=== PATIENT | female | born 1945 | race Caucasian/White ===

== ENCOUNTER 2019-08-20 15:51 | Outpatient (CLI) | payer MEDICARE, OTHER, SELFPAY ==
--- NOTE | ~2019-08-20 | US_ITS ---
EXAMINATION: US venous doppler [facility] DATE: 08/20/2019 16:36 INDICATION: Lower limb pain. TECHNIQUE: Grayscale ultrasound images without and with compression and Doppler ultrasound images of the bilateral lower extremity veins were obtained. COMPARISON: Ultrasound 08/03/2011 FINDINGS: The visualized portions of right common femoral vein, profunda (deep) femoral vein, femoral vein, pop liteal vein, peroneal veins, posterior tibial veins, and greater saphenous vein outflow are patent. The visualized portions of left common femoral vein, profunda femoral vein, femoral vein, popliteal v ein, peroneal veins, posterior tibial veins, and greater saphenous vein outflow are patent. IMPRESSION: 1. No deep venous thrombosis. Reviewed, dictated and finalized at location A.
== END 2019-08-20 15:52 | disposition home or self-care (01) ==
PROVIDERS: PCP Internal Medicine; Visit Provider Internal Medicine
DX: M79.604 Pain in right leg (principal); M79.605 Pain in left leg
CPT/HCPCS: 93970

== ENCOUNTER 2025-04-25 21:57 | Emergency (ER) | payer MEDICARE, BC, SELFPAY ==
--- OUTSIDE RECORDS SUMMARY | 2025-04-23 14:33 | XMS_ITS | Encounter Summary ---
Author Organization [facility] Healthcare Address [address] [place] [address] Care Team Providers Care Air And Water Tester Name Role Phone Jerome Dunn MD Primary Care Provider Bandar Ferrera MD Unavailable [phone] Encounter Details Date Type Department Care Team (Latest Contact Info) Description 04/23/2025 2:33 PM EQUITY HOLDER - 04/23/2025 11:59 PM EQUITY HOLDER Hospital Encounter [address] [address] Discharge Disposition: Discharge to home or self care Social History Tobacco Use Types Packs/Day Years Used Date Smoking Tobacco: Never Smokeless Tobacco: Never Alcohol Use Standard Drinks/Week Comments Not Currently 0 (1 standard drink = 0.6 oz pur e alcohol) OASIS D0700: Social Isolation Answer Da te Recorded Frequency of experiencing loneliness or isolatio n Never 04/03/2025 OASIS A1250: Transportation Answer Date Recorded Lack of Transportation (Medical) No 04/03/2025 Lack of Transportation (Non-Medical) No 04/03/2025 Patient Unable or Declines to Respond No 04/03/2025 OASIS B1300: Health Literacy Answer Moises e Recorded Frequency of needing help to read materials from doctor or pharmacy Always 04/03/2025 AUDIT-C Answer Date Recorded Q1: How often do you have a drink containing alc ohol? Never 05/27/2021 Average Number of Drinks Not on file 021 Frequency of Binge Drinking Not on file 05/13 PHQ-2 Answer Date Recorded PHQ-2 Total Score (If total score is 3 or more points, staff should administer the PHQ-9) 0 11/14/2024 Comments No Sex and Gender Information Value Date Recorded Sex Assigned at Not on file Legal Sex Female 3:43 AM EQUITY HOLDER Gender Identity Female 03/02/2021 12:42 PM CDT Sexual Orientation Straight 11/20/2018 1: 02 AM CDT documented as of this encounter Functional Status * BP Location Answer Date of Assessment Author Left arm 04/23/2025 12:51 PM EQUITY HOLDER Janet No RN * BP Location Answer Date of Assessment Author Left arm 04/23/2025 12:51 PM EQUITY HOLDER Janet No, ARMAAN documented as of this encounter Medications at Time of Discharge cholecalciferol (VITAMIN D-3) 1,000 unit cyanocobalamin (Vitamin B-12) 1,000 mcg tabletIndications :Prevention of Vitamin B12 Deficiency Take 1 tablet (1,000 mcg total) by mouth daily documented as of this encounter Discharge Disposition Disposition Code Departure Means Destination Discharge to home or self care documented in this encounter Plan of Treatment Not on file documented as of this encounter Procedures Procedure Name Priority Date/Time Associated Diagnosis Comments URINALYSIS AND REFLEX TO MICROSCOPIC AND CULTURE Routine 04/23/2025 12:30 PM EQUITY HOLDER documented in this encounter Results * Urinalysis reflex to microscopic and culture Urine (04/23/2025 12:30 PM EQUITY HOLDER) Color, ur Straw Yellow Clarity, ur Clear Clear [facility] Specific gravity, ur 1.011 1.003 - 1.030 [facility] pH, urine 5.5 [facility] Comment: Interpretive Data U rine pH is affected by diet, medications, systemic acid-base disturbances, and renal tubular function. pH may affect urinary stone formation. For example, urine pH below 6.0 may help reduce the tendency for calcium phosphate stones and pH greater than 6.0 may reduce the tendency for uric acid stone formation. Source: [facility] Current Interpretive Data was last revised on 2017 Protein, ur ql Negative Negative [facility] Glucose, ur ql Negative Negative [facility] Ketones, ur Negative Negative [facility] Bilirubin, ur Negative Negative [facility] Blood, ur Negative Negative [facility] Urobilinogen, ur <2.0 <2.0 mg/dL [facility] Nitrite, ur Negative Negative [facility] Leukocyte esterase, ur Negative Negative [facility] UA reflex comment Reflex conditions for microscopic UA and culture not met. [facility] Urine 04/23/2025 12:3 0 PM EQUITY HOLDER 04/23/2025 4:27 PM EQUITY HOLDER Jerome Dunn MD LAB MICROBIOLOGY - GEN ERAL ORDERABLES Final Result [facility] Department [place] [address] documented in this encounter Visit Diagnoses Not on filedocumented in this encounter Care Teams Air And Water Tester Relationship Specialty Start Date End Date Jerome Dunn MD PCP - General Internal Medicine 11/23/17 Bandar Ferrera MD Referring Physician Neurology 11/30/17 documented as of this encounter
--- OUTSIDE RECORDS SUMMARY | 2025-04-24 13:15 | XMS_ITS | Encounter Summary ---
Author Organization [facility] Healthcare Address [address] [place] [address] Care Team Providers Care Hand Driller Name Role Phone Jerome Dunn MD Primary Care Provider Bandar Ferrera MD Unavailable [phone] Reason for Visit * Auth/Cert (Routine) Specialty Diagnoses / Procedures Referred By Contac t Referred To Contact Referral ID Status Reason Start Date Expiration Date Visits Re quested Visits Authorized [id number] 1 1 Encounter Details Date Type Department Care Team (Late st Contact Info) Description 04/24/2025 1:15 PM CREDIT CHECKER Home Care Visit [facility] [address] [place] [address] Nancie Oscar, ENVIRONMENTAL SOLUTIONS ENGINEER ENVIRONMENTAL SOLUTIONS ENGINEER HOME VISIT Social History Tobacco Use Types Packs/Day Years [...] on file Legal Sex Female 3:43 AM CREDIT CHECKER Gender Identity Female 03/02/2021 12:42 PM CDT Sexual Orientation Straight 11/20/2018 1: 02 AM CDT documented as of this encounter Last Filed Vital Signs Vital Sign Reading Time Taken Comments Blood Pressure 132/80 04/24/2025 1:29 PM CREDIT CHECKER Pulse 71 04/24/2025 1:29 PM CREDIT CHECKER Temperature 36.4 C (97.5 F) 04/24/2025 1:29 PM CREDIT CHECKER Respiratory Rate 18 04/24/2025 1:29 PM CREDIT CHECKER Oxygen Saturation 98% 04/24/2025 1:29 PM CREDIT CHECKER Inhaled Oxygen Concentration - - Weight - - Height - - Body Mass Index - - documented in this encounter Functional Status * BP Location Answer Date of Assessment Author Right arm 04/24/2025 1:29 PM CREDIT CHECKER Nancie Aguilar SLP * BP Location Answer Date of Assessment Author Right arm 04/24/2025 1:29 PM CREDIT CHECKER Nancie Aguilar SLP documented as of this encounter Miscellaneous Notes * Home Health Plan for Next Visit - Nancie Oscar SLP - 04/24/2025 2:03 PM CST Reason for today's visit: skilled ST services for cognitive communication abilities Discuss plan of care with patient and patient caregiver. Discharge planning: DC when goals are met or max potential is reached Plan for next visit: therex for functional recall and safety awareness, education regarding cognitive strategies, and continued HEP development IT CHECKER documented in this encounter Plan of Treatment Not on file documented as of this encounter Visit Diagnoses Not on filedocumented in this encounter Home Health Visit - Care Plan Visit Details Visit Type -ENVIRONMENTAL SOLUTIONS ENGINEER Home Visit Discipline -Speech Language Pathology Problems Problem Description Start Date Status Goals Interve ntions Pressure Prevention Disciplines: Skilled Disciplines Pressure Prevention 04/03/2025 Active 1 goal linked to scheduled/documen cristy intervention 1 goal intervention scheduled/documen cristy in this visit Monitor patient's vital signs every home health visit Disciplines: Skilled Disciplines, SN, PT, OT, ENVIRONMENTAL SOLUTIONS ENGINEER, VOLCANOLOGY TEACHER Monitor patient's vital signs every home health visit. 04/03/2025 Active 1 goal linked to scheduled/documen cristy intervention 1 goal intervention scheduled/documen cristy in this visit Infection Prevention Disciplines: Skilled Disciplines Infection Prevention 04/03/2025 Active 1 goal linked to scheduled/documen cristy intervention 2 goal interventions scheduled/documen cristy in this visit Fall Precautions/Safe ty Concerns Disciplines: Skilled Disciplines Fall precautions and general safety 04/03/2025 Active 1 goal linked to scheduled/documen cristy intervention 1 goal intervention scheduled/documen cristy in this visit Knowledge Deficit - Other Disease Process and Management Disciplines: Skilled Disciplines Other disease process and management not already specified White Matter Disease 04/03/2025 Active 1 goal linked to scheduled/documen cristy intervention 2 goal interventions scheduled/documen cristy in this visit Depression Disciplines: Skilled Disciplines Depression 04/03/2025 Active 1 goal linked to scheduled/documen cristy intervention 3 goal interventions scheduled/documen cristy in this visit Instruct/evaluat e cognitive function Disciplines: Speech Language Pathology Review patient's current cognitive status and create management plan 04/10/2025 Active - 2 problem interventions scheduled/documen cristy in this visit Goals Goal Associated Problem Outcome Goal Met? Visit Notes Prevent development of pressure injuries Description: inspector type goal: The patient will maintain intact skin and avoid the development of pressure injuries within 1 month Short term goal: The patient/caregiver will understand and adhere to pressure prevention interventions within 2 visits Pressure Prevention No Measure vital signs during every home health visit during episode of care Description: Home dairy quality assurance officer to measure vital signs during every home health visit during episode of care. Monitor patient's vital signs every home health visit No Verbalize signs of infection Description: Patient/caregiver will demonstrate knowledge of infection prevention strategies by verbalizing signs and symptoms of infection. Infection Prevention No Demonstrate fall and safety precautions Description: Patient/caregiver maintains safe home environment as evidenced by remaining free from falls, injury due to falls, demonstrating safety precautions, and identifying strategies to reduce falls by 05/04/25 Fall Precautions/Safety Concerns No Understanding of disease process Description: Patient/caregiver will demonstrate understanding of disease process by verbalizing signs and symptoms, preventative measures, and when to report to home care agency or provider. Knowledge Deficit - Other Disease Process and Management No Demonstrate knowledge of depression Description: Patient/caregiver to demonstrate knowledge of depression as evidence by verbalization of signs and symptoms of depression and when to report to physician. Depression No Interventions Intervention Associated Problem/Goal Status Variance Visit Notes Instruct on Pressure Prevention Description: Instruct patient/caregiver on inspecting the skin regularly for signs of impaired skin integrity, repositioning the patient on an individualized schedule according to the patient's tissue tolerance, skin condition, mobility, medical condition, and treatm ent goals. Avoid vigorous massage and emphasize the importance of increasing activity and mobility. Avoid using donut-shaped devices and foam cutouts for pressure redistribution. Determine if patient is using or needs a pressure reduction surface. Instruct patient/caregiver on using moisture barriers and absorbent pads/briefs as needed, avoiding prolonged skin contact with wet materials, and cleaning and drying skin thoroughly after incontinence episodes. If patient is malnourished instruct patien t/caregiver on physician ordered diet, increased fluid intake if not contraindicated, and a list of possible protein sources to promote skin integrity. Problem:Pressure Prevention Goal:Prevent development of pressure injuries Performed Monitor Vital Signs Description: Monitor blood pressure, pulse, oxygen saturation, respirations Problem:Monitor patient's vital signs every home health visit Goal:Measure vital signs during every home health visit during episode of care Performed Educate Patient on Infection Prevention Description: Instruct patient on signs and symptoms of infection IE: fever, odor, change in color, increased amount of drainage, purulent drainage, warmth. Problem:Infection Prevention Goal:Verbalize signs of infection Performed Educate Family on Infection Prevention Description: Instructed family on signs and symptoms of infection IE: fever, odor, change in color, increased amount of drainage, purulent drainage, warmth. Problem:Infection Prevention Goal:Verbalize signs of infection Performed High Fall Risk Precautions Description: Instruct patient/caregiver to use proper lighting in all areas, stand/sit up slowly, use appropriate footwear when walking, use proper assistive devices, and to keep pathways clear of cords and clutter to prevent falls. Remove/secure throw rugs. Educate patient on medications and disease processes that increase fall risk, using corrective lenses as prescribed, placing hard to reach items within reach, what to do in the event of a fall and to report any falls to the home health agency. Problem:Fall Precautions/Safety Concerns Goal:Demonstrate fall and safety precautions Performed Instructed patient/caregiver on fall risk prevention including: standing/sitting up slowly and using proper assistive devices Patient and Caregiver verbalized understanding Notification of Complications Description: Instruct patient/caregiver when to notify SN/MD of complications Problem:Knowledge Deficit - Other Disease Process and Management Goal:Understanding of disease process Performed Instruct on Disease Process Description: Instruct patient/caregiver on disease process and management White Matter Disease Problem:Knowledge Deficit - Other Disease Process and Management Goal:Understanding of disease process Performed Instruct on Depression Description: Instruct patient/caregiver on signs/symptoms of depression. Problem:Depression Goal:Demonstrate knowledge of depression Performed Assess signs/symptoms of Depression Description: Assess signs/symptoms of depression and emotional well-being. Problem:Depression Goal:Demonstrate knowledge of depression Performed Assess depression Description: Assess depression. Problem:Depression Goal:Demonstrate knowledge of depression Performed Assess cognitive status Description: Assess and/or reassess cognitive status. Problem:Instruct/analisa lovett cognitive function Performed Targeted carryover from recall task from previous visit (recall of energy conservation strategies) with 4/5 acc with minimal skilled v/v instruction required. Instruct cognitive strategies Description: Instruct patient/caregiver in cognitive strategies. Problem:Instruct/analisa lovett cognitive function Performed Education regarding memory strategies including writing information down (using a calendar for managing appointments/events, keeping a pad of paper and pen near where she sits, writing down a few events from each day), repetition (saying something over a nd over or doing something over and over), routine (doing things in the same order everytime, keeping items in the same place), association (connecting something new to something she already knows), visualization (picture it), and humor with handout prov ided and patient demonstrating comprehension. documented in this encounter Care Teams Hand Driller Relationship Specialty Start Date End Date Jerome Dunn MD PCP - General Internal Medicine 11/23/17 Bandar Ferrera MD Referring Physician Neurology 11/30/17 documented as of this encounter
--- NOTE | ~2025-04-25 | XR_ITS ---
XR knee RT 3V INDICATION: fall . COMPARISON: None. FINDINGS: Frontal, lateral and oblique views of the right knee demonstrate no acute fracture or dislocation. There is no joint effusion. Knee arthroplasty is noted. Components are well-seated. No loosening evident. IMPRESSION: Radiographic examination of the right knee demonstrates no acute fracture or dislocation. Reviewed, dictated and finalized at location S. RNATIONAL LOGISTICS MANAGER IMPRESSION: Radiographic examination of the right knee demonstrates no acute fracture or di slocation.
--- NOTE | ~2025-04-25 | CT_ITS ---
CT cervical spine wo con HISTORY: fall COMPARISON: None TECHNIQUE: Axial images of the cervical spine were obtained. Multiplanar reconstruction in the coronal, sagittal and axial reformats to evaluate for cervical fracture. FINDINGS: The images demonstrate no acute fracture or paravertebral soft tissue swelling. Moderate multilevel degenerative changes with facet joint arthropathy resulting in moderate neural foraminal narrowing. There is no severe central canal stenosis. 4 mm pulmonary nodule within the left upper lobe. IMPRESSION: No acute fracture or subluxation. All CT scans at this facility are performed using low dose modulation techniques as appropriate to perform exam including the following: automated exposure control; adjustment of the mA and/or kV according to patient size (this includes techniques or standardized protocols for targeted exams where does is matched to indication/reason for exam; i.e. extremities or head); use of iterative reconstruction technique). Reviewed, dictated and finalized at location S. LOPE FOLDING MACHINE ADJUSTER IMPRESSION: No acute fracture or subluxation. All CT scans at this facility are performed using low dose modulation techniqu es as appropriate to perform exam including the following: automated exposure c ontrol; adjustment of the mA and/or kV according to patient size (this includes techniques or standardized protocols for targeted exams where does is matched to indication/reason for exam; i.e. extremities or head); use of iterative charlie nstruction technique).
--- NOTE | ~2025-04-25 | CT_ITS ---
CT brain wo con HISTORY:fall COMPARISON: None. TECHNIQUE: Axial images were obtained of the head without intravenous contrast. FINDINGS: No acute intracranial hemorrhage, mass effect or midline shift. No extra-axial fluid collections. There is generalized atrophy and chronic white matter microangiopathic changes within the periventricular white matter. Left frontal scalp hematoma is noted.There is a polyp or mucous retention cysts in the left maxillary sinus. Remaining visualized paranasal sinuses and mastoid air cells are clear. IMPRESSION: No acute intracranial hemorrhage or extra axial fluid collections. Generalized atrophy and chronic white matter microangiopathic changes. All CT scans at this facility are performed using low dose modulation techniques as appropriate to perform exam including the following: automated exposure control; use of iterative reconstruction technique; adjustment of the mA and/or kV according to patient size (this includes techniques or standardized protocols for targeted exams where dose is matched to indication/reason for exam). Reviewed, dictated and finalized at location S. PAD KNOCKOUT WORKER IMPRESSION: No acute intracranial hemorrhage or extra axial fluid collections. Generalized atrophy and chronic white matter microangiopathic changes. All CT scans at this facility are performed using low dose modulation techniqu es as appropriate to perform exam including the following: automated exposure c ontrol; use of iterative reconstruction technique; adjustment of the mA and/or kV according to patient size (this includes techniques or standardized protocol s for targeted exams where dose is matched to indication/reason for exam).
--- OUTSIDE RECORDS SUMMARY | 2025-04-25 10:00 | XMS_ITS | Encounter Summary ---
Author Organization [facility] Healthcare Address [address] [place] [address] Care Team Providers Care General Office Associate Name Role Phone Jerome Dunn MD Primary Care Provider Bandar Ferrera MD Unavailable [phone] Reason for Visit * Auth/Cert (Routine) Specialty Diagnoses / Procedures Referred By Contac t Referred To Contact Referral ID Status Reason Start Date Expiration Date Visits Re quested Visits Authorized [id number] 1 1 Encounter Details Date Type Department Care Team (Late st Contact Info) Description 04/25/2025 10:00 AM EXHAUST TENDER Home Care Visit [facility] [address] [address] [address] [place] [address] Suzi Bellamy OT OT REASSESSMENT Social History Tobacco Use Types Packs/Day Years [...] on file Legal Sex Female 3:43 AM EXHAUST TENDER Gender Identity Female 03/02/2021 12:42 PM CDT Sexual Orientation Straight 11/20/2018 1: 02 AM CDT documented as of this encounter Last Filed Vital Signs Vital Sign Reading Time Taken Comments Blood Pressure 132/68 04/25/2025 10:32 AM EXHAUST TENDER Pulse 73 04/25/2025 10:32 AM EXHAUST TENDER Temperature 36.4 C (97.5 F) 04/25/2025 10:32 AM EXHAUST TENDER Respiratory Rate 18 04/25/2025 10:32 AM EXHAUST TENDER Oxygen Saturation 96% 04/25/2025 10:32 AM EXHAUST TENDER Inhaled Oxygen Concentration - - Weight - - Height - - Body Mass Index - - documented in this encounter Functional Status * BP Location Answer Date of Assessment Author Left arm 04/25/2025 10:32 AM EXHAUST TENDER Suzi Bellamy OT * BP Location Answer Date of Assessment Author Left arm 04/25/2025 10:32 AM EXHAUST TENDER Suzi Bellamy OT documented as of this encounter Plan of Treatment Not on file documented as of this encounter Visit Diagnoses Not on filedocumented in this encounter Home Health Visit - Care Plan Visit Details Visit Type -OT Reassessment Discipline -Occupational Therapy Problems Problem Description Start Date Status Goals Interve ntions Pressure Prevention Disciplines: Skilled Disciplines Pressure Prevention 04/03/2025 Active 1 goal linked to scheduled/documen cristy intervention 1 goal intervention scheduled/documen cristy in this visit Monitor patient's vital signs every home health visit Disciplines: Skilled Disciplines, SN, PT, OT, SOIL FERTILITY EXTENSION SPECIALIST, PORT PATROL OFFICER Monitor patient's vital signs every home health [...] goal interventions scheduled/documen cristy in this visit Goals Goal Associated Problem Outcome Goal Met? Visit Notes Prevent development of pressure injuries Description: truck terminal manager goal: The patient will maintain intact skin and avoid the development of pressure injuries within 1 month Short term goal: The patient/caregiver will understand and adhere to pressure prevention interventions within 2 visits Pressure Prevention No Measure vital signs during every home health visit during episode of care Description: Home behavior clinician to measure vital signs during every home [...] Problem:Pressure Prevention Goal:Prevent development of pressure injuries Scheduled Monitor Vital Signs Description: Monitor blood pressure, pulse, oxygen saturation, respirations Problem:Monitor patient's vital signs every home health visit Goal:Measure vital signs during every home health visit during episode of care Scheduled Educate Patient on Infection Prevention Description: Instruct patient on signs and symptoms of infection IE: fever, odor, change in color, increased amount of drainage, purulent drainage, warmth. Problem:Infection Prevention Goal:Verbalize signs of infection Scheduled Educate Family on Infection Prevention Description: Instructed family on signs and symptoms of infection IE: fever, odor, change in color, increased amount of drainage, purulent drainage, warmth. Problem:Infection Prevention Goal:Verbalize signs of infection Scheduled High Fall Risk Precautions Description: Instruct patient/caregiver [...] Precautions/Safety Concerns Goal:Demonstrate fall and safety precautions Scheduled Notification of Complications Description: Instruct patient/caregiver when to notify SN/MD of complications Problem:Knowledge Deficit - Other Disease Process and Management Goal:Understanding of disease process Scheduled Instruct on Disease Process Description: Instruct patient/caregiver on disease process and management White Matter Disease Problem:Knowledge Deficit - Other Disease Process and Management Goal:Understanding of disease process Scheduled Instruct on Depression Description: Instruct patient/caregiver on signs/symptoms of depression. Problem:Depression Goal:Demonstrate knowledge of depression Scheduled Assess signs/symptoms of Depression Description: Assess signs/symptoms of depression and emotional well-being. Problem:Depression Goal:Demonstrate knowledge of depression Scheduled Assess depression Description: Assess depression. Problem:Depression Goal:Demonstrate knowledge of depression Scheduled documented in this encounter Care Teams General Office Associate Relationship Specialty Start Date End Date Jerome Dunn MD PCP - General Internal Medicine 11/23/17 Bandar Ferrera MD Referring Physician Neurology 11/30/17 documented as of this encounter
--- OUTSIDE RECORDS SUMMARY | 2025-04-25 10:00 | XMS_ITS | Encounter Summary ---
Author Organization [facility] Healthcare Address [address] [place] [address] Care Team Providers Care Waste Water Plant Operator Name Role Phone Jerome Dunn MD Primary Care Provider Bandar Ferrera MD Unavailable [phone] Reason for Visit * Auth/Cert (Routine) Specialty Diagnoses / Procedures Referred By Contac t Referred To Contact Referral ID Status Reason Start Date Expiration Date Visits Re quested Visits Authorized [id number] 1 1 Encounter Details Date Type Department Care Team (Late st Contact Info) Description 04/25/2025 10:00 AM SIEBEL DEVELOPER Home Care Visit [facility] [address] [address] [address] [place] [address] Suzi Bellamy OT OT REASSESSMENT Social History [...] on file Legal Sex Female 3:43 AM SIEBEL DEVELOPER Gender Identity Female 03/02/2021 12:42 PM CDT Sexual Orientation Straight 11/20/2018 1: 02 AM CDT documented as of this encounter Last Filed Vital Signs Vital Sign Reading Time Taken Comments Blood Pressure 132/68 04/25/2025 10:32 AM SIEBEL DEVELOPER Pulse 73 04/25/2025 10:32 AM SIEBEL DEVELOPER Temperature 36.4 C (97.5 F) 04/25/2025 10:32 AM SIEBEL DEVELOPER Respiratory Rate 18 04/25/2025 10:32 AM SIEBEL DEVELOPER Oxygen Saturation 96% 04/25/2025 10:32 AM SIEBEL DEVELOPER Inhaled Oxygen Concentration - - Weight - - Height - - Body Mass Index - - documented in this encounter Functional Status * BP Location Answer Date of Assessment Author Left arm 04/25/2025 10:32 AM SIEBEL DEVELOPER Suzi Bellamy OT * BP Location Answer Date of Assessment Author Left arm 04/25/2025 10:32 AM SIEBEL DEVELOPER Suzi Bellamy OT documented as of this [...] visit Disciplines: Skilled Disciplines, SN, PT, OT, MERCHANDISE FOR RESALE PURCHASING AGENT, SURVEILLANCE OBSERVER Monitor patient's vital signs every home health [...] Notes Prevent development of pressure injuries Description: long term care pharmacist goal: The patient will maintain intact skin and avoid the development of pressure injuries within 1 month Short term goal: The patient/caregiver will understand and adhere to pressure prevention interventions within 2 visits Pressure Prevention No Measure vital signs during every home health visit during episode of care Description: Home auto transmission specialist to measure vital signs during every home [...] Scheduled documented in this encounter Care Teams Waste Water Plant Operator Relationship Specialty Start Date End Date Jerome Dunn MD PCP - General Internal Medicine 11/23/17 Bandar Ferrera MD Referring Physician Neurology 11/30/17 documented as of this encounter
--- OUTSIDE RECORDS SUMMARY | 2025-04-25 21:59 | XMS_ITS | Encounter Summary ---
Author Organization [facility] Address [address] [place] [address] Care Team Providers Care Windshield Repair Technician Name Role Phone Jerome Dunn MD Primary Care Provider Encounter Details Date Type Department Care Team (Late st Contact Info) Description 07/20/2007 Outpatient [facility] Internal Medicine [facility] [address] [place] [phone] Bere arizmendi, MD Rubi Social History Tobacco Use Types Packs/Day Years Used Date Smoking Tobacco: Never Assessed Comments Unknown Sex and Gender Information Value Date Recorded Sex Assigned at Not on file Legal 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
--- OUTSIDE RECORDS SUMMARY | 2025-04-25 21:59 | XMS_ITS | Encounter Summary ---
Author Organization [facility] Address [address] [place] [address] Care Team Providers Care Carpet Floor Layer Apprentice Name Role Phone Jerome Dunn MD Primary Care Provider Encounter Details Date Type Department Care Team (Latest Contact Info) Description 01/19/2008 Outpatient [facility] Internal Medicine [facility] [address] [place] [phone] Rubi Guzman MD NO ADDRESS ON FILE DM w/o Complication Type II, Uncontrolled Social History Tobacco Use Types Packs/Day Years Used Date Smoking Tobacco: Never Alcohol Use Standard Drinks/Week Comments Yes 0 (1 standard drink = 0.6 oz pur e alcohol) Comments No Sex and Gender Information Value Date Recorded Sex Assigned at Not on file 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 Gender Identity Not on file Sexual Orientation Straight 04/11/2023 9: 46 PM CDT documented as of this encounter Plan of Treatment Not on file documented as of this encounter Procedures Procedure Name Priority Date/Time Associated Diagnosis Comments TSH Routine 01/19/2008 9:35 AM CDT HEMOGLOBIN A1C Routine 01/19/2008 9:35 AM CDT LIPID PANEL Routine 01/19/2008 9:35 AM CDT COMPREHENSIVE METABOLIC PANEL Routine 01/19/2008 9:35 AM CDT documented in this encounter Results * (ABNORMAL) LIPID PANEL (01/19/2008 9:35 AM CDT) HDL 47 40 - 59 mg/dL [facility] CHOLESTEROL 226(H) 100 - 199 mg/dL [facility] CHOL/HDL RATIO 4.8 2.0 - 5.0 [facility] TRIGLYCERIDE 164(H) 10 - 149 mg/dL [facility] LDL CALCULATED 146(H) <=99 mg/dL [facility] LIPID PANEL COMMENT See Below [facility] Comment: The adult ATP and pediatric NCEP classifications for lipids are available on the [facility] Intranet at: [email or web address] memorial [email or web address] Select: Lab Policies and Procedures,Current Select: Lipid Panel Interpretation Blood specimen (specimen) 01/19/2008 9:35 AM CDT 01/19/2008 12:37 PM CDT Rubi Guzman MD CHEMISTRY ORDERABLES Edit ed Performing Organization Address [facility] Co de Phone Number [facility] CLIA# [id number] [address] [place] [address] * (ABNORMAL) HEMOGLOBIN A1C (01/19/2008 9:35 AM CDT) HEMOGLOBIN A1C 10.4(H) 4.1 - 6.1 % of Hgb [facility] GLUCOSE, MEAN BLOOD 293 mg/dL [facility] Blood specimen (specimen) 01/19/2008 9:35 AM CDT 01/19/2008 12:37 PM CDT Rubi Guzman MD CHEMISTRY ORDERABLES Mahi l Result Performing Organization Address [facility] Co de Phone Number [facility] CLIA# [id number] [address] [place] [address] * TSH (01/19/2008 9:35 AM CDT) TSH 1.59 0.27 - 4.20 uU/mL [facility] Blood specimen (specimen) 01/19/2008 9:35 AM CDT 01/19/2008 12:37 PM CDT Rubi Guzman MD CHEMISTRY ORDERABLES Mahi tolbert Result [facility] CLIA# [id number] [address] [place] [address] * (ABNORMAL) COMPREHENSIVE METABOLIC PANEL (01/19/2008 9:35 AM CDT) Pathologist [facility] CALCIUM 10.0 8.6 - 10.2 mg/dL [facility] Comment:Otto mejia ce range effective 01/11/08 ALT 20 0 - 31 U/L [facility] SODIUM 140 135 - 145 mmol/L [facility] GLUCOSE 239(H) 65 - 99 mg/dL [facility] CO2 26 22 - 30 mmol/L [facility] BILIRUBIN TOTAL 0.5 0.2 - 1.0 mg/dL [facility] CREATININE 0.63 0.51 - 0.95 mg/dL [facility] POTASSIUM 4.7 3.5 - 4.9 mmol/L [facility] TOTAL PROTEIN 7.6 6.3 - 8.6 g/dL [facility] AST 20 12 - 32 U/L [facility] BUN 13 6 - 20 mg/dL [facility] ALKALINE PHOSPHATASE 86 35 - 104 U/L [facility] ALBUMIN 4.5 3.4 - 4.8 g/dL [facility] CHLORIDE 103 96 - 108 mmol/L [facility] GFR, >60 >=60 mL/min/1. 7 sq meter [facility] GFR >60 >=60 mL/min/1. 7 sq meter [facility] Comment: Modification of Diet in Renal Disease (MDRD) study formula. Estimated GFR rate interpretative information for both Americans and non- Americans is available on the [facility] Intranet at: [email or web address] Select: Lab Policies and Procedures Select: Reference Ranges - GFR Blood specimen (specimen) 01/19/2008 9:35 AM CDT 01/19/2008 12:37 PM CDT Rubi Guzman MD CHEMISTRY ORDERABLES Edit ed [facility] CLIA# [id number] [address] [place] [address] documented in this encounter Visit Diagnoses Diagnosis Type II or unspecified type diabetes mellitus without mention of complication, uncontrolled documented in this encounter Care Teams Carpet Floor Layer Apprentice Relationship Specialty Start Date End Date Jerome Dunn MD [address] [place] [address] PCP - General Internal Medicine 10/30/20 documented as of this encounter
--- OUTSIDE RECORDS SUMMARY | 2025-04-25 21:59 | XMS_ITS | Encounter Summary ---
Author Organization [facility] Address [address] [place] [place] [address] Care Team Providers Care Maintenance Pipefitter Name Role Phone Jerome Dunn MD Primary Care Provider Encounter Details Date Type Department Care Team (Latest Contact Info) Description 03/17/2007 [facility]patient [facility] [address] [address] [place] [phone] Rubi Oscar DM w/o Complication Type II (CMS/HCC) (Primary Dx) Social History Tobacco Use Types Packs/Day Years Used Date Smoking Tobacco: Never Assessed Comments Unknown Sex and Gender Information Value Date Recorded Sex Assigned at Not on file 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 Gender Identity Not on file Sexual Orientation Straight 04/11/2023 9: 46 PM CDT documented as of this encounter Plan of Treatment Not on file documented as of this encounter Procedures Procedure Name Priority Date/Time Associated Diagnosis Comments MICROALBUMIN/CREATININ E RATIO, RANDOM UR Routine 03/17/2007 8:58 AM CDT TSH Routine 03/17/2007 8:58 AM CDT HEMOGLOBIN A1C Routine 03/17/2007 8:58 AM CDT LIPID PANEL Routine 03/17/2007 8:58 AM CDT COMPREHENSIVE METABOLIC PANEL Routine 03/17/2007 8:58 AM CDT documented in this encounter Results * MICROALBUMIN/CREATININE RATIO, RANDOM UR (03/17/2007 8:58 AM CDT) MICROALBUMIN/C REAT RATIO, UR 3 0 - 29 mg/g creatinine INTERFACE SYSTEM 03/17/2007 8:58 AM CDT Glistenrudolph exozetblueSalesforce Buddy Mediabrenna URINE ORDERABLES Edited Performing Organization Address [facility] Phone Number INTERFACE SYSTEM Refer to clinic/hospital department * (ABNORMAL) HEMOGLOBIN A1C (03/17/2007 8:58 AM CDT) HEMOGLOBIN A1C 7.7(H) 4.1 - 6.1 % of Hgb INTERFACE SYSTEM GLUCOSE, MEAN BLOOD 197 mg/dL INTERFACE SYSTEM 03/17/2007 8:58 AM CDT AcEmpireadrian McdanielSalesforce Buddy Mediabrenna CHEMISTRY ORDERABLES Edited Performing Organization Address [facility] Phone Number INTERFACE SYSTEM Refer to clinic/hospital department * TSH (03/17/2007 8:58 AM CDT) Pathologist [facility] TSH 1.57 0.27 - 4.20 uU/mL INTERFACE SYSTEM 03/17/2007 8:58 AM CDT AcEmpireadrian exozetblueSalesforce Buddy Mediabrenna CHEMISTRY ORDERABLES Edited Performing Organization Address [facility] Phone Number INTERFACE SYSTEM Refer to clinic/hospital department * (ABNORMAL) COMPREHENSIVE METABOLIC PANEL (03/17/2007 8:58 AM CDT) GLUCOSE 175(H) 65 - 99 mg/dL INTERFACE SYSTEM CREATININE 0.77 0.51 - 0.95 mg/dL INTERFACE SYSTEM CALCIUM 9.4 8.4 - 10.2 mg/dL INTERFACE SYSTEM ALKALINE PHOSPHATASE 79 35 - 104 U/L INTERFACE SYSTEM AST 23 12 - 32 U/L INTERFACE SYSTEM ALT 15 0 - 31 U/L INTERFACE SYSTEM TOTAL PROTEIN 7.5 6.3 - 8.6 g/dL INTERFACE SYSTEM ALBUMIN 4.3 3.4 - 4.8 g/dL INTERFACE SYSTEM BILIRUBIN TOTAL 0.7 0.2 - 1.0 mg/dL INTERFACE SYSTEM BUN 12 6 - 20 mg/dL INTERFACE SYSTEM SODIUM 138 135 - 145 mmol/L INTERFACE SYSTEM POTASSIUM 4.1 3.5 - 4.9 mmol/L INTERFACE SYSTEM CHLORIDE 102 96 - 108 mmol/L INTERFACE SYSTEM CO2 24 22 - 30 mmol/L INTERFACE SYSTEM GFR, >60 >=60 mL/min/1. 7 sq meter INTERFACE SYSTEM GFR >60 >=60 mL/min/1. 7 sq meter INTERFACE SYSTEM Comment: Estimated GFR rate interpretative information for both Americans and non- Americans is available on the [facility] Intranet at: [email or web address] Select: Lab Policies and Procedures Select: Reference Ranges - GFR 03/17/2007 8:58 AM CDT [employer] CHEMISTRY ORDERABLES Edited Performing Organization Address [facility] de Phone Number INTERFACE SYSTEM Refer to clinic/hospital department * (ABNORMAL) LIPID PANEL (03/17/2007 8:58 AM CDT) CHOLESTEROL 210(H) 100 - 199 mg/dL INTERFACE SYSTEM TRIGLYCERIDE 163(H) 10 - 149 mg/dL INTERFACE SYSTEM HDL 47 40 - 59 mg/dL INTERFACE SYSTEM CHOL/HDL RATIO 4.5 2.0 - 5.0 INTER FACE SYSTEM LDL CALCULATED 130(H) <=99 mg/dL INTERFACE SYSTEM LIPID PANEL COMMENT See Below INTERFACE SYSTEM Comment: The adult ATP and pediatric NCEP classifications for lipids are available on the [facility] Intranet at: [email or web address] Select: Lab Policies and Procedures,Current Select: Lipid Panel Interpretation 03/17/2007 8:58 AM CDT Pilaipun Saengsamran CHEMISTRY ORDERABLES Edited Performing Organization Address City/[facility]/ZIP Co de Phone Number INTERFACE SYSTEM Refer to clinic/hospital department documented in this encounter Visit Diagnoses Diagnosis Type II or unspecified type diabetes mellitus without mention of complication, not stated as uncontrolled- Primary documented in this encounter Care Teams Maintenance Pipefitter Relationship Specialty Start Date End Date Jerome Dunn MD [address] [address] PCP - General Internal Medicine 10/30/20 documented as of this encounter
--- OUTSIDE RECORDS SUMMARY | 2025-04-25 21:59 | XMS_ITS | Encounter Summary ---
Author Organization [facility] Address 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 Gender Identity Not on file Sexual Orientation Straight 04/11/2023 9: 46 PM CDT documented as of this encounter Last Filed Vital Signs Vital Sign Reading Time Taken Comments Blood Pressure 140/90 01/03/2007 3:00 PM CDT Pulse 88 01/03/2007 3:00 PM CDT Temperature 36.7 C (98 F) 01/03/2007 3:00 PM CDT Respiratory Rate 20 01/03/2007 3:00 PM CDT Oxygen Saturation - - Inhaled Oxygen Concentration - - Weight 106.1 kg (234 lb) 01/03/2007 3:00 PM CDT Height 163.8 cm (5' 4.5) 01/03/2007 3:00 PM CDT Body Mass Index 39.55 01/03/2007 3:00 PM CDT documented in this encounter Plan of Treatment Not on file documented as of this encounter Visit Diagnoses Not on filedocumented in this encounter Care Teams Hot Dip Tinning Supervisor Relationship Specialty Start Date End Date Jerome Dunn MD [address] [place] [address] PCP - General Internal Medicine 10/30/20 documented as of this encounter
--- OUTSIDE RECORDS SUMMARY | 2025-04-25 22:00 | XMS_ITS | Encounter Summary ---
Author Organization [facility] Address [address] [place] [address] Care Team Providers Care Methane Gas Collection System Operator Name Role Phone Jerome Dunn MD Primary Care Provider Encounter Details Date Type Department Care Team (Late st Contact Info) Description 04/08/2008 Outpatient [facility] Betzaida Hodge MD [address] 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 Gender Identity Not on file Sexual Orientation Straight 04/11/2023 9: 46 PM CDT documented as of this encounter Plan of Treatment Not on file documented as of this encounter Procedures Procedure Name Priority Date/Time Associated Diagnosis Comments CT CHEST W CONTRAST Routine 04/08/2008 10:55 AM CDT XR FLUORO LESS THAN 1 HOUR Timed Study 04/08/2008 10:24 AM CDT documented in this encounter Results * CT CHEST W CONTRAST (04/08/2008 10:55 AM CDT) Anatomical Region Laterality Modality Chest Other 04/08/2008 10:5 5 AM CDT Narrative 04/09/2008 8:57 AM CDT [address] [place], [place] [address] Admit Date: 04/08/2008 JUSTA PATIÑO Sex: F Admit Prov: BETZAIDA HODGE Date: 1945 Primary Care Prov: LYNNE CLIFTON CMRN: [id number] Room: [facility] SSN: [id number] IMAGING SERVICES Ordering Prov: N/A Accession Number: [id number] Interpretation CT CHEST WITH IV CONTRAST, 04/08/08 Clinical History: 786.2, cough, elevated right hemidiaphragm. CT of the chest was performed with IV contrast. There are no previous CT scans of the chest available for comparison. The right hemidiaphragm is elevated. Atelectatic changes are present in the right lower lobe. Scattered mediastinal calcifications are present in the aorticopulmonary window and subcarinal region. A calcified granuloma is present posteriorly in the left lower lobe on image 34. On image 7 there is a 5 mm pulmonary parenchymal noncalcified nodular density. There is no evidence of pleural effusion or pneumothorax. Opinion: There is elevation of the right hemidiaphragm and atelectatic changes in the right lower lobe. There is a noncalcified pulmonary nodular density in the right lung apex. Followup is recommended. Mediastinal calcifications are present in the subcarinal region and aorticopulmonary window. . Dictated by: BAIRON LUI 04/08/2008 13:21 Electronically signed by: BAIRON LUI 04/09/2008 08:56 Transcribed: 04/08/2008 14:57 LE Procedure Note Bairon Lui MD - 04/09/2008 [facility] [address] [place], [place] [address] Admit Date: 04/08/2008 JUSTA PATIÑO Sex: F Admit Prov: BETZAIDA HODGE Date:1945 Primary Care Prov: LYNNE CLIFTON CMRN: [id number] [facility] [id number] IM[facility] Ordering Prov: N/A Interpretation CT CHEST WITH IV CONTRAST, 04/08/08 Clinical History: 786.2, cough, elevated right hemidiaphragm. CT of the chest was performed with IV contrast. There are no previousCT scans of the chest available for comparison. The right hemidiaphragmis elevated. Atelectatic changes are present in the right lower lobe. Scattered mediastinal calcifications are present in theaorticopulmonary window and subcarinal region. A calcified granuloma is presentposteriorly in the left lower lobe on image 34. On image 7 there is a 5 mmpulmonary parenchymal noncalcified nodular density. There is no evidence ofpleural effusion or pneumothorax. Opinion: There is elevation of the right hemidiaphragm and atelectatic changesin the right lower lobe. There is a noncalcified pulmonary nodular density in the right lungapex. Followup is recommended. Mediastinal calcifications are present in the subcarinal region and aorticopulmonary window. . Dictated by: BAIRON LUI 04/08/2008 13:21 Electronically signed by: BAIRON LUI 04/09/2008 08:56 Transcribed: 04/08/2008 14:57 LE Betzaida Hodge MD CT ORDERABLES Final Result * XR FLUORO < 1 HOUR (04/08/2008 10:24 AM CDT) Anatomical Region Laterality Modality Other 04/08/2008 10:2 4 AM CDT Narrative 04/09/2008 7:[address] [facility] [address] [place], [place] [address] Admit Date: 04/08/2008 LAMARTRUDYJUSTA BOND Sex: F Admit Prov: BETZAIDA HODGE Date: 1945 Primary Care Prov: LYNNE CLIFTON CMRN: [id number] Room: [facility] SSN: [id number] IMAGING SERVICES Ordering Prov: N/A Accession Number: [id number] Interpretation FLUOROSCOPY OF THE CHEST FOR ASSESSMENT OF DIAPHRAGMATIC MOTION, 04/08/2008 Clinical History: Prior neck injury, elevated diaphragm, 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 A preliminary tree climber radiograph of the chest demonstrates a prominently elevated right hemidiaphragm. Fluoroscopic observation of diaphragmatic movement was obtained during quiet respiration, deep inspiration and during sniffing. There is noted to be some definitive paradoxical movement of the elevated right diaphragm during inspiration and sniffing, consistent with right diaphragmatic paralysis. Left diaphragmatic movement appears normal. Impression: Markedly elevated right diaphragm with definitive paradoxical right diaphragmatic movement, compatible with right diaphragmatic paralysis. . Dictated by: CHANDRA SWANSON 04/08/2008 10:49 Electronically signed by: CHANDRA SWANSON 04/09/2008 07:28 Transcribed: 04/08/2008 13:30 SMM Procedure Note Chandra Swanson MD - 04/09/[address] [address] Admit Date: 04/08/2008 PARIMONTYJUSTA AGUAYO Sex: F Admit Prov: BETZAIDA HODGE Date:1945 Primary Care Prov: LYNNE CLIFTON CMRN: [id number] Room: [facility] SSN: [id number] IMAGING SERVICES Ordering Prov: N/A Interpretation FLUOROSCOPY OF THE CHEST FOR ASSESSMENT OF DIAPHRAGMATIC MOTION,04/08/2008 Clinical History: Prior neck injury, elevated diaphragm, 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 A preliminary tree climber radiograph of the chest demonstrates aprominently elevated right hemidiaphragm. Fluoroscopic observation ofdiaphragmatic movement was obtained during quiet respiration, deep inspiration andduring sniffing. There is noted to be some definitive paradoxical movementof the elevated right diaphragm during inspiration and sniffing, consistentwith right diaphragmatic paralysis. Left diaphragmatic movement appearsnormal. Impression: Markedly elevated right diaphragm with definitive paradoxical right diaphragmatic movement, compatible with right diaphragmaticparalysis. . Dictated by: CHANDRA SWANSON 04/08/2008 10:49 Electronically signed by: CHANDRA SWANSON 04/09/2008 07:28 Transcribed: 04/08/2008 13:30 SMM Betzaida Hodge MD DIAGNOSTIC IMAGING ORD ERABLES Final Result documented in this encounter Visit Diagnoses Diagnosis Cough documented in this encounter Care Teams Methane Gas Collection System Operator Relationship Specialty Start Date End Date Jerome Dunn MD [address] [place] [address] PCP - General Internal Medicine 10/30/20 documented as of this encounter
--- OUTSIDE RECORDS SUMMARY | 2025-04-25 22:00 | XMS_ITS | Encounter Summary ---
Author Organization [facility] Address [address] [place] [address] Care Team Providers Care Director Shopper Marketing Name Role Phone Jerome Dunn MD Primary Care Provider Encounter Details Date Type Department Care Team (Latest Contact Info) Description 08/14/2008 Outpatient Historical [facility] Rubi Roblero MD NO ADDRESS ON FILE DM w/o Complication Type II (CMS/HCC) Social History Tobacco Use Types Packs/Day Years Used Date Smoking Tobacco: Never Alcohol Use Standard Drinks/Week Comments Yes 0 (1 standard drink = 0.6 oz pur e alcohol) Comments No Sex and Gender Information Value Date Recorded Sex Assigned at Not on file 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
--- OUTSIDE RECORDS SUMMARY | 2025-04-25 22:00 | XMS_ITS | Encounter Summary ---
Author Organization [facility] Address [address] [place] [address] Care Team Providers Care Mail Sorter And Delivery Name Role Phone Jerome Dunn MD Primary Care Provider Bandar Ferrera MD Unavailable [phone] Encounter Details Date Type Department Care Team (Late st Contact Info) Description 03/29/2025 Results Follow-Up [facility] [address] [place] [address] Jerome Dunn MD [address] [place] [address] [address] [place] [address] Basic metabolic panel Social History Tobacco Use Types Packs/Day Years Used Date Smoking Tobacco: Never Smokeless Tobacco: Never Alcohol Use Standard Drinks/Week Comments Not Currently 0 (1 standard drink = 0.6 oz pur e alcohol) AUDIT-C Answer Date Recorded Q1: How often [...] on file Legal Sex Female 3:43 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 Gender Identity Female 03/02/2021 12:42 PM CDT Sexual Orientation Straight 11/20/2018 1: 02 AM CDT documented as of this encounter Functional Status * BP Location Answer Date of Assessment Author Left arm 03/29/2025 1:47 PM CDT Tuan Roth CMA * BP Location Answer Date of Assessment Author Left arm 03/29/2025 1:47 PM CDT Tuan Roth CMA documented as of this encounter Plan of Treatment Not on file documented as of this encounter Visit Diagnoses Not on filedocumented in this encounter Care Teams Mail Sorter And Delivery Relationship Specialty Start Date End Date Jerome Dunn MD PCP - General Internal Medicine 11/23/17 Bandar Ferrera MD Referring Physician Neurology 11/30/17 documented as of this encounter
--- OUTSIDE RECORDS SUMMARY | 2025-04-25 22:00 | XMS_ITS | Encounter Summary ---
Author Organization [facility] Address [address] 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 WHO CALLED: Pharmacy called. PHARMACY NUMBER: [phone] SECTION 1: REQUESTED ACTION dedra 11/30/06 at 09:59 am: MEDICATION REQUEST: Patient requests a refill. MEDICATIONS: EVERETT ORAL TABLET 180 MG, 1 Every Day, 30 Dispensed, 3 Fills, status: DISCONTINUED, 09/30/2006. generic fexofenadine DOCTOR`S RESPONSE: ashely 11/30/06 at 10:14 am MEDICATIONS: Call in to Pharmacy FEXOFENADINE HCL ORAL TABLET 180 MG, 1 Every Day, 30 Dispensed, 3 Fills, status: NEW PRESCRIPTION, 11/30/2006. FINAL ACTION: annitayts 11/30/06 at 11:31 am Called pharmacy at 11/30/06 at 11:31 am. new rx x 3 additional Electronically Signed by: Karina Lazcano on Thursday, November 30, 2006 documented in this encounter Plan of Treatment Not on file documented as of this encounter Visit Diagnoses Not on filedocumented in this encounter Care Teams Supervisor Cigar Making Hand Relationship Specialty Start Date End Date Jerome Dunn MD [address] [place] [address] PCP - General Internal Medicine 10/30/20 documented as of this encounter
--- OUTSIDE RECORDS SUMMARY | 2025-04-25 22:00 | XMS_ITS | Encounter Summary ---
Author Organization [facility] Address [address] [place] [address] Care Team Providers Care Nurse Plastics Name Role Phone Jerome Dunn MD Primary Care Provider Encounter Details Date Type Department Care Team (Late st Contact Info) Description 01/03/2006 Outpatient [facility] Internal Medicine 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 Gender Identity Not on file Sexual Orientation Straight 04/11/2023 9: 46 PM CDT documented as of this encounter Last Filed Vital Signs Vital Sign Reading Time Taken Comments Blood Pressure 130/90 01/03/2006 11:30 AM CDT Pulse 72 01/03/2006 11:30 AM CDT Temperature 36.6 C (97.9 F) 01/03/2006 11:30 AM CDT Respiratory Rate 20 01/03/2006 11:30 AM CDT Oxygen Saturation - - Inhaled Oxygen Concentration - - Weight 98.9 kg (218 lb) 01/03/2006 11:30 AM CDT Height 163.8 cm (5' 4.5) 01/03/2006 11:30 AM CD T Body Mass Index 36.84 01/03/2006 11:30 AM CDT documented in this encounter Plan of Treatment Not on file documented as of this encounter Visit Diagnoses Not on filedocumented in this encounter Care Teams Nurse Plastics Relationship Specialty Start Date End Date Jerome Dunn MD [address] [place] [address] PCP - General Internal Medicine 10/30/20 documented as of this encounter
--- OUTSIDE RECORDS SUMMARY | 2025-04-25 22:00 | XMS_ITS | Encounter Summary ---
Author Organization [facility] Address [address] [place] [address] Care Team Providers Care Insurance Executive Name Role Phone Jerome Dunn MD Primary Care Provider Encounter Details Date Type Department Care Team (Latest Contact Info) Description 07/24/2008 Outpatient Historical [facility] Usama Hodge MD [address] [place] [address] [address] [place] [address] Abn Findings-Lung Field Social History Tobacco Use Types Packs/Day Years Used Date Smoking Tobacco: Never Alcohol Use Standard Drinks/Week Comments Yes 0 (1 standard drink = 0.6 oz pur e alcohol) Comments No Sex and Gender Information Value Date Recorded Sex Assigned at Not on file 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 Gender Identity Not on file Sexual Orientation Straight 04/11/2023 9: 46 PM CDT documented as of this encounter Plan of Treatment Not on file documented as of this encounter Procedures Procedure Name Priority Date/Time Associated Diagnosis Comments CT CHEST WO CONTRAST Timed Study 07/24/2008 9:27 AM DIRECTOR DATABASE documented in this encounter Results * CT CHEST WO CONTRAST (07/24/2008 9:27 AM DIRECTOR DATABASE) Anatomical Region Laterality Modality Chest Other 07/24/2008 9:27 AM DIRECTOR DATABASE Narrative 07/24/2008 2:59 PM DIRECTOR DATABASE [address] [place], [place] [address] Admit Date: 07/24/2008 NASIR PATIÑO Sex: F Admit Prov: USAMA HODGE Date: 1945 Primary Care Prov: SARAH ROMO CMRN: [id number] Room: [facility] SSN: [id number] [id number] IMAGING SERVICES Ordering Prov: N/A Accession Number: [id number] Interpretation CT CHEST WITHOUT CONTRAST, 07/24/08 History: Pulmonary nodule followup. Cough and right hemidiaphragmatic elevation. Technique: Multidetector noncontrast helical scanning of the thorax with tip at 5 mm axial reconstruction intervals. Comparison is made to the previous examination of 04/08/2008. Findings: An ill-defined 5 mm nodular opacity is seen within the right apex on image 14 which has not significantly changed in size since the 04/08/2008 examination when considering differences in scanning technique. An adjacent 3 mm nodular density seen more anteriorly on the same image which was not previously evident. Additional 3 mm nodules are seen within the left apex on image 18 and within the right middle lobe on image 43 which have not significantly change in size. Image quality through the mid to lower thorax is compromised by respiratory motion artifact. There is mild mosaic attenuation seen within both lungs. This may represent a component of air trapping. Right hemidiaphragmatic elevation persists with subsegmental atelectatic changes again noted in the right lower lobe. No pneumothorax or pleural effusion has developed. Heart size is stable. A calcified granuloma is identified in the left base, and a parenchymal calcification in the posterior aspect of the right hepatic lobe likely represents chronic granulomatous disease. Cholecystectomy clips are noted in the right upper quadrant. The bony chest wall is intact. Impression: 1. Bilateral pulmonary nodules measuring up to 5 mm in the right apex, stable since 04/08/2008. A 6 to 8 month followup examination is recommended to evaluate for change. 2. Persistent right hemidiaphragmatic elevation with subsegmental atelectatic changes in the right lower lobe. 3. Cholecystectomy changes. . Dictated by: CASEY MARTINEZ 07/24/2008 10:28 Electronically signed by: CASEY MARTINEZ 07/24/2008 14:57 Transcribed: 07/24/2008 14:40 LE Procedure Note Casey Martinez - 07/24/2008 [facility] [address] [place], [place] [address] Admit Date: 07/24/2008 NASIR PATIÑO Sex: F Admit Prov: USAMA HODGE Date:1945 Primary Care Prov: SARAH ROMO CMRN: [id number] Room: [facility] SSN: [id number] IMAGING SERVICES Ordering Prov: N/A Interpretation CT CHEST WITHOUT CONTRAST, 07/24/08 History: Pulmonary nodule followup. Cough and righthemidiaphragmatic elevation. Technique: Multidetector noncontrast helical scanning of the thoraxwith tip at 5 mm axial reconstruction intervals. Comparison is made to the previous examination of 04/08/2008. Findings: An ill-defined 5 mm nodular opacity is seen within theright apex on image 14 which has not significantly changed in size since the 04/08/2008 examination when considering differences in scanningtechnique. An adjacent 3 mm nodular density seen more anteriorly on the sameimage which was not previously evident. Additional 3 mm nodules are seenwithin the left apex on image 18 and within the right middle lobe on image43 which have not significantly change in size. Image quality throughthe mid to lower thorax is compromised by respiratory motion artifact. Thereis mild mosaic attenuation seen within both lungs. This may representa component of air trapping. Right hemidiaphragmatic elevation persistswith subsegmental atelectatic changes again noted in the right lower lobe.No pneumothorax or pleural effusion has developed. Heart size is stable.A calcified granuloma is identified in the left base, and aparenchymal calcification in the posterior aspect of the right hepatic lobelikely represents chronic granulomatous disease. Cholecystectomy clips arenoted in the right upper quadrant. The bony chest wall is intact. Impression: 1. Bilateral pulmonary nodules measuring up to 5 mm in the rightapex, stable since 04/08/2008. A 6 to 8 month followup examination isrecommended to evaluate for change. 2. Persistent right hemidiaphragmatic elevation with subsegmental atelectatic changes in the right lower lobe. 3. Cholecystectomy changes. . Dictated by: CASEY MARTINEZ 07/24/2008 10:28 Electronically signed by: CASEY MARTINEZ 07/24/2008 14:57 Transcribed: 07/24/2008 14:40 LE Usama Hodge MD CT ORDERABLES Final Result documented in this encounter Visit Diagnoses Diagnosis Nonspecific (abnormal) findings on radiological and other examination of lung field documented in this encounter Care Teams Insurance Executive Relationship Specialty Start Date End Date Jerome Dunn MD [address] [place] [address] PCP - General Internal Medicine 10/30/20 documented as of this encounter
--- OUTSIDE RECORDS SUMMARY | 2025-04-25 22:00 | XMS_ITS | Clinical Summary ---
Author Organization [facility] Address [address] [place] [address] Care Team Providers Care Budget Counselor Name Role Phone Tammy Lambert MD Primary Care Provider [phone] Source Comments [facility],non-university hospital Affiliates and Associated Physician Practices is amultiple site organization consisting of ambulatory clinics and hospital sitesin [place], [place] and [place]. This disclosure is being madepursuant to the Care Everywhere program and may not contain all information available regarding this patient. Last updated 18.[facility] Allergies Active Allergy Reactions Criticality Noted Date Comments Lisinopril 07/23/2016 Tetanus Toxoid 07/23/2016 Medications * Be aware that medications may not be up to date on this document. Alwaysverify current medications with the patient. Rosuvastatin Calcium (CRESTOR PO) Active ALPHA LIPOIC ACID PO Active vitamin b-12 (CYANCOBALAMIN) 1000 MCG tablet cr Take 1,000 mg by mouth once daily Active vitamin C (ASCORBIC ACID) 1000 MG tablet Take 1,000 mg by mouth once daily Active Ergocalciferol (VITAMIN D2 PO) Acti ve Fish Oil Active Coenzyme Q10 (CO Q 10 PO) Active METFORMIN HCL PO Act marina medroxyPROGESTER one (PROVERA) 2.5 MG tablet TAKE ONE TABLET BY MOUTH EVERY DAY 90 tablet 08/23/2019 Active Active Problems Problem Noted Date Diagnosed Date Hypertension Elevated cholesterol Diabetes Arthritis Social History Tobacco Use Types Packs/Day Years Used Date Smoking Tobacco: Never Smokeless Tobacco: Never Comments No Sex and Gender Information Value Date Recorded Sex Assigned at Not on file 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 Gender Identity Not on file Sexual Orientation Not on file Last Filed Vital Signs Vital Sign Reading Time Taken Comments Blood Pressure 124/62 11/22/2017 12:50 PM CDT Pulse - - Temperature - - Respiratory Rate - - Oxygen Saturation - - Inhaled Oxygen Concentration - - Weight 84.1 kg (185 lb 6.4 oz) 11/22/2017 12:50 PM CDT Height 165.1 cm (5' 5) 11/22/2017 12:50 PM CDT Body Mass Index 30.85 11/22/2017 12:50 PM CDT Plan of Treatment Health Maintenance Due Date Last Done Comments BONE DENSITY TESTING 1945 DIABETES-SERUM CREATININE 1961 DTAP/TDAP/TD VACCINES (1 - Tdap) 1962 PNEUMOCOCCAL VACCINE 50+ (1 of 1 - PCV) 1993 ZOSTER VACCINE (1 of 2) 1993 Respiratory Syncytial Virus (RSV) Vaccine Pt: or over 60 yrs (1 - 1-dose 75+ series) 2018 DIABETES-FOOT EXAM WITH MONOFILAMENT 08/23/2019 DIABETES-HGB A1C 08/23/2019 DEPRESSION SCREENING 06/13/2024 DIABETES - URINE PROTEIN SCREENING 06/13/2024 COVID-19 VACCINE (1 - 2023-2 5 season) 2025 INFLUENZA VACCINE (#1) 2025 HEPATITIS B VACCINE Aged Out No longe r eligible based on patient's age to complete this topic HIB VACCINE Aged Out No longer eligi ble based on patient's age to complete this topic HPV VACCINE Aged Out No longer eligi ble based on patient's age to complete this topic MENINGOCOCCAL (Group B) VACC INE SHARED DECISION-MAKING Aged Out No longer eligibl e based on patient's age to complete this topic MENINGOCOCCAL GROUPS A/C/Y/W VACCINE Aged Out No longer eligible b ased on patient's age to complete this topic Insurance [facility] [address] MEDICARE Care Teams Budget Counselor Relationship Specialty Start Date End Date Tammy Lambert MD [address] [place] [address] PCP - General Internal Medicine 11/09/16
--- OUTSIDE RECORDS SUMMARY | 2025-04-25 22:00 | XMS_ITS | Encounter Summary ---
Author Organization [facility] Address 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
--- OUTSIDE RECORDS SUMMARY | 2025-04-25 22:00 | XMS_ITS | Encounter Summary ---
Author Organization [facility] Address [address] [place] [address] Care Team Providers Care Operator Catalyst Concentration Name Role Phone Jerome Dunn MD Primary Care Provider Encounter Details Date Type Department Care Team (Latest Contact Info) Description 10/17/2006 Outpatient [facility] Internal Medicine [facility] [address] [place] [phone] Rubi Oscar DM w/o Complication Type II, Uncontrolled (Primary Dx) Social History Tobacco Use Types Packs/Day Years Used Date Smoking Tobacco: Never Assessed Comments Unknown Sex and Gender Information Value Date Recorded Sex Assigned at Not on file 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 Gender Identity Not on file Sexual Orientation Straight 04/11/2023 9: 46 PM CDT documented as of this encounter Plan of Treatment Not on file documented as of this encounter Procedures Procedure Name Priority Date/Time Associated Diagnosis Comments TSH Routine 10/17/2006 9:57 AM CDT HEMOGLOBIN A1C Routine 10/17/2006 9:57 AM CDT LIPID PANEL Routine 10/17/2006 9:57 AM CDT COMPREHENSIVE METABOLIC PANEL Routine 10/17/2006 9:57 AM CDT documented in this encounter Results * (ABNORMAL) HEMOGLOBIN A1C (10/17/2006 9:57 AM CDT) HEMOGLOBIN A1C 6.9(H) 4.1 - 6.1 % of Hgb INTERFACE SYSTEM GLUCOSE, MEAN BLOOD 168 mg/dL INTERFACE SYSTEM 10/17/2006 9:57 AM CDT [facility] Performance TrainingiMedia.fmngsaSingShot Mediabrenna CHEMISTRY ORDERABLES Edited Performing Organization Address City/[facility] de Phone Number INTERFACE SYSTEM Refer to clinic/hospital department * TSH (10/17/2006 9:57 AM CDT) TSH 1.56 0.27 - 4.20 uU/mL INTERFACE SYSTEM 10/17/2006 9:57 AM CDT us Core Mobile Networksprudolph ImageProtectngsaSingShot Med[employer]renna CHEMISTRY ORDERABLES Edited Performing Organization Address [facility] de Phone Number INTERFACE SYSTEM Refer to clinic/hospital department * (ABNORMAL) COMPREHENSIVE METABOLIC PANEL (10/17/2006 9:57 AM CDT) GLUCOSE 154(H) 65 - 99 mg/dL INTERFACE SYSTEM CREATININE 0.79 0.51 - 0.95 mg/dL INTERFACE SYSTEM CALCIUM 8.7 8.4 - 10.2 mg/dL INTERFACE SYSTEM ALKALINE PHOSPHATASE 79 35 - 104 U/L INTERFACE SYSTEM AST 18 12 - 32 U/L INTERFACE SYSTEM ALT 16 0 - 31 U/L INTERFACE SYSTEM TOTAL PROTEIN 7.6 6.3 - 8.6 g/dL INTERFACE SYSTEM ALBUMIN 4.2 3.4 - 4.8 g/dL INTERFACE SYSTEM BILIRUBIN TOTAL 0.5 0.2 - 1.0 mg/dL INTERFACE SYSTEM BUN 14 6 - 20 mg/dL INTERFACE SYSTEM SODIUM 141 135 - 145 mmol/L INTERFACE SYSTEM POTASSIUM 4.5 3.5 - 4.9 mmol/L INTERFACE SYSTEM CHLORIDE 105 96 - 108 mmol/L INTERFACE SYSTEM CO2 28 22 - 30 mmol/L INTERFACE SYSTEM GFR, >60 >=60 mL/min/1. 7 sq meter INTERFACE SYSTEM GFR >60 >=60 mL/min/1. 7 sq meter INTERFACE SYSTEM Comment: Estimated GFR rate interpretative information for both Americans and non- Americans is available on the [facility] Intranet at: [email or web address] Select: Lab Policies and Procedures Select: Reference Ranges - GFR 10/17/2006 9:57 AM CDT Pilairudolph Saemikaylasamran CHEMISTRY ORDERABLES Edited Performing Organization Address [facility] de Phone Number INTERFACE SYSTEM Refer to clinic/hospital department * (ABNORMAL) LIPID PANEL (10/17/2006 9:57 AM CDT) CHOLESTEROL 207(H) 100 - 199 mg/dL INTERFACE SYSTEM TRIGLYCERIDE 198(H) 10 - 149 mg/dL INTERFACE SYSTEM HDL 52 40 - 59 mg/dL INTERFACE SYSTEM CHOL/HDL RATIO 4.0 2.0 - 5.0 INTER FACE SYSTEM LDL CALCULATED 115(H) <=99 mg/dL INTERFACE SYSTEM LIPID PANEL COMMENT See Below INTERFACE SYSTEM Comment: The adult ATP and pediatric NCEP classifications for lipids are available on the [facility] Intranet at: [email or web address] Select: Lab Policies and Procedures Select: Reference Ranges - Lipids 10/17/2006 9:57 AM CDT us Pilaipun Saengsamran CHEMISTRY ORDERABLES Edited Performing Organization Address [facility] de Phone Number INTERFACE SYSTEM Refer to clinic/hospital department documented in this encounter Visit Diagnoses Diagnosis Type II or unspecified type diabetes mellitus without mention of complication, uncontrolled- Primary documented in this encounter Care Teams Operator Catalyst Concentration Relationship Specialty Start Date End Date Jerome Dunn MD [address] [place] [phone] PCP - General Internal Medicine 10/30/20 documented as of this encounter
--- OUTSIDE RECORDS SUMMARY | 2025-04-25 22:00 | XMS_ITS | Encounter Summary ---
Author Organization [facility] Address [address] [place] [address] Care Team Providers Care Faucets Assembler Name Role Phone Jerome Dunn MD Primary Care Provider Encounter Details Date Type Department Care Team (Late st Contact Info) Description 09/17/2005 Outpatient [facility] Internal Medicine [facility] [address] [place] [address] Jairon Blankenship MD [address] [place] [address] Social History Tobacco Use Types Packs/Day Years Used Date Smoking Tobacco: Never Assessed Comments Unknown Sex and Gender Information Value Date Recorded Sex Assigned at Not on file 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 Gender Identity Not on file Sexual Orientation Straight 04/11/2023 9: 46 PM CDT documented as of this encounter Last Filed Vital Signs Vital Sign Reading Time Taken Comments Blood Pressure 120/90 09/17/2005 1:00 PM CDT Pulse 80 09/17/2005 1:00 PM CDT Temperature 36.4 C (97.6 F) 09/17/2005 1:00 PM CDT Respiratory Rate 14 09/17/2005 1:00 PM CDT Oxygen Saturation - - Inhaled Oxygen Concentration - - Weight 106.1 kg (234 lb) 09/17/2005 1:00 PM CDT Height 163.8 cm (5' 4.5) 09/17/2005 1:00 PM CDT Body Mass Index 39.55 09/17/2005 1:00 PM CDT documented in this encounter Plan of Treatment Not on file documented as of this encounter Visit Diagnoses Not on filedocumented in this encounter Care Teams Faucets Assembler Relationship Specialty Start Date End Date Jerome Dunn MD [address] [place] [address] PCP - General Internal Medicine 10/30/20 documented as of this encounter
--- OUTSIDE RECORDS SUMMARY | 2025-04-25 22:00 | XMS_ITS | Clinical Summary ---
Author Organization [facility] Address [address] [place] [address] Care Team Providers Care Photogrammetric Technician Name Role Phone Jerome Dunn MD Primary Care Provider Bandar Ferrera MD Unavailable [phone] Allergies Active Allergy Reactions Criticality Noted Date Comments Lisinopril Cough Low Losartan Itching Low 07/06/2018 Oxycodone-Acetaminophen Agitation Low 01/08/2019 Omeprazole Rash Medium 03/09/2021 Tetanus Toxoid Swelling Medium Reaction: Swelling, Medications cholecalciferol (VITAMIN D-3) 1,000 unit Active cyanocobalamin (Vitamin B-12) 1,000 mcg tabletIndicatio ns:Prevention of Vitamin B12 Deficiency Take 1 tablet (1,000 mcg total) by mouth daily Active COVID vac 25-26,12up,,Mod ,,PF, (SPIKEVAX) 50 mcg/0.5 mL syringe Inject 0.5 mL into the muscle as instructed once for 1 dose 0.5 mL 5 03/29/20 25 Active Problems Problem Noted Date Diagnosed Date Laryngopharyngeal reflux (LPR) 06/09/2021 Dysphagia 06/09/2021 Globus sensation 06/09/2021 NEWTON (nonalcoholic steatohepatitis) 08/06/[address] scan, liver 03/24/2020 Left upper quadrant abdominal pain 03/03/2020 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 Overview (04/16/2019): Added automatically from request for surgery [id number] Foot drop, left 04/03/2019 Spinal stenosis, lumbar lisa on, with neurogenic claudication 02/15/2019 Overview (02/15/2019): Added automatically from request for surgery [id number] Lumbar radiculopathy 02/15/2019 Overview (02/15/2019): Added automatically from request for surgery [id number] Primary osteoarthritis of left knee 12/21/2018 Overview (12/21/2018): Added automatically from request for surgery [id number] Pure hypercholesterolemia 09/06/2018 B12 deficiency 09/06/2018 Vitamin D deficiency 09/06/2018 Leg weakness, bilateral 01/25/2018 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 woman previously with diabetes, with bilateral leg weakness that began as acute weakness in the spring, superimposed on mild paresthesias previously present in both legs. - Pain: low back pain with radiation to L leg: could represent herniated lumbosacral disk. I agree with MRI to check for this. Less likely is mononeuropathy as part of diabetic neuropathy. - Weakness: no appreciable change on exam. Main problem may be diabetic neuropathy currently. Dx for acute weakness remains possible GBS but the EMG findings argued against this and so I am not sure. I will refer to a neuromuscular colleague for further evaluation and management. - Falls: I counseled Ms. Verduzco on strategies to reduce her risk of falling. PLAN (phrased as addressed to the patient): - Your pain in your low back and left leg may be due to nerve compression by a disc in your spine. It may alternatively represent mononeuropathy from diabetes. - I agree with obtaining an MRI of your lumbosacral spine. Have this test's results sent to my office and call my office after you have had this test so I can review its results. - For the pain in your leg at night, we can try gabapentin 300 mg capsules, starting at 1 cap at bedtime for 3 days, then 1 cap 2x/day for 3 days, and then 1 cap 3x/day. - Look out for possible drowsiness. - I will refer you to a neuromuscular specialist to take over the care of your problem because such a specialist has greater experitse with your type of problem than I do. - I agree with physical therapy that you ave scheduled. I believe ankle foot orthotics may help your walking but I defer to the physical therapist to decide whether to recommend these. Essential hypertension, benign 08/20/2005 Resolved Problems Problem Noted Date Diagnosed Date Resolved Date DM (diabetes mellitus) type II controlled, neurological manifestation (CMS/[facility]) 09/29/201102/2022 Encounters Date Type Department Care Team Description 04/25/2025 10:00 AM THREAD REELER Home Care Visit [address] [address] [address] [place] [address] Suzi Bellamy OT OT REASSESSMENT 04/25/2025 Telephone [facility] [address] [place] [address] [place] [address] Jerome Dunn MD request for orders 04/24/2025 1:15 PM THREAD REELER Home Care Visit [address] [place] [address] Nancie Naranjo SLP CITY DISTRIBUTION CLERK HOME VISIT 04/23/2025 3:00 PM THREAD REELER Home Care Visit [address] [place] [address] Julia Barillas COTA OT HOME VISIT 04/23/2025 2:33 PM THREAD REELER - 04/23/2025 11:59 PM THREAD REELER Hospital Encounter [facility] [address] [place] [address] Discharge Disposition: Discharge to home or self care 04/23/2025 12:00 PM THREAD REELER Home Care Visit [address] [place] [address] Janet No, RN SN DISCIPLINE DISCHARGE 04/23/2025 11:00 AM THREAD REELER Home Care Visit [address] [place] [address] Ayse Daugherty, PT PT HOME VISIT 04/23/2025 Telephone [facility] [address] [place] [address] [address] [place] [address] Jerome Dunn MD Request For Order(s) 04/22/2025 Home Care Visit [address] [place] [address] Winifred Wiley RN SN TRIAGE ENCOUNTER 04/19/2025 3:00 PM THREAD REELER Home Care Visit [address] [place] [address] Ayse Daugherty, PT PT HOME VISIT 04/19/2025 1:00 PM THREAD REELER Home Care Visit [address] [place] [address] Julia Barillas COTA OT HOME VISIT 04/18/2025 3:30 PM THREAD REELER Home Care Visit [address] [place] [address] Janet No, ARMAAN SN HOME VISIT 04/17/2025 2:30 PM THREAD REELER Home Care Visit [address] [place] [address] Nancie Naranjo SLP CITY DISTRIBUTION CLERK HOME VISIT 04/17/2025 1:45 PM THREAD REELER Home Care Visit [address] [place] [address] Julia Barillas COTA OT HOME VISIT 04/16/2025 12:30 PM THREAD REELER Home Care Visit [address] [place] [address] Ayse Daugherty, PT PT HOME VISIT 04/15/2025 Home Care Visit [address] [place] [address] Winifred Wiley, RN SN TRIAGE ENCOUNTER 04/12/2025 3:00 PM CDT Home Care Visit [address] [place] [address] Jenise Moreno, PT PT HOME VISIT 04/11/2025 3:00 PM CDT Home Care Visit [address] [place] [address] Julia Barillas COTA OT HOME VISIT 04/10/2025 1:30 PM CDT Home Care Visit [address] [place] [address] Janet No, ARMAAN SN HOME VISIT 04/10/2025 11:30 AM CDT Home Care Visit [address] [place] [address] Nancie Naranjo SLP CITY DISTRIBUTION CLERK INITIAL EVALUATION 04/10/2025 Telephone [facility] [address] [place] [address] [place] [address] Jerome Dunn MD Spoke With Home Health Provider 04/09/2025 10:30 AM CDT Home Care Visit [address] [place] [address] Ayse Daugherty, PT PT INITIAL EVALUATION 04/08/2025 2:00 PM CDT Home Care Visit [address] [place] [address] Suzi Bellamy, OT OT HOME VISIT 04/08/2025 Home Care Visit [address] [place] [address] Janet No, RN CASE COMMUNICATION 04/08/2025 Home Care Visit [address] [place] [address] Ayse Daugherty, PT TELEPHONE ENCOUNTER 04/04/2025 2:00 PM CDT Home Care Visit [address] [place] [address] Suzi Bellamy, OT OT INITIAL EVALUATION 04/03/2025 1:00 PM CDT Home Care Visit [address] [place] [address] Janet No, RN SN OASIS START OF CARE 04/03/2025 Plan of Care Documentation [address] [address] [place] [address] 04/02/2025 Telephone [facility] [address] [place] [address] Dulce Vickers, RN 04/02/2025 Telephone [facility] [address] [place] [address] Dulce Vickers, RN 03/29/2025 2:35 PM CDT - 03/29/2025 11:59 PM CDT Hospital Encounter [facility] [address] [place] [address] NEWTON (nonalcoholic steatohepatitis) Discharge Disposition: Discharge to home or self care 03/29/2025 1:40 PM CDT Office Visit [facility] [address] [place] [address] Jerome Dunn MD Immunization due (Primary Dx); Essential hypertension, benign; Leg weakness, bilateral; Other polyneuropathy; Spinal stenosis, lumbar region, with neurogenic claudication; NEWTON (nonalcoholic steatohepatitis); Hepatic fibrosis, unspecified 03/29/2025 Results Follow-Up [facility] [address] [address] Jerome Dunn MD Basic metabolic panel from Last 3 Months Immunizations Immunization Administration Dates Next Due Hep A / Hep B 05/27/2021,12/26/2020,11/25/2020 Influenza, Quadrivalent, Rec ombinant, Egg Free, Preservative Free, Intramuscular 04/28/2020 Influenza, Quadrivalent, Spl it, Preservative Free, Intramuscular 04/18/2023,05/31/2022,04/03/2021 Influenza, Trivalent, Recomb inant, Egg Free, Preservative Free, Antibiotic Free, IM (FLUBLOK) 03/29/2025 Moderna SARS-CoV-2 Monovalen t Vaccination (12+ YRS) 07/10/2020 Pneumococcal Conjugate PCV 13 10/20/2016 Pneumococcal Polysaccharide PPV23 10/28/2010 RSV, Bivalent, Protein Subun it Rsvpref, Diluent (Abrysvo) 05/24/2023 Surgical History Surgery Date Site/Laterality Comments REPLACEMENT TOTAL KNEE Right TONSILLECTOMY CHOLECYSTECTOMY 06/13/1989 - 06/12/1990 BACK SURGERY Medical History Medical History Date Comments Guillain Coley syndrome Acquired right foot drop Type 2 diabetes mellitus Hypertension Hyperlipidemia Neuropathy Arthritis Cancer (HCC) Family History * Patient is adopted Medical History Relation Name Comments No Known Problems Father Relation Name Status Comments Father Social History Tobacco Use Types Packs/Day Years Used Date Smoking Tobacco: Never Smokeless Tobacco: Never Tobacco Cessation:Counseling Given: Yes Alcohol Use Standard Drinks/Week Comments Not Currently [...] on file Legal Sex Female 3:43 AM THREAD REELER Gender Identity Female 03/02/2021 12:42 PM CDT Sexual Orientation Straight 11/20/2018 1: 02 AM CDT Last Filed Vital Signs Vital Sign Reading Time Taken Comments Blood Pressure 132/68 04/25/2025 10:32 AM THREAD REELER Pulse 73 04/25/2025 10:32 AM THREAD REELER Temperature 36.4 C (97.5 F) 04/25/2025 10:32 AM THREAD REELER Respiratory Rate 18 04/25/2025 10:32 AM THREAD REELER Oxygen Saturation 96% 04/25/2025 10:32 AM THREAD REELER Inhaled Oxygen Concentration - - Weight 78 kg (172 lb) 04/03/2025 1:20 PM CDT Height 162.6 cm (5' 4) 04/03/2025 1:20 PM CDT Body Mass Index 29.52 04/03/2025 1:20 PM CDT Plan of Treatment Health Maintenance Due Date Last Done Comments Zoster Vaccine (1 of 2) 1993 Osteoporosis Screening-Bone Density Scan 11/11/2012 11/11/2010 Covid-19 Vaccine (2024-07 6 season) 2025 04/18/2024, 03/10/2023, 04/09/2022, Additional history exists Depression Screening 11/14/2025 11/14/2024, 11/16/2023, 04/22/2023, Additional history exists Fall Risk Assessment 11/14/2025 11/14/2024, 11/16/2023, 12/08/2022, Additional history exists Well Visit 65+ 11/14/2025 11/14/2024, 10/2023, 11/16/2023, Additional history exists Pneumococcal vaccine 65+ Completed 10/20/2016, 10/11 Influenza Vaccine Discontinued 03/29/2025, , 05/31/2022, Additional history exists DTaP/Tdap/Td Vaccine Discontinued Medical Devices Implanted Type Area Microbiology Soil Scientist Device Identifier Shelf Expiration Date Model / Serial / Lot Rt Total Knee Athroplasty Knee Procedures Procedure Name Priority Date/Time Associated Diagnosis Comments URINALYSIS AND REFLEX TO MICROSCOPIC AND CULTURE Routine 04/23/2025 12:30 PM THREAD REELER HEPATIC FUNCTION PANEL Routine 03/29/2025 2:35 PM CDT [place]WTON (nonalcoholic steatohepatitis) BASIC METABOLIC PANEL Routine 03/29/2025 2:06 PM CDT Essential hypertension, benign NEWTON (nonalcoholic steatohepatitis) from Last 3 Months Results * Urinalysis reflex to microscopic and culture Urine (04/23/2025 12:30 PM THREAD REELER) Color, ur Straw Yellow Clarity, ur Clear Clear [facility] Specific gravity, ur 1.011 1.003 - 1.[address] [facility] pH, urine 5.5 [facility] Comment: Interpretive Data U rine pH is affected by diet, medications, systemic acid-base disturbances, and renal tubular function. pH may affect urinary stone formation. For example, urine pH below 6.0 may help reduce the tendency for calcium phosphate stones and pH greater than 6.0 may reduce the tendency for uric acid stone formation. Source: [facility] Current Interpretive Data was last revised on 2017 Protein, ur ql Negative Negative [facility] Glucose, ur ql Negative Negative [facility] Ketones, ur Negative Negative [facility] Bilirubin, ur Negative Negative [facility] Blood, ur Negative Negative [facility] Urobilinogen, ur <2.0 <2.0 mg/dL [facility] Nitrite, ur Negative Negative [facility] Leukocyte esterase, ur Negative Negative [facility]A reflex comment Reflex conditions for microscopic UA and culture not met. [facility] Urine 04/23/2025 12:3 0 PM THREAD REELER 04/23/2025 4:27 PM THREAD REELER us Jerome Dunn MD LAB MICROBIOLOGY - GEN ERAL ORDERABLES Final Result Performing Organization Address [facility] Co de Phone Number [facility] Department [place] [address] * Hepatic function panel (03/29/2025 2:35 PM CDT) Pathologist [facility] Bilirubin, total 0.6 0.1 - 1.2 mg/dL Bilirubin, direct 0.2 0.1 - 0.3 mg/dL [facility] Protein, pl 7.7 6.5 - 8.5 g/dL [facility] Albumin 4.7 3.5 - 5.0 g/dL [facility] Alk phos 66 40 - 130 Units/L [facility] ALT 14 7 - 45 Units/L [facility] AST 22 10 - 45 Units/L [facility] Blood 03/29/2025 2:35 PM CDT 03/29/2025 7:55 PM CDT Jerome Dunn MD LAB BLOOD ORDERABLES F inal Result Performing Organization Address [facility] Co de Phone Number [facility] Department [place] [address] * (ABNORMAL) Basic metabolic panel (03/29/2025 2:06 PM CDT) Pathologist [facility] Glucose 93 74 - 200 mg/dL [facility] BUN 12(L) 18 - 23 mg/dL [facility] Creatinine 0.71 0.70 - 1.30 mg/dL [facility] BUN/Creat Ratio 17 Ratio [facility] Calcium 9.2 8.8 - 10.2 mg/dL [facility] Sodium 134(L) 135 - 145 mEq/L [facility] Potassium 4.2 3.5 - 5.1 mEq/L [facility] Chloride 100 98 - 107 mEq/L [facility] CO2 24.0 22.0 - 32.0 mEq/L [facility] Anion Gap 11 3 - 12 mEq/L [facility] eGFR 84.19 [facility] Blood 03/29/2025 2:06 PM CDT 03/29/2025 2:35 PM CDT Jerome Dunn MD LAB BLOOD ORDERABLES F inal Result [facility] [address] [place] [phone], [facility] from Last 3 Months Insurance MEDICARE [facility] MEDICARE SUPPLEMENT MEDICARE [employer] MEDICARE SUPPLEMENT [facility] MEDICARE [facility] MEDICARE [facility] MEDICARE SUPPLEMENT MEDICARE [facility] MEDICARE SUPPLEMENT Care Teams Photogrammetric Technician Relationship Specialty Start Date End Date Jerome Dunn MD PCP - General Internal Medicine 11/23/17 Bandar Ferrera MD Referring Physician Neurology 11/30/17
--- OUTSIDE RECORDS SUMMARY | 2025-04-25 22:00 | XMS_ITS | Encounter Summary ---
Author Organization [facility] Address [address] [place] [address] Care Team Providers Care Warehouse Receiving Clerk Name Role Phone Jerome Dunn MD Primary Care Provider Encounter Details Date Type Department Care Team (Latest Contact Info) Description 11/10/2007 Outpatient Historical [facility] Susu Stringer Other Screening Mammogram Social History Tobacco Use Types Packs/Day Years Used Date Smoking Tobacco: Never Assessed Comments Unknown Sex and Gender Information Value Date Recorded Sex Assigned at Not on file Legal Sex Female 2:57 AM ITEM PROCESSING CLERK Gender Identity Not on file Sexual Orientation Straight 04/11/2023 9: 46 PM CDT documented as of this encounter Plan of Treatment Not on file documented as of this encounter Procedures Procedure Name Priority Date/Time Associated Diagnosis Comments MAMMO SCREEN BILAT W OR WO CAD Routine 11/10/2007 9:46 AM CDT documented in this encounter Results * MAMMO DIGITAL SCREEN BILAT (11/10/2007 9:46 AM CDT) Anatomical Region Laterality Modality Breast Bilateral Other 11/10/2007 9:46 AM CDT Narrative 11/13/2007 9:37 AM CDT [address] [address] Admit Date: 11/10/2007 KAYLYN NASIR Sex: F Admit Prov: SUSU MULLINS Date: 1945 Primary Care Prov: SARAH ROMO CMRN: [id number] Room: BRENDANFarhat N: [id number] IMAGING SERVICES Ordering Prov: SUSU MULLINS Accession Number: [id number] Interpretation BILATERAL DIGITAL MAMMOGRAM WITH COMPUTER-ASSISTED DIAGNOSIS The breast parenchyma demonstrates fatty involution. There is no evidence of a dominant mass, malignant type calcification or other radiographic manifestation of malignancy. No change since 03/15. The CAD system was utilized. IMPRESSION No radiographic evidence of malignancy. Assessment BIRADS: 1-Negative Recommendation: Normal interval follow-up Dictated by: YAMILEX CASTANEDA Electronically signed by: YAMILEX CASTANEDA 11/13/2007 09:37 Transcribed: 11/13/2007 09:37 CO Procedure Note Yamilex Castaneda - 11/13/[address] [address] Admit Date: 11/10/2007 NASIR PATIÑO Sex: F Admit Prov: SUSU MULLINS Date:1945 Primary Care Prov: SARAH ROMO CMRN: [id number] Room: Farhat N: [id number] IMAGING SERVICES Ordering Prov: SUSU MULLINS Interpretation BILATERAL DIGITAL MAMMOGRAM WITH COMPUTER-ASSISTED DIAGNOSIS The breast parenchyma demonstrates fatty involution. There is noevidence of a dominant mass, malignant type calcification or otherradiographic manifestation of malignancy. No change since 03/15. The CAD system was utilized. IMPRESSION No radiographic evidence of malignancy. Assessment BIRADS: 1-Negative Recommendation: Normal interval follow-up Dictated by: YAMILEX CASTANEDA Electronically signed by: YAMILEX CASTANEDA 11/13/2007 09:37 Transcribed: 11/13/2007 09:37 CO Susu Guidodyana MAMMO ORDERABLES Final Result documented in this encounter Visit Diagnoses Diagnosis Other screening mammogram documented in this encounter Care Teams Warehouse Receiving Clerk Relationship Specialty Start Date End Date Jerome Dunn MD [address] [address] PCP - General Internal Medicine 10/30/20 documented as of this encounter
--- OUTSIDE RECORDS SUMMARY | 2025-04-25 22:00 | XMS_ITS | Encounter Summary ---
Author Organization [facility] Address [address] [place] [address] Care Team Providers Care Special Technical Operations Officer Name Role Phone Jerome Dunn MD Primary Care Provider Bandar Ferrera MD Unavailable Reason for Visit * Reason Onset Date Comments request for orders 04/25/2025 Encounter Details Date Type Department Care Team (Late st Contact Info) Description 04/25/2025 Telephone [facility] [address] [address] Jerome Dunn MD [address] [place] [address] [address] [place] [address] request for orders Social History Tobacco Use Types Packs/Day Years [...] on file Legal Sex Female 3:43 AM WEB PAGE DEVELOPER Gender Identity Female 03/02/2021 12:42 PM CDT Sexual Orientation Straight 11/20/2018 1: 02 AM CDT documented as of this encounter Functional Status * BP Location Answer Date of Assessment Author Left arm 04/25/2025 10:32 AM WEB PAGE DEVELOPER Suzi Bellamy OT * BP Location Answer Date of Assessment Author Left arm 04/25/2025 10:32 AM WEB PAGE DEVELOPER Suzi Bellamy OT documented as of this encounter Miscellaneous Notes * Telephone Encounter - Gianna Gallego CMA - 04/25/2025 11:09 AM CST Ot and hh aide visit 2 times a week for 3 weeks. Verbal was given [facility] PAGE DEVELOPER documented in this encounter Plan of Treatment Not on file documented as of this encounter Visit Diagnoses Not on filedocumented in this encounter Care Teams Special Technical Operations Officer Relationship Specialty Start Date End Date Jerome Dunn MD PCP - General Internal Medicine 11/23/17 Bandar Ferrera MD Referring Physician Neurology 11/30/17 documented as of this encounter
--- OUTSIDE RECORDS SUMMARY | 2025-04-25 22:00 | XMS_ITS | Encounter Summary ---
Author Organization [facility] Address [address] [place] [address] Care Team Providers Care Collection Systems Worker Name Role Phone Jerome Dunn MD Primary Care Provider Encounter Details Date Type Department Care Team (Late st Contact Info) Description 02/04/2005 Outpatient Historical [facility] [address] [facility] [place] [address] Ángel Concepcion MD [address] [place] [address] Social History Tobacco Use Types Packs/Day Years Used Date Smoking Tobacco: Never Assessed Comments Unknown Sex and Gender Information Value Date Recorded Sex Assigned at Not on file Legal Sex Female 2:57 AM TRIM CREW SUPERVISOR Gender Identity Not on file Sexual Orientation Straight 04/11/2023 9: 46 PM CDT documented as of this encounter Plan of Treatment Not on file documented as of this encounter Visit Diagnoses Not on filedocumented in this encounter Care Teams Collection Systems Worker Relationship Specialty Start Date End Date Jerome Dunn MD [address] [place] [address] PCP - General Internal Medicine 10/30/20 documented as of this encounter
--- OUTSIDE RECORDS SUMMARY | 2025-04-25 22:00 | XMS_ITS | Encounter Summary ---
Author Organization [facility] Address [address] [place] [address] Care Team Providers Care Attendant Child Activity Name Role Phone Jerome Dunn MD Primary Care Provider Encounter Details Date Type Department Care Team (Latest Contact Info) Description 02/26/2008 Outpatient Historical [facility] [address] [place] [address] [address] [place] [address] Jairon Blankenship MD [address] [place] [address] Essential Hypertension, Benign Social History Tobacco Use Types Packs/Day Years Used Date Smoking Tobacco: Never Alcohol Use Standard Drinks/Week Comments Yes 0 (1 standard drink = 0.6 oz pur e alcohol) Comments No Sex and Gender Information Value Date Recorded Sex Assigned at Not on file Legal Sex Female 2:57 AM MARKETING ANALYST Gender Identity Not on file Sexual Orientation Straight 04/11/2023 9: 46 PM CDT documented as of this encounter Plan of Treatment Not on file documented as of this encounter Visit Diagnoses Diagnosis Essential hypertension, benign documented in this encounter Care Teams Attendant Child Activity Relationship Specialty Start Date End Date Jerome Dunn MD [address] [place] [address] PCP - General Internal Medicine 10/30/20 documented as of this encounter
--- OUTSIDE RECORDS SUMMARY | 2025-04-25 22:00 | XMS_ITS | Patient Health Record ---
Author Organization [employer] Address [address] [address] [place] [address] Care Team Providers Care Telecommunication Operator Name Role Phone Shaun KEANE, Jerome Primary Care Provider Unavaila ble Reason For Referral No Information Problems Problem Type SNOMED Code ICD Code Onset Dates Problem Status W/U Status Risk Notes Problem History of polyp of colon (situation) (994118020) Personal history of colonic polyps (Z86.010) Active confirmed Problem Diverticular disease of colon (227058281) Colonic diverticular disease (K57.30) Active confirmed Plan Of Treatment No Information Insurance Providers Payer Name Payer Address Payer Phone Subscriber Number Group Number Insured Name Patient Relationship to Insured Coverage Start Date Coverage End Date Medicare E2 [address] [address] [place] [address] [id number] Jayla kinseyJusta Self - patient is the insured [place] [employer] [place] Life Supplement [id number] [employer] [facility] [place] [address] [id number] F Anuj-nadine kinseyJusta Self - patient is the insured 5
--- OUTSIDE RECORDS SUMMARY | 2025-04-25 22:00 | XMS_ITS | Encounter Summary ---
Author Organization [facility] Address [address] [place] [address] Care Team Providers Care Printed Circuit Board Designer Name Role Phone Jerome Dunn MD Primary Care Provider Encounter Details Date Type Department Care Team (Latest Contact Info) Description 11/04/2004 Outpatient Historical [facility] Susu Stringer SCREENING MAMM-MAILG NEOPL-OTHER (Primary Dx) Social History Tobacco Use Types Packs/Day Years Used Date Smoking Tobacco: Never Assessed Comments Unknown Sex and Gender Information Value Date Recorded Sex Assigned at Not on file Legal Sex Female 2:57 AM LAWN MOWER Gender Identity Not on file Sexual Orientation Straight 04/11/2023 9: 46 PM CDT documented as of this encounter Plan of Treatment Not on file documented as of this encounter Visit Diagnoses Diagnosis Other screening mammogram- Primary documented in this encounter Care Teams Printed Circuit Board Designer Relationship Specialty Start Date End Date Jerome Dunn MD [address] [address] PCP - General Internal Medicine 10/30/20 documented as of this encounter
--- OUTSIDE RECORDS SUMMARY | 2025-04-25 22:00 | XMS_ITS | Encounter Summary ---
Author Organization [facility] Address [address] [place] [address] Care Team Providers Care Economic Adviser Name Role Phone Jerome Dunn MD Primary Care Provider Encounter Details Date Type Department Care Team (Latest Contact Info) Description 08/10/2006 Outpatient Historical [facility] Susu Felder Postmenopausal Bleeding (Primary Dx) Social History Tobacco Use Types Packs/Day Years Used Date Smoking Tobacco: Never Assessed Comments Unknown Sex and Gender Information Value Date Recorded Sex Assigned at Not on file Legal Sex Female 2:57 AM ATHLETIC TURF WORKER Gender Identity Not on file Sexual Orientation Straight 04/11/2023 9: 46 PM CDT documented as of this encounter Plan of Treatment Not on file documented as of this encounter Procedures Procedure Name Priority Date/Time Associated Diagnosis Comments POC GLUCOSE Routine 08/10/2006 7:46 AM ATHLETIC TURF WORKER HEMOGLOBIN AND HEMATOCRIT Routine 08/09/2006 9:22 AM ATHLETIC TURF WORKER BASIC METABOLIC PANEL Routine 08/09/2006 9:22 AM ATHLETIC TURF WORKER documented in this encounter Results * (ABNORMAL) POC GLUCOSE (08/10/2006 7:46 AM ATHLETIC TURF WORKER) GLUCOSE POC 174(H) 65 - 99 mg/dL INTERFACE SYSTEM 08/10/2006 7:46 AM ATHLETIC TURF WORKER us [employer] POINT OF CARE TESTING Edited Performing Organization Address [facility] de Phone Number INTERFACE SYSTEM Refer to clinic/hospital department * HEMOGLOBIN AND HEMATOCRIT (08/09/2006 9:22 AM ATHLETIC TURF WORKER) HEMOGLOBIN 13.3 11.8 - 14.8 g/dL INTERFACE SYSTEM HEMATOCRIT 39.0 35.5 - 44.0 % INTERFACE SYSTEM 08/09/2006 9:22 AM ATHLETIC TURF WORKER us Susu Felder HEMATOLOGY ORDERABLES Edited Performing Organization Address [facility] Phone Number INTERFACE SYSTEM Refer to clinic/hospital department * (ABNORMAL) BASIC METABOLIC PANEL (08/09/2006 9:22 AM ATHLETIC TURF WORKER) GLUCOSE 170(H) 65 - 99 mg/dL INTERFACE SYSTEM CREATININE 1.09(H) 0.51 - 0.95 mg/dL INTERFACE SYSTEM CALCIUM 9.2 8.4 - 10.2 mg/dL INTERFACE SYSTEM BUN 20 6 - 20 mg/dL INTERFACE SYSTEM SODIUM 140 135 - 145 mmol/L INTERFACE SYSTEM POTASSIUM 4.8 3.5 - 4.9 mmol/L INTERFACE SYSTEM CHLORIDE 106 96 - 108 mmol/L INTERFACE SYSTEM CO2 26 22 - 30 mmol/L INTERFACE SYSTEM GFR, >60 >=60 mL/min/1. 7 sq meter INTERFACE SYSTEM GFR 51(L) >=60 mL/min/1. 7 sq meter INTERFACE SYSTEM Comment: Estimated GFR rate interpretative information for both Americans and non- Americans is available on the [facility] Intranet at: [email or web address] Select: Lab Policies and Procedures Select: Reference Ranges - GFR 08/09/2006 9:22 AM ATHLETIC TURF WORKER Susu Felder CHEMISTRY ORDERABLES Edited Performing Organization Address [facility] Co de Phone Number INTERFACE SYSTEM Refer to clinic/hospital department documented in this encounter Visit Diagnoses Diagnosis Postmenopausal bleeding- Primary documented in this encounter Care Teams Economic Adviser Relationship Specialty Start Date End Date Jerome Dunn MD [address] [place] [address] PCP - General Internal Medicine 10/30/20 documented as of this encounter
--- OUTSIDE RECORDS SUMMARY | 2025-04-25 22:00 | XMS_ITS | Encounter Summary ---
Author Organization [facility] Address [address] [place] [address] Care Team Providers Care Assistant Professor Of Nursing Name Role Phone Jerome Dunn MD Primary Care Provider Encounter Details Date Type Department Care Team (Latest Contact Info) Description 12/03/[address] [facility] Internal Medicine [facility] [address] [place] [address] Jairon Blankenship MD [address] [place] [address] DM w/o Complication Type II, Uncontrolled (Primary Dx) Social History Tobacco Use Types Packs/Day Years Used Date Smoking Tobacco: Never Assessed Comments Unknown Sex and Gender Information Value Date Recorded Sex Assigned at Not on file Legal Sex Female 2:57 AM MOTION STUDY ANALYST Gender Identity Not on file Sexual Orientation Straight 04/11/2023 9: 46 PM CDT documented as of this encounter Plan of Treatment Not on file documented as of this encounter Procedures Procedure Name Priority Date/Time Associated Diagnosis Comments MICROALBUMIN/CREATIN INE RATIO, RANDOM UR Routine 12/03/2005 10:01 AM CDT ALT Routine 12/03/2005 10:01 AM CDT TSH Routine 12/03/2005 10:01 AM CDT HEMOGLOBIN A1C Routine 12/03/2005 10:01 AM CDT LIPID PANEL Routine 12/03/2005 10:01 AM CDT documented in this encounter Results * MICROALBUMIN/CREATININE RATIO, RANDOM UR (12/03/2005 10:01 AM CDT) MICROALBUMIN/C REAT RATIO, UR 15 0 - 29 mg/g creatinine INTERFACE SYSTEM 12/03/2005 10:0 1 AM CDT Jairon Blankenship MD URINE ORDERABLES Final Result Performing Organization Address [facility] Phone Number INTERFACE SYSTEM Refer to clinic/hospital department * (ABNORMAL) HEMOGLOBIN A1C (12/03/2005 10:01 AM CDT) HEMOGLOBIN A1C 6.4(H) 3.9 - 6.1 % of Hgb INTERFACE SYSTEM GLUCOSE, MEAN BLOOD 127 mg/dL INTERFACE SYSTEM 12/03/2005 10:0 1 AM CDT Jairon Blankenship MD CHEMISTRY ORDERABLES Final Res ult Performing Organization Address [facility] Number INTERFACE SYSTEM Refer to clinic/hospital department * TSH (12/03/2005 10:01 AM CDT) TSH 2.02 0.27 - 4.20 uU/mL INTERFACE SYSTEM 12/03/2005 10:0 1 AM CDT Jairon Blankenship MD CHEMISTRY ORDERABLES Final Res ult Performing Organization Address [facility] de Phone Number INTERFACE SYSTEM Refer to clinic/hospital department * ALT (12/03/2005 10:01 AM CDT) ALT 22 0 - 31 U/L INTERFACE SYSTEM 12/03/2005 10:0 1 AM CDT Jairon Blankenship MD CHEMISTRY ORDERABLES Final Res ult Performing Organization Address [facility]/ZIP Co de Phone Number INTERFACE SYSTEM Refer to clinic/hospital department * (ABNORMAL) LIPID PANEL (12/03/2005 10:01 AM CDT) CHOLESTEROL 213(H) 100 - 199 mg/dL INTERFACE SYSTEM TRIGLYCERIDE 133 10 - 149 mg/dL INTERFACE SYSTEM HDL 57 40 - 59 mg/dL INTERFACE SYSTEM CHOL/HDL RATIO 3.7 2.0 - 5.0 INTER FACE SYSTEM LDL CALCULATED 129(H) <=99 mg/dL INTERFACE SYSTEM LIPID PANEL COMMENT See Below INTERFACE SYSTEM Comment: The adult ATP and pediatric NCEP classifications for lipids are available on the [facility] Intranet at: [email or web address] Select: Lab Policies and Procedures Select: Reference Ranges - Lipids 12/03/2005 10:0 1 AM CDT us Jairon Blankenship MD CHEMISTRY ORDERABLES Final Res ult Performing Organization Address [facility] de Phone Number INTERFACE SYSTEM Refer to clinic/hospital department documented in this encounter Visit Diagnoses Diagnosis Type II or unspecified type diabetes mellitus without mention of complication, uncontrolled- Primary documented in this encounter Care Teams Assistant Professor Of Nursing Relationship Specialty Start Date End Date Jerome Dunn MD [address] [address] PCP - General Internal Medicine 10/30/20 documented as of this encounter
--- OUTSIDE RECORDS SUMMARY | 2025-04-25 22:00 | XMS_ITS | Encounter Summary ---
Author Organization [facility] Address 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
--- OUTSIDE RECORDS SUMMARY | 2025-04-25 22:00 | XMS_ITS | Encounter Summary ---
Author Organization [facility] Address [address] [place] [address] Care Team Providers Care Food Checker Name Role Phone Jerome Dunn MD Primary Care Provider Encounter Details Date Type Department Care Team (Late st Contact Info) Description 12/04/2008 Outpatient Historical [facility] Rubi Roblero MD NO ADDRESS ON FILE Pain in Soft Tissues of Limb Social History Tobacco Use Types Packs/Day Years Used Date Smoking Tobacco: Never Alcohol Use Standard Drinks/Week Comments Yes 0 (1 standard drink = 0.6 oz pur e alcohol) Comments No Sex and Gender Information Value Date Recorded Sex Assigned at Not on file Legal Sex Female 2:57 AM WATER PLUMBER Gender Identity Not on file Sexual Orientation Straight 04/11/2023 9: 46 PM CDT documented as of this encounter Plan of Treatment Not on file documented as of this encounter Visit Diagnoses Diagnosis Pain in limb documented in this encounter Care Teams Food Checker Relationship Specialty Start Date End Date Jerome Dunn MD [address] [place] [address] PCP - General Internal Medicine 10/30/20 documented as of this encounter
--- OUTSIDE RECORDS SUMMARY | 2025-04-25 22:00 | XMS_ITS | Encounter Summary ---
Author Organization [facility] Address [address] [place] [address] Care Team Providers Care Instrumentation Instructor Name Role Phone Jerome Dunn MD Primary Care Provider Encounter Details Date Type Department Care Team (Late st Contact Info) Description 08/20/2005 Outpatient [facility] Internal Medicine [facility] [address] [place] [address] Jairon Blankenship MD [address] [place] [address] Social History Tobacco Use Types Packs/Day Years Used Date Smoking Tobacco: Never Assessed Comments Unknown Sex and Gender Information Value Date Recorded Sex Assigned at Not on file Legal Sex Female 2:57 AM GAS PUMP ATTENDANT Gender Identity Not on file Sexual Orientation Straight 04/11/2023 9: 46 PM CDT documented as of this encounter Last Filed Vital Signs Vital Sign Reading Time Taken Comments Blood Pressure 174/100 08/20/2005 1:00 PM GAS PUMP ATTENDANT Pulse 84 08/20/2005 1:00 PM GAS PUMP ATTENDANT Temperature 37.2 C (98.9 F) 08/20/2005 1:00 PM GAS PUMP ATTENDANT Respiratory Rate 20 08/20/2005 1:00 PM GAS PUMP ATTENDANT Oxygen Saturation - - Inhaled Oxygen Concentration - - Weight 107.5 kg (237 lb) 08/20/2005 1:00 PM GAS PUMP ATTENDANT Height 166.4 cm (5' 5.5) 08/20/2005 1:00 PM GAS PUMP ATTENDANT Body Mass Index 38.84 08/20/2005 1:00 PM GAS PUMP ATTENDANT documented in this encounter Plan of Treatment Not on file documented as of this encounter Visit Diagnoses Not on filedocumented in this encounter Care Teams Instrumentation Instructor Relationship Specialty Start Date End Date Jerome Dunn MD [address] [place] [address] PCP - General Internal Medicine 10/30/20 documented as of this encounter
--- OUTSIDE RECORDS SUMMARY | 2025-04-25 22:00 | XMS_ITS | Encounter Summary ---
Author Organization [facility] Address 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 Gender Identity Not on file Sexual Orientation Straight 04/11/2023 9: 46 PM CDT documented as of this encounter Plan of Treatment Not on file documented as of this encounter Procedures Procedure Name Priority Date/Time Associated Diagnosis Comments POC GLUCOSE Routine 10/10/2006 9:19 AM CDT documented in this encounter Results * (ABNORMAL) POC GLUCOSE (10/10/2006 9:19 AM CDT) GLUCOSE POC 206(H) 65 - 99 mg/dL INTERFACE SYSTEM 10/10/2006 9:19 AM CDT us Cristian Terry MD POINT OF CARE TEST ING Edited INTERFACE SYSTEM Refer to clinic/hospital department documented in this encounter Visit Diagnoses Diagnosis Special screening for malignant neoplasms, colon- Primary documented in this encounter Care Teams Safety Physician Relationship Specialty Start Date End Date Jerome Dunn MD [address] [place] [address] PCP - General Internal Medicine 10/30/20 documented as of this encounter
--- OUTSIDE RECORDS SUMMARY | 2025-04-25 22:00 | XMS_ITS | Encounter Summary ---
Author Organization [facility] Address [address] [place] [address] Care Team Providers Care Building Architectural Designer Name Role Phone Jerome Dunn MD Primary Care Provider Encounter Details Date Type Department Care Team (Late st Contact Info) Description 10/04/2008 Outpatient Historical [facility] Rubi Guzman MD NO ADDRESS ON FILE Lumbago Social History Tobacco Use Types Packs/Day Years Used Date Smoking Tobacco: Never Alcohol Use Standard Drinks/Week Comments Yes 0 (1 standard drink = 0.6 oz pur e alcohol) Comments No Sex and Gender Information Value Date Recorded Sex Assigned at Not on file Legal Sex Female 2:57 AM QUANTITATIVE RESEARCH ANALYST Gender Identity Not on file Sexual Orientation Straight 04/11/2023 9: 46 PM CDT documented as of this encounter Plan of Treatment Not on file documented as of this encounter Visit Diagnoses Diagnosis Lumbago documented in this encounter Care Teams Building Architectural Designer Relationship Specialty Start Date End Date Jerome Dunn MD [address] [place] [address] PCP - General Internal Medicine 10/30/20 documented as of this encounter
--- OUTSIDE RECORDS SUMMARY | 2025-04-25 22:00 | XMS_ITS | Encounter Summary ---
Author Organization [facility] Address [address] [place] [address] Care Team Providers Care Pantograph Machine Operator Name Role Phone Jerome Dunn MD Primary Care Provider Encounter Details Date Type Department Care Team (Latest Contact Info) Description 02/04/2005 Outpatient Historical [facility] Susu Felder POSTMENOPAUSAL BLEEDING (Primary Dx) Social History Tobacco Use Types Packs/Day Years Used Date Smoking Tobacco: Never Assessed Comments Unknown Sex and Gender Information Value Date Recorded Sex Assigned at Not on file Legal Sex Female 2:57 AM FUNERAL DIRECTOR/EMBALMER Gender Identity Not on file Sexual Orientation Straight 04/11/2023 9: 46 PM CDT documented as of this encounter Plan of Treatment Not on file documented as of this encounter Procedures Procedure Name Priority Date/Time Associated Diagnosis Comments HEMOGLOBIN AND HEMATOCRIT Routine 02/04/2005 8:06 AM CDT BASIC METABOLIC PANEL Routine 02/04/2005 8:06 AM CDT documented in this encounter Results * HEMOGLOBIN AND HEMATOCRIT (02/04/2005 8:06 AM CDT) HEMOGLOBIN 12.9 11.8 - 14.8 g/dL INTERFACE SYSTEM HEMATOCRIT 38.9 35.5 - 44.0 % INTERFACE SYSTEM 02/04/2005 8:06 AM CDT us Susu Felder HEMATOLOGY ORDERABLES Final Res ult Performing Organization Address City/[facility]/ZIP Co de Phone Number INTERFACE SYSTEM Refer to clinic/hospital department * (ABNORMAL) BASIC METABOLIC PANEL (02/04/2005 8:06 AM CDT) GLUCOSE 142(H) 65 - 109 mg/dL INTERFACE SYSTEM CREATININE 0.9 0.4 - 1.2 mg/dL INTERFACE SYSTEM CALCIUM 9.7 8.6 - 10.2 mg/dL INTERFACE SYSTEM BUN 13 6 - 20 mg/dL INTERFACE SYSTEM SODIUM 142 135 - 145 mmol/L INTERFACE SYSTEM POTASSIUM 4.6 3.5 - 4.9 mmol/L INTERFACE SYSTEM CHLORIDE 106 96 - 108 mmol/L INTERFACE SYSTEM CO2 29 22 - 30 mmol/L INTERFACE SYSTEM 02/04/2005 8:06 AM CDT us Susu Felder CHEMISTRY ORDERABLES Final Resu lt Performing Organization Address [facility] Co de Phone Number INTERFACE SYSTEM Refer to clinic/hospital department documented in this encounter Visit Diagnoses Diagnosis Postmenopausal bleeding- Primary documented in this encounter Care Teams Pantograph Machine Operator Relationship Specialty Start Date End Date Jerome Dunn MD [address] [place] [address] PCP - General Internal Medicine 10/30/20 documented as of this encounter
--- OUTSIDE RECORDS SUMMARY | 2025-04-25 22:00 | XMS_ITS | Clinical Summary ---
Author Organization [facility] Ben eason Blessing Address [address] [place] [address] Phone Care Team Providers Care Venetian Blind Washer Name Role Phone Unavailable Primary Care Provider Unavailabl e Allergies No known active allergies Medications OTHERIndications :Acute low back pain Take 5 mg by mouth daily at bedtime. medprox Active GLUCOPHAGE 1,000 mg Oral TabIndications:A cute low back pain Take 1,000 mg by mouth 2 times daily with meals. Active VITAMIN B COMPLEX POIndications:Ac capitan grande low back pain Take 1 Tab by mouth daily. Active ASPIRIN 81 mg Oral TabIndications:A cute low back pain Take 81 mg by mouth daily. Active GLUCOSAMINE CHONDROITIN MAXSTR 500-400 mg Oral CapIndications:A cute low back pain Take 2 Tabs by mouth daily. Active tramadol (ULTRAM) 50 mg Oral TabIndications:A cute low back pain Take 1 Tab by mouth every 6 hours as needed for Pain. take every 6-8 hours as needed for pain 30 Tab 0 06/20/2008 Active cyclobenzaprine (FLEXERIL) 10 mg Oral TabIndications:A cute low back pain Take 1 Tab by mouth 3 times daily as needed for Spasm. take 1/2-1 every 8 hours prn muscle spasms 30 Tab 0 06/20/2008 Active ibuprofen (MOTRIN) 600 mg Oral TabIndications:A cute low back pain Take 1 Tab by mouth every 6 hours as needed for Pain. take as needed for back pain 60 Tab 0 06/20/2008 Active Active Problems No known active problems Family History * Patient is adopted Relation Name Status Comments Father Mother Social History Tobacco Use Types Packs/Day Years Used Date Smoking Tobacco: Never Alcohol Use Standard Drinks/Week Comments Yes 0.8 (1 standard drink = 0.6 oz p ure alcohol) Comments No Sex and Gender Information Value Date Recorded Sex Assigned at Not on file Legal Sex Female 7:[address] ENG[address]ERING TECHNICIAN Gender Identity Not on file Sexual Orientation Not on file Last Filed Vital Signs Vital Sign Reading Time Taken Comments Blood Pressure 138/88 06/20/2008 7:[address] ENGINEERING TECHNICIAN Pulse 106 06/20/2008 5:[address] ENGINEERING TECHNICIAN Temperature 36.8 C (98.2 F) 06/20/2008 5:[address] ENGINEERING TECHNICIAN Respiratory Rate 18 06/20/2008 5:[address] ENGINEERING TECHNICIAN Oxygen Saturation 96% 06/20/2008 5:[address] ENGINEERING TECHNICIAN Inhaled Oxygen Concentration - - Weight 97.5 kg (215 lb) 06/20/2008 5:[address] ENGINEERING TECHNICIAN Height - - Body Mass Index - - Plan of Treatment Health Maintenance Due Date Last Done Comments DTAP/TDAP/TD VACCINES (1 - Tdap) 1962 PNEUMOCOCCAL VACCINE 50+ YEARS (1 of 1 - PCV) 04/26/19 93 ZOSTER VACCINE (1 of 2) 1993 OSTEOPOROSIS SCREENING 2008 RSV VACCINE (60+ or ) (1 - 1-dose 75+ series) 2018 INFLUENZA VACCINE (#1) 2025 [employer]
--- OUTSIDE RECORDS SUMMARY | 2025-04-25 22:00 | XMS_ITS | Encounter Summary ---
Author Organization [facility] Address [address] [place] [address] Care Team Providers Care Infrastructure Director Name Role Phone Jerome Dunn MD Primary Care Provider Encounter Details Date Type Department Care Team (Late st Contact Info) Description 08/09/2006 Outpatient Historical [facility] Support [facility]. ([facility] Cardiology[facility]) [address] [place] [phone] Tamra New MD Social History Tobacco Use Types Packs/Day Years Used Date Smoking Tobacco: Never Assessed Comments Unknown Sex and Gender Information Value Date Recorded Sex Assigned at Not on file Legal Sex Female 2:57 AM OPERATIVE SUPERVISOR Gender Identity Not on file Sexual Orientation Straight 04/11/2023 9: 46 PM CDT documented as of this encounter Plan of Treatment Not on file documented as of this encounter Visit Diagnoses Not on filedocumented in this encounter Care Teams Infrastructure Director Relationship Specialty Start Date End Date Jerome Dunn MD [address] [place] [phone] PCP - General Internal Medicine 10/30/20 documented as of this encounter
--- OUTSIDE RECORDS SUMMARY | 2025-04-25 22:00 | XMS_ITS | Encounter Summary ---
Author Organization [employer] Address [address] [place] [address] Care Team Providers Care Condenser Tube Tender Name Role Phone Jerome Dunn MD Primary Care Provider Encounter Details Date Type Department Care Team (Latest Contact Info) Description 07/31/2007 Outpatient [facility] [address] [facility] [place] [address] [place] [address] Scot Morales, DPM [address] [place] [address] Achilles Bursitis or Tendinitis Social History Tobacco Use Types Packs/Day Years Used Date Smoking Tobacco: Never Assessed Comments Unknown Sex and Gender Information Value Date Recorded Sex Assigned at Not on file Legal Sex Female 2:57 AM PRECISION MECHANICAL INSTRUMENT MAKER Gender Identity Not on file Sexual Orientation Straight 04/11/2023 9: 46 PM CDT documented as of this encounter Plan of Treatment Not on file documented as of this encounter Procedures Procedure Name Priority Date/Time Associated Diagnosis Comments MRI ANKLE WO CONTRAST RIGHT Timed Study 07/31/2007 11:56 AM PRECISION MECHANICAL INSTRUMENT MAKER documented in this encounter Results * MRI ANKLE WO CONTRAST RIGHT (07/31/2007 11:56 AM PRECISION MECHANICAL INSTRUMENT MAKER) Anatomical Region Laterality Modality Ankle / Foot Other 07/31/2007 11:5 6 AM PRECISION MECHANICAL INSTRUMENT MAKER Narrative 07/31/2007 3:19 PM PRECISION MECHANICAL INSTRUMENT MAKER [facility] [address] [place], [place] [address] Admit Date: 07/31/2007 NASIR PATIÑO Sex: F Admit Prov: SCOT MORALES Date: 1945 Primary Care Prov: LYNNE CLIFTON CMRN: [id number] Room: [facility] SSN: [id number] IMAGING SERVICES Ordering Prov: N/A Accession Number: [id number] Interpretation Exam: MRI right ankle without contrast 07/31/2007 Indication: Posterior heel pain, Achilles pain, evaluate for Mireya's deformity Findings: There is thickening of the distal Achilles tendon with abnormal areas of high T2 signal centrally in the tendon and posteriorly suggesting chronic tendinosis and low-grade partial thickness tearing. There is a mild fluid distention of the retro-Achilles bursa at the corner of the posterior superior calcaneus and Achilles attachment. There is also irregular edema in the superficial Achilles bursa posterior to the Achilles. This triad makes up the typical findings of Mireya's deformity. However, in this case there is also a moderate amount of marrow edema in the lateral aspect of the posterior half of the calcaneus and there is periosteal edema of the lateral cortex. A linear fracture or cortical step-off is not visualized, but the findings are suspicious for stress fracture. Peroneus brevis and longus tendons as well as the medial flexor tendons at the ankle are normal. 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 In addition, there is a marrow edema in the lateral and posterior calcaneus mostly beneath the lateral cortex as well as periosteal edema concerning for early stress fracture. . Dictated by: ERIC RANDHAWA 07/31/2007 14:50 Electronically signed by: ERIC RANDHAWA 07/31/2007 15:19 Transcribed: 07/31/2007 14:56 AMK Procedure Note Eric Randhawa - 07/31/2007 [facility] [address] [place], [place] [address] Admit Date: 07/31/2007 NASIR PATIÑO Sex: F Admit Prov: SCOT MORALES Date:1945 Primary Care Prov: LYNNE CLIFTON CMRN: [id number] Room: [facility] SSN: [id number] IMAGING SERVICES Ordering Prov: N/A Interpretation Exam: MRI right ankle without contrast 07/31/2007 Indication: Posterior heel pain, Achilles pain, evaluate forHaglund's deformity Findings: There is thickening of the distal Achilles tendon with abnormal areasof high T2 signal centrally in the tendon and posteriorly suggestingchronic tendinosis and low-grade partial thickness tearing. There is a mildfluid distention of the retro-Achilles bursa at the corner of theposterior superior calcaneus and Achilles attachment. There is also irregularedema in the superficial Achilles bursa posterior to the Achilles. Thistriad makes up the typical findings of Mireya's deformity. However, inthis case there is also a moderate amount of marrow edema in the lateral aspectof the posterior half of the calcaneus and there is periosteal edema ofthe lateral cortex. A linear fracture or cortical step-off is notvisualized, but the findings are suspicious for stress fracture. Peroneus brevisand longus tendons as well as the medial flexor tendons at the ankleare normal. Impression: Findings consistent with Mireya's deformity including aretro-Achilles bursa and superficial Achilles bursa inflammation as well aschronic tendinosis and low-grade partial thickness tearing of the Achillestendon. In addition, there is a marrow edema in the lateral and posteriorcalcaneus mostly beneath the lateral cortex as well as periosteal edemaconcerning for early stress fracture. . Dictated by: ERIC RANDHAWA 07/31/2007 14:50 Electronically signed by: ERIC RANDHAWA 07/31/2007 15:19 Transcribed: 07/31/2007 14:56 AMK Scot Morales DPM MR ORDERABLES Final Result documented in this encounter Visit Diagnoses Diagnosis Achilles bursitis or tendinitis documented in this encounter Care Teams Condenser Tube Tender Relationship Specialty Start Date End Date Jerome Dunn MD [address] [place] [phone] PCP - General Internal Medicine 10/30/20 documented as of this encounter
--- OUTSIDE RECORDS SUMMARY | 2025-04-25 22:00 | XMS_ITS | Encounter Summary ---
Author Organization [facility] Address [address] [place] [address] Care Team Providers Care American History Teacher Name Role Phone Jerome Dunn MD Primary Care Provider Encounter Details Date Type Department Care Team (Late st Contact Info) Description 09/30/2006 Outpatient [facility] Internal Medicine [facility] [address] [place] [address] Bere arizmendi, MD Rubi Social History Tobacco Use Types Packs/Day Years Used Date Smoking Tobacco: Never Assessed Comments Unknown Sex and Gender Information Value Date Recorded Sex Assigned at Not on file Legal Sex Female 2:57 AM CREATIVE RESOURCE 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 Gender Identity Not on file Sexual Orientation Straight 04/11/2023 9: 46 PM CDT documented as of this encounter Last Filed Vital Signs Vital Sign Reading Time Taken Comments Blood Pressure 140/84 09/30/2006 9:30 AM CDT Pulse 78 09/30/2006 9:30 AM CDT Temperature 36.8 C (98.2 F) 09/30/2006 9:30 AM CDT Respiratory Rate 22 09/30/2006 9:30 AM CDT Oxygen Saturation - - Inhaled Oxygen Concentration - - Weight 106.6 kg (235 lb) 09/30/2006 9:30 AM CDT Height 163.8 cm (5' 4.5) 09/30/2006 9:30 AM CDT Body Mass Index 39.71 09/30/2006 9:30 AM CDT documented in this encounter Plan of Treatment Not on file documented as of this encounter Visit Diagnoses Not on filedocumented in this encounter Care Teams American History Teacher Relationship Specialty Start Date End Date Jerome Dunn MD [address] [place] [address] PCP - General Internal Medicine 10/30/20 documented as of this encounter
--- OUTSIDE RECORDS SUMMARY | 2025-04-25 22:00 | XMS_ITS | Encounter Summary ---
Author Organization [facility] Address [address] [place] [address] Care Team Providers Care Child Care Aide Name Role Phone Jerome Dunn MD Primary Care Provider Encounter Details Date Type Department Care Team (Latest Contact Info) Description 02/13/2008 Outpatient Historical [facility] Jairon Reyna MD [address] [place] [phone] DM w/o Complication Type II, Uncontrolled Social History Tobacco Use Types Packs/Day Years Used Date Smoking Tobacco: Never Alcohol Use Standard Drinks/Week Comments Yes 0 (1 standard drink = 0.6 oz pur e alcohol) Comments No Sex and Gender Information Value Date Recorded Sex Assigned at Not on file Legal Sex Female 2:57 AM TURNER IN Gender Identity Not on file Sexual Orientation Straight 04/11/2023 9: 46 PM CDT documented as of this encounter Plan of Treatment Not on file documented as of this encounter Visit Diagnoses Diagnosis Type II or unspecified type diabetes mellitus without mention of complication, uncontrolled documented in this encounter Care Teams Child Care Aide Relationship Specialty Start Date End Date Jerome Dunn MD [address] [place] [phone] PCP - General Internal Medicine 10/30/20 documented as of this encounter
--- OUTSIDE RECORDS SUMMARY | 2025-04-25 22:00 | XMS_ITS | Encounter Summary ---
Author Organization [facility] Address 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) Social History Tobacco Use Types Packs/Day Years Used Date Smoking Tobacco: Never Alcohol Use Standard Drinks/Week Comments Yes 0 (1 standard drink = 0.6 oz pur e alcohol) Comments No Sex and Gender Information Value Date Recorded Sex Assigned at Not on file Legal Sex Female 2:57 AM WOOD FURNITURE ASSEMBLER Gender Identity Not on file Sexual Orientation Straight 04/11/2023 9: 46 PM CDT documented as of this encounter Plan of Treatment Not on file documented as of this encounter Procedures Procedure Name Priority Date/Time Associated Diagnosis Comments SEDIMENTATION RATE Routine 05/22/2008 1: 49 PM WOOD FURNITURE ASSEMBLER NONA SCREEN W/REFLEX Routine 05/22/2008 1 :49 PM WOOD FURNITURE ASSEMBLER TSH Routine 05/22/2008 1:49 PM WOOD FURNITURE ASSEMBLER HEMOGLOBIN A1C Routine 05/22/2008 1:49 PM WOOD FURNITURE ASSEMBLER VITAMIN B12 LEVEL Routine 05/22/2008 1:4 9 PM WOOD FURNITURE ASSEMBLER documented in this encounter Results * NONA (05/22/2008 1:49 PM WOOD FURNITURE ASSEMBLER) Pathologist [facility] NONA SCREEN NEGATIVE NEGATIVE [facility] Comment: A NEGATIVE ANACHOICE(TM) INDICATES THE ABSENCE OF DETECTABLE ANTIBODIES TO COMPONENT ANALYTES CONSISTING OF DSDNA, CHROMATIN, UPHOLSTERY DEPARTMENT SUPERVISOR, SM/UPHOLSTERY DEPARTMENT SUPERVISOR, SM, SSA, SSB, AQUILINO-1, CENTROMERE B, SCL-70 AND RIBOSOMAL P. A NEGATIVE ANACHOICE(TM) SHOULD BE INTERPRETED IN THE CONTEXT OF THE CLINICAL AND LABORATORY FINDINGS, AND DOES NOT RULE OUT AUTOIMMUNE DISEASE CHARACTERIZED BY OTHER AUTOANTIBODY SPECIFICITIES INCLUDING AUTOIMMUNE HEPATITIS AND PRIMARY BILIARY CIRRHOSIS. Lab test performed by: [facility] [address] [place] [address] JACQUIE ORDONEZ MD Blood specimen (specimen) 05/22/2008 1:49 PM WOOD FURNITURE ASSEMBLER 05/22/2008 2:25 PM WOOD FURNITURE ASSEMBLER Omar Echols MD CHEMISTRY ORDERABLES Final Result Performing Organization Address [facility] Phone Number INTERFACE SYSTEM Refer to clinic/hospital department [facility] CLIA# [id number] [address] [place] [address] * VITAMIN B12 (05/22/2008 1:49 PM WOOD FURNITURE ASSEMBLER) Pathologist [facility] VITAMIN B12 321 211 - 946 pg/mL [facility] Comment: It has been reported that between 5 to 10% of patients with values between 200 and 400 pg/mL may experience neuropsychiatric and hematologic abnormalities due to occult B12 deficiency. Less than 1% of patients with values above 400 pg/mL will have symptoms. Blood specimen (specimen) 05/22/2008 1:49 PM WOOD FURNITURE ASSEMBLER 05/22/2008 2:25 PM WOOD FURNITURE ASSEMBLER Omar Echols MD CHEMISTRY ORDERABLES Edited Performing Organization Address City/[facility] Co de Phone Number INTERFACE SYSTEM Refer to clinic/hospital department [facility] CLIA# [id number] [address] [place] [address] * TSH (05/22/2008 1:49 PM WOOD FURNITURE ASSEMBLER) [facility] TSH 1.41 0.27 - 4.20 uU/mL [facility] Blood specimen (specimen) 05/22/2008 1:49 PM WOOD FURNITURE ASSEMBLER 05/22/2008 2:25 PM WOOD FURNITURE ASSEMBLER us Omar Echols MD CHEMISTRY ORDERABLES Final Result Performing Organization Address City/[facility] de Phone Number INTERFACE SYSTEM Refer to clinic/hospital department [facility] CLIA# [id number] [address] [place] [address] * SEDIMENTATION RATE (05/22/2008 1:49 PM WOOD FURNITURE ASSEMBLER) [facility] ESR (SEDIMENTATION RATE) 18 0 - 30 mm/hr [facility] Blood specimen (specimen) 05/22/2008 1:49 PM WOOD FURNITURE ASSEMBLER 05/22/2008 2:24 PM WOOD FURNITURE ASSEMBLER us Omar Echols MD HEMATOLOGY ORDERABLES Final Result Performing Organization Address [facility] de Phone Number INTERFACE SYSTEM Refer to clinic/hospital department [facility] CLIA# [id number] [address] [place] [address] * (ABNORMAL) HEMOGLOBIN A1C (05/22/2008 1:49 PM WOOD FURNITURE ASSEMBLER) [facility] HEMOGLOBIN A1C 6.9(H) 4.1 - 6.1 % of Hgb [facility] GLUCOSE, MEAN BLOOD 168 mg/dL [facility] Blood specimen (specimen) 05/22/2008 1:49 PM WOOD FURNITURE ASSEMBLER 05/22/2008 2:25 PM WOOD FURNITURE ASSEMBLER us Omar Echols MD CHEMISTRY ORDERABLES Final Result INTERFACE SYSTEM Refer to clinic/hospital department [facility] CLIA# [id number] [address] [place] [address] documented in this encounter Visit Diagnoses Diagnosis 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
--- OUTSIDE RECORDS SUMMARY | 2025-04-25 22:00 | XMS_ITS | Encounter Summary ---
Author Organization [facility] Address [address] [place] [address] Care Team Providers Care Rehabilitator Name Role Phone Jerome Dunn MD Primary Care Provider Encounter Details Date Type Department Care Team (Late st Contact Info) Description 12/22/2005 Outpatient [facility] Internal Medicine [facility] [address] [place] [address] Bere arizmendi, MD Rubi Social History Tobacco Use Types Packs/Day Years Used Date Smoking Tobacco: Never Assessed Comments Unknown Sex and Gender Information Value Date Recorded Sex Assigned at Not on file Legal Sex Female 2:57 AM EMERGENCY PHYSICIAN Gender Identity Not on file Sexual Orientation Straight 04/11/2023 9: 46 PM CDT documented as of this encounter Last Filed Vital Signs Vital Sign Reading Time Taken Comments Blood Pressure 124/84 12/22/2005 1:30 PM CDT Pulse 76 12/22/2005 1:30 PM CDT Temperature 37.2 C (98.9 F) 12/22/2005 1:30 PM CDT Respiratory Rate 20 12/22/2005 1:30 PM CDT Oxygen Saturation - - Inhaled Oxygen Concentration - - Weight 102.5 kg (226 lb) 12/22/2005 1:30 PM CDT Height 163.8 cm (5' 4.5) 12/22/2005 1:30 PM CDT Body Mass Index 38.19 12/22/2005 1:30 PM CDT documented in this encounter Plan of Treatment Not on file documented as of this encounter Visit Diagnoses Not on filedocumented in this encounter Care Teams Rehabilitator Relationship Specialty Start Date End Date Jerome Dunn MD [address] [place] [address] PCP - General Internal Medicine 10/30/20 documented as of this encounter
--- OUTSIDE RECORDS SUMMARY | 2025-04-25 22:00 | XMS_ITS | Clinical Summary ---
Author Organization [facility] Address [address] [place] [address] Phone Care Team Providers Care Kraft Digester Operator Name Role Phone Jerome Dunn MD Primary Care Provider Allergies Active Allergy Reactions Criticality Noted Date Comments Lisinopril Cough Low 10/28/2010 Losartan Itching Low 07/06/2018 Omeprazole Rash Medium 03/09/2021 Oxycodone-Acetaminophen Unknown Low 01/08/2019 Tetanus And Diphtheria Toxoi ds, Adsorbed, Adult Unknown 04/28/2022 Medications cholecalciferol (vitamin D3) 50 mcg (2,000 unit) tablet Take by mouth. Active polyethylene glycol 3350 (MIRALAX) 17 gram/dose Powder Take 17 Grams by mouth 2 times daily. PRN 11/23/2022 Active cyanocobalamin 1,000 mcg Tablet Take 1,000 mg by mouth daily. Active docusate sodium (COLACE) 100 mg capsule Take 1 Capsule (100 mg) by mouth 2 times daily as needed for Constipation . 12/30/2022 Active Active Problems Problem Noted Date Diagnosed Date Impaction, bowel 11/24/2022 Liver lesion 04/30/2021 Cirrhosis of liver without ascites 04/30/2021 Peripheral neuropathy 09/06/2012 Constipation 07/27/2011 Allergic rhinitis, cause unspecified 11/26/2005 Essential hypertension, benign 08/20/2005 Other and unspecified hyperlipidemia 08/20/2005 Resolved Problems Problem Noted Date Diagnosed Date Resolved Date DM (diabetes mellitus) type II controlled, neurological manifestation 09/29/2011 10/28/2021 Acute blood loss anemia 07/28/2011 04/09/2011 Acute renal failure 07/28/2011 09/15/19 12 HTN (hypertension) 07/27/2011 2 DM (diabetes mellitus) 07/27/201109/14 Dyslipidemia 07/27/2011 10/21/2011 Other diseases of lung, not elsewhere classified 08/02/2008 10/08/2010 Shortness of breath 04/03/2008 10/09/19 11 Cough 04/03/2008 10/08/2010 Type II or unspecified type diabetes mellitus without mention of complication, not stated as uncontrolled 01/03/2007 09/29/2011 Urinary tract infection, site not specified 01/03/2006 01/19/2008 Cough 12/22/2005 01/19/2008 Encounter for long-term (cur rent) use of other medications 12/06/2005 01/19/2008 Type II or unspecified type diabetes mellitus without mention of complication, uncontrolled 08/20/2005 10/08/2010 Immunizations Immunization Administration Dates Next Due (PNEUMOVAX 23)(50 YRS UP) PN EUMOCOCCAL POLYSACCHARIDE (PPV23) 0.5 ML, IM 10/28/2010 (PREVNAR 13)(6 WKS UP) PNEUM OCOCCAL CONJUGATE (PCV13) 0.5 ML, IM 10/20/2016 (TWINRIX)(18 YRS UP) HEPATIT IS A AND HEPATITIS B VACCINE ADULT, 1 ML, IM 12/26/2020,11/25/2020 INFLUENZA VACCINE QUADRIVALENT RECOMB 18 YR UP P F IM 04/28/2020 Family History * Patient is adopted Medical History Relation Name Comments Breast Cancer Neg Hx Cancer Neg Hx Ovarian Cancer Neg Hx Relation Name Status Comments Father Mother Social History Tobacco Use Types Packs/Day Years Used Date Smoking Tobacco: Never Tobacco Cessation:Counseling Given: Not Answered Alcohol Use Standard Drinks/Week Comments Yes 0.8 (1 standard drink = 0.6 oz p ure alcohol) social Comments No Sex and Gender Information Value Date Recorded Sex Assigned at Not on file Legal Sex Female 2:57 AM PRIMARY CARE SALES REPRESENTATIVE Gender Identity Not on file Sexual Orientation Straight 04/11/2023 9: 46 PM CDT Occupation Industry Job Start Date Job End Date Not on file Not on file Not on file Not on file Last Filed Vital Signs Vital Sign Reading Time Taken Comments Blood Pressure 142/73 04/28/2022 10:14 AM PRIMARY CARE SALES REPRESENTATIVE Pulse 65 04/28/2022 9:41 AM PRIMARY CARE SALES REPRESENTATIVE Temperature 36.7 C (98.1 F) 03/08/2014 9:52 AM CDT Respiratory Rate 16 03/08/2014 9:52 AM CDT Oxygen Saturation 98% 01/05/2013 1:53 PM CDT Inhaled Oxygen Concentration - - Weight 74.8 kg (165 lb) 06/30/2023 2:56 PM PRIMARY CARE SALES REPRESENTATIVE Height 162.6 cm (5' 4) 06/30/2023 2:56 PM PRIMARY CARE SALES REPRESENTATIVE Body Mass Index 28.32 06/30/2023 2:56 PM PRIMARY CARE SALES REPRESENTATIVE Plan of Treatment Health Maintenance Due Date Last Done Comments DTAP/TDAP/TD VACCINES (1 - Tdap) 1962 ZOSTER VACCINE (1 of 2) 1993 LDL CHOLESTEROL ANNUAL 05/16/2014 3, 01/16/2013, 07/08/2011, Additional history exists DIABETES ANNUAL FOOT EXAM 07/11/20142013, 07/11/2013, 09/06/2012, Additional history exists DIABETES MICROALBUMIN ANNUAL SCREEN 08/08/2014 08/08/2013, 03/27/2012, 10/26/2010, Additional history exists OSTEOPOROSIS SCREENING 11/12/2015 11/11/2010 RSV VACCINE (60+ or ) (1 - 1-dose 75+ series) 2018 DIABETES HBA1C Q 6 MONTHS 09/06/20212020, 12/29/2020, 09/08/2020, Additional history exists DIABETES ANNUAL RETINAL EXAM 05/05/2023, 10/09/2014, 09/05/2013, Additional history exists INFLUENZA VACCINE (#1) 2025 04/28/2020 COVID-19 Vaccine (2 - 2024-2 6 season) 2025 07/10/2020 COLORECTAL SCREENING Discontinued 09/18/2014, 10/01/2009, 10/01/2009, Additional history exists Colorectal Cancer Screening Discontinued PNEUMOCOCCAL VACCINE 50+ YEARS Completed 10/20/2016 , 10/28/2010 FIT-DNA Q 3 years Discontinued FIT/FOBT Q 1 year Discontinued Flex Sig/CT Colonography Q 5 years Discontinued Medical Devices Implanted Type Area Right Of Way Maintenance Supervisor Device Identifier Shelf Expiration Date Model / Serial / Lot Log [id number] - Cement - 1 - Cement [place] G-Hv 40g [id number] Implanted:Qty: 1 on 07/27/2011 at [facility] Cement Right: Knee [employer] 03/13/2013 [id number] / / [id number] Fem Vanguard Distal Peg [id number] Implanted:Qty: 1 on 07/27/2011 at [facility] Knee Right: Knee [employer] 04/13/2021 [id number] / / [id number] Patella 3peg Series A [id number] Implanted:Qty: 1 on 07/27/2011 at [facility] Knee Right: Knee [employer] 06/13/2016 [id number] / / [id number] Plate Tib Cocr Finned 71mm [id number] Implanted:Qty: 1 on 07/27/2011 at [facility] Knee Right: Knee [employer] 04/13/2021 [id number] / / [id number] Comp Fem Vng Ps Sz65 Rt [id number] Implanted:Qty: 1 on 07/27/2011 at [facility] Knee Right: Knee [employer] 05/13/2021 [id number] / / [id number] Bearing Tib Vng 10mm 71/75mm [id number] Implanted:Qty: 1 on 07/27/2011 at [facility] Knee Right: Knee [employer] 01/12/2016 [id number] / / [id number] Procedures Procedure Name Priority Date/Time Associated Diagnosis Comments POC HEMOGLOBIN A1C Routine 03/08/2014 12 :37 PM CDT DM (diabetes mellitus) type II controlled, neurological manifestation (CMS/HCC) MICROALBUMIN/CREATI NINE RATIO, RANDOM UR Routine 08/08/2013 3:26 PM PRIMARY CARE SALES REPRESENTATIVE DM (diabetes mellitus) type II controlled, neurological manifestation (CMS/HCC) LIPID PANEL Routine 05/16/2013 11:14 AM PRIMARY CARE SALES REPRESENTATIVE XR DEXA BONE DENSITY AXIAL 1 OR MORE SITES Routine 11/11/2010 11:31 AM CDT Loss of height ENDOSCOPY, COLON, SCREENING Routine 10/01/2009 from Last 3 Months or Most Recently Relevant to Health Maintenance Results * POC HEMOGLOBIN A1C (03/08/2014 12:37 PM CDT) Pathologist [facility] HGB A1C POC 5.7 4.0 - 6.0 % [facility] Capillary blood specimen (specimen) 03/08/2014 12:37 PM CDT Tammy Lambert MD POINT OF CARE TESTING Final Result [facility] * MICROALBUMIN/CREATININE RATIO, RANDOM UR (08/08/2013 3:26 PM PRIMARY CARE SALES REPRESENTATIVE) Pathologist [facility] MICROALBUMIN/C REAT RATIO, UR 28 0 - 29 mg/g creatinine [facility] Urine specimen (specimen) 08/08/2013 3:26 PM PRIMARY CARE SALES REPRESENTATIVE 08/08/2013 7:38 PM PRIMARY CARE SALES REPRESENTATIVE Comment:URINE Tammy Lambert MD URINE ORDERABLES Mahi l Result [facility] CLIA# [id number] [address] [address] * LIPID PANEL (05/16/2013 11:14 AM PRIMARY CARE SALES REPRESENTATIVE) Pathologist [facility] CHOLESTEROL 161 125 - 200 mg/dL [facility] Comment: Test Performed at: [facility] [address] [place] [address] JACQUIE GURROLA DO,MPH HDL 58 > OR = 46 mg/dL [facility] TRIGLYCERIDE 122 <150 mg/dL [facility] LDL CALCULATED 79 <130 mg/dL (calc) [facility] Comment: Desirable range <100 mg/dL for patients with CHD or diabetes and <70 mg/dL for diabetic patients with known heart disease. CHOL/HDL RATIO 2.8 < OR = 5.0 (calc) [facility] TOTAL NON-HDL CHOL(LDL+VLDL) 103 mg/dL (calc) [facility] Comment: Target for non-HDL cholesterol is 30 mg/dL higher than LDL cholesterol target. 05/16/2013 11:1 4 AM PRIMARY CARE SALES REPRESENTATIVE Tammy Lambert MD CHEMISTRY ORDERABLES Final Result INTERFACE SYSTEM Refer to clinic/hospital department [facility] [address] [address] * XR DEXA BONE DENSITY AXIAL 1 OR MORE SITES (11/11/2010 11:31 AM CDT) Anatomical Region Laterality Modality Digital Radiogra phy 11/11/2010 11:2 3 AM CDT Impressions 11/11/2010 11:34 AM CDT IMPRESSION: Lumbar spine: This patient's bone mineral density of the spine is normal when compared to the normal range of young adults. The patient is at low risk for a compression fracture. Hips: This patient's bone mineral density of the femoral neck is normal when compared to the normal range of young adults. The patient is at low risk for a hip fracture. Comments: None. Detailed report to follow. Dictated by Dr. Robert Zapata MD Narrative 11/11/2010 11:34 AM CDT Examination: Bone Density Study (DEXA) Clinical History: 65 year-old postmenopausal female. Evaluate current bone density. Findings: Lumbar Spine ( L 1-4 ) spine bone mineral density is 1.19 g/sq cm and corresponds to a T-score of 0.1. Femoral neck densities: Left femoral neck bone mineral density is 1.06 g/sq cm and corresponds to a T-score of 0.2. Right femoral neck bone mineral density is 1.01 g/sq cm and corresponds to a T-score of -0.2. Average femoral neck bone mineral density is 1.04 g/sq cm and corresponds to a T-score of 0.0. Procedure Note Robert Zapata MD - 11/11/2010 Examination: Bone Density Study (DEXA) Clinical History: 65 year-old postmenopausal female. Evaluate current bone density. Findings: Lumbar Spine ( L 1-4 ) spine bone mineral density is 1.19 g/sq cm and corresponds to a T-score of 0.1. Femoral neck densities: Left femoral neck bone mineral density is 1.06 g/sq cm and corresponds to a T-score of 0.2. Right femoral neck bone mineral density is 1.01 g/sq cm and corresponds to a T-score of -0.2. Average femoral neck bone mineral density is 1.04 g/sq cm and corresponds to a T-score of 0.0. IMPRESSION IMPRESSION: Lumbar spine: This patient's bone mineral density of the spine is normal when compared to the normal range of young adults. The patient is at low risk for a compression fracture. Hips: This patient's bone mineral density of the femoral neck is normal when compared to the normal range of young adults. The patient is at low risk for a hip fracture. Comments: None. Detailed report to follow. Dictated by Dr. Robert Zapata MD us Tammy Lambert MD DIAGNOSTIC IMAGING OR DERABLES Final Result * ENDOSCOPY, COLON, SCREENING (10/01/2009) us Rubi Guzman MD GI PROCEDURE ORDERABLES F inal Result EXTERNAL LAB from Last 3 Months or Most Recently Relevant to Health Maintenance Insurance MEDICARE PART A AND B [facility] Advance Directives For more information, please contact: [phone] * Full Code (Latest Code Status on File) Date Activated Date Inactivated Comments 07/27/2011 11:24 AM 07/30/2011 2:48 PM * Full Code Date Activated Date Inactivated Comments 07/27/2011 5:32 AM 07/27/2011 11:24 AM Care Teams Kraft Digester Operator Relationship Specialty Start Date End Date Jerome Dunn MD [address] [place] [address] PCP - General Internal Medicine 10/30/20
--- OUTSIDE RECORDS SUMMARY | 2025-04-25 22:00 | XMS_ITS | Encounter Summary ---
Author Organization [facility] Address [address] [place] [address] Care Team Providers Care Inspector And Tester Name Role Phone Jerome Dunn MD Primary Care Provider Encounter Details Date Type Department Care Team (Late st Contact Info) Description 11/26/2005 Outpatient [facility] Internal Medicine [facility] [address] [address] [facility] [address] [place] [address] Jairon Blankenship MD [address] [place] [address] Social History Tobacco Use Types Packs/Day Years Used Date Smoking Tobacco: Never Assessed Comments Unknown Sex and Gender Information Value Date Recorded Sex Assigned at Not on file Legal Sex Female 2:57 AM CIVIL ESTIMATOR Gender Identity Not on file Sexual Orientation Straight 04/11/2023 9: 46 PM CDT documented as of this encounter Last Filed Vital Signs Vital Sign Reading Time Taken Comments Blood Pressure 130/88 11/26/2005 1:45 PM CDT Pulse 78 11/26/2005 1:45 PM CDT Temperature 36.2 C (97.1 F) 11/26/2005 1:45 PM CDT Respiratory Rate 20 11/26/2005 1:45 PM CDT Oxygen Saturation - - Inhaled Oxygen Concentration - - Weight 107 kg (236 lb) 11/26/2005 1:45 PM CDT Height 163.8 cm (5' 4.5) 11/26/2005 1:45 PM CDT Body Mass Index 39.88 11/26/2005 1:45 PM CDT documented in this encounter Plan of Treatment Not on file documented as of this encounter Visit Diagnoses Not on filedocumented in this encounter Care Teams Inspector And Tester Relationship Specialty Start Date End Date Jerome Dunn MD [address] [place] [address] PCP - General Internal Medicine 10/30/20 documented as of this encounter
--- OUTSIDE RECORDS SUMMARY | 2025-04-25 22:00 | XMS_ITS | Encounter Summary ---
Author Organization [facility] Address [address] [place] [address] Care Team Providers Care Ehs Engineer Name Role Phone Jerome Dunn MD Primary Care Provider Encounter Details Date Type Department Care Team (Latest Contact Info) Description 02/28/2008 Outpatient Historical HIS CARD ELECTRONIC CONSOLE DISPLAY OPERATOR Ángel Mckenna MD NO ADDRESS ON FILE Other Nonspecific Abnormal Cardiovascular System Function Study Social History Tobacco Use Types Packs/Day Years Used Date Smoking Tobacco: Never Alcohol Use Standard Drinks/Week Comments Yes 0 (1 standard drink = 0.6 oz pur e alcohol) Comments No Sex and Gender Information Value Date Recorded Sex Assigned at Not on file Legal Sex Female 2:57 AM BIOCHEMIST Gender Identity Not on file Sexual Orientation Straight 04/11/2023 9: 46 PM CDT documented as of this encounter Plan of Treatment Not on file documented as of this encounter Procedures Procedure Name Priority Date/Time Associated Diagnosis Comments CBC WITH DIFFERENTIAL Stat 02/28/2008 7:04 AM CDT PROTIME-INR Stat 02/28/2008 7:04 AM CDT BASIC METABOLIC PANEL Stat 02/28/2008 7:04 AM CDT documented in this encounter Results * (ABNORMAL) CBC WITH DIFFERENTIAL (02/28/2008 7:04 AM CDT) MCV 83.3 82.0 - 99.0 fL [facility] RBC 4.91(H) 3.90 - 4.90 M/uL [facility] PLATELETS 207 140 - 350 K/uL [facility] RDW 14.1 11.5 - 14.5 % [facility] MCH 28.1 27.2 - 32.6 pg [facility] MPV 10.8 9.3 - 12.4 fL [facility] HEMOGLOBIN 13.8 11.8 - 14.8 g/dL [facility] HEMATOCRIT 40.9 35.5 - 44.0 % [facility] RDW-STDEV 42.5 37.1 - 48.7 fL [facility] WBC 9.2 4.0 - 9.8 K/uL [facility] MCHC 33.7 31.5 - 35.5 % [facility] NEUTROPHIL ABSOLUTE 6.10 1.90 - 7.00 K/uL [facility] EOSINOPHILS 2 0 - 7 % [facility] EOSINOPHIL ABSOLUTE 0.15 0.00 - 0.70 K/uL [facility] LYMPHOCYTES 25 16 - 45 % [facility] LYMPHOCYTE ABSOLUTE 2.27 0.70 - 4.50 K/uL [facility] BASOPHILS 0 0 - 2 % [facility] BASOPHILS ABSOLUTE 0.02 0.00 - 0.20 K/uL [facility] MONOCYTES 7 3 - 13 % [facility] MONOCYTE ABSOLUTE 0.66 0.10 - 1.30 K/uL [facility] NEUTROPHILS 66 45 - 70 % [facility] Blood specimen (specimen) 02/28/2008 7:04 AM CDT 02/28/2008 7:12 AM CDT us Ángel Mckenna MD HEMATOLOGY ORDERABLES Edited Performing Organization Address City/State/[facility] de Phone Number INTERFACE SYSTEM Refer to clinic/hospital department [facility] CLIA# [id number] [address] [place] [address] * (ABNORMAL) BASIC METABOLIC PANEL (02/28/2008 7:04 AM CDT) CALCIUM 9.3 8.6 - 10.2 mg/dL [facility] CO2 22 22 - 30 mmol/L [facility] CREATININE 0.68 0.51 - 0.95 mg/dL [facility] POTASSIUM 3.8 3.5 - 4.9 mmol/L [facility] BUN 12 6 - 20 mg/dL [facility] CHLORIDE 105 96 - 108 mmol/L [facility] GLUCOSE 153(H) 65 - 99 mg/dL [facility] SODIUM 139 135 - 145 mmol/L [facility] GFR, >60 >=60 mL/min/1. 7 sq meter [facility] GFR >60 >=60 mL/min/1. 7 sq meter [facility] Comment: Modification of Diet in Renal Disease (MDRD) study formula. Estimated GFR rate interpretative information for both Americans and non- Americans is available on the [facility] Intranet at: [email or web address] Select: Lab Policies and Procedures Select: Reference Ranges - GFR Blood specimen (specimen) 02/28/2008 7:04 AM CDT 02/28/2008 7:12 AM CDT Ángel Mckenna MD CHEMISTRY ORDERABLES Edited Performing Organization Address [facility] Co de Phone Number INTERFACE SYSTEM Refer to clinic/hospital department [facility] CLIA# [id number] [address] [place] [address] * PROTIME-INR (02/28/2008 7:04 AM CDT) PROTIME 14.3 12.7 - 15.1 Seconds [facility] INR 1.1 0.9 - 1.1 [facility] Comment: INR Therapeutic Range: Adult: 2.0 - 3.0 for pulmonary embolism or prophylaxis against venous thrombosis or systemic embolization. 2.0 - 3.0 for patients with tissue heart valves. 2.5 - 3.5 for patients with mechanical heart valves or post [place]. Pediatric (12 years and under): 1.5 - 3.0 Although the target range in children is not well established, INR values of 1.5 - 3.0 are recommended for most patients. Higher values have been used in children with prosthetic cardiac valves and hereditary clotting disorders. Thida (<3 days) therapeutic ranges have not been established. Blood specimen (specimen) 02/28/2008 7:04 AM CDT 02/28/2008 7:12 AM CDT us Ángel Mckenna MD HEMATOLOGY ORDERABLES Final Resu lt INTERFACE SYSTEM Refer to clinic/hospital department [facility] CLIA# [id number] [address] [place] [address] documented in this encounter Visit Diagnoses Diagnosis Other nonspecific abnormal cardiovascular system function study documented in this encounter Care Teams Ehs Engineer Relationship Specialty Start Date End Date Jerome Dunn MD [address] [place] [address] PCP - General Internal Medicine 10/30/20 documented as of this encounter
--- OUTSIDE RECORDS SUMMARY | 2025-04-25 22:00 | XMS_ITS | Encounter Summary ---
Author Organization [facility] Address [address] [place] [address] Care Team Providers Care Flood Control Engineer Name Role Phone Jerome Dunn MD Primary Care Provider Encounter Details Date Type Department Care Team (Late st Contact Info) Description 10/08/2008 Outpatient Historical [facility] Rubi Guzman MD NO ADDRESS ON FILE Lumbago Social History Tobacco Use Types Packs/Day Years Used Date Smoking Tobacco: Never Alcohol Use Standard Drinks/Week Comments Yes 0 (1 standard drink = 0.6 oz pur e alcohol) Comments No Sex and Gender Information Value Date Recorded Sex Assigned at Not on file Legal Sex Female 2:57 AM CATECHIST Gender Identity Not on file Sexual Orientation Straight 04/11/2023 9: 46 PM CDT documented as of this encounter Plan of Treatment Not on file documented as of this encounter Visit Diagnoses Diagnosis Lumbago documented in this encounter Care Teams Flood Control Engineer Relationship Specialty Start Date End Date Jerome Dunn MD [address] [place] [address] PCP - General Internal Medicine 10/30/20 documented as of this encounter
--- OUTSIDE RECORDS SUMMARY | 2025-04-25 22:00 | XMS_ITS | Data Portability ---
Author Organization [place] - [facility] [employer] [facility], Main Office Address [address] [place] [address] Assessment Encounter Date Assessment Date Assessment LastModified by Organization Details LastModified Time 12/06/2023 12/06/2023 This note is dictated and transcribed by [employer]. [employer] variances may occur. Despite proofreading, typographical errors may occur. Occasional wrong-word or 'gmief-j-xqvx' substitutions may have occurred due to the inherent limitations of voice recording. Read the chart carefully and recognize, using context, where substitutions have occurred. Not available 12/06/2023 15:16:20 04/10/2024 04/10/2024 This note is dictated and transcribed by [employer]. [employer] variances may occur. Despite proofreading, typographical errors may occur. Occasional wrong-word or 'pjayw-g-xtrn' substitutions may have occurred due to the inherent limitations of voice recording. Read the chart carefully and recognize, using context, where substitutions have occurred. Not available 04/10/2024 13:11:59 07/10/2024 07/10/2024 This note is dictated and transcribed by [employer]. [employer] variances may occur. Despite proofreading, typographical errors may occur. Occasional wrong-word or 'lgtrh-v-gbxn' substitutions may have occurred due to the inherent limitations of voice recording. Read the chart carefully and recognize, using context, where substitutions have occurred. Not available 07/10/2024 14:36:23 08/14/2024 08/14/2024 This note is dictated and transcribed by [employer]. [employer] variances may occur. Despite proofreading, typographical errors may occur. Occasional wrong-word or 'ikphi-i-evdk' substitutions may have occurred due to the inherent limitations of voice recording. Read the chart carefully and recognize, using context, where substitutions have occurred. Not available 08/14/2024 16:55:35 Plan of Treatment Reminders Order Date Submit Date Provider Last Modified By Organization Details Last Modified Time Details Appointments None record ed. Lab None record ed. Referral None record ed. Procedures None record ed. Surgeries None record ed. Imaging None record ed. Medication Orders None record ed. Patient TargetsNo targets recorded. Patient InstructionsNo instructions recorded. Reason for Referral None Reported. Problems Name Problem SNOMED Code Status Onset Date Resolution Date Notes Provider Name and Address Organization Details Recorded Time Disease of liver 985952120 Active 2020 Not Available [facility] 3 00:43:34 Arthritis 7700813 Active 2020 Not Available [facility] 3 00:43:34 Obesity 870627397 Active 2020 Not Available [facility] 3 00:43:35 Osteoporos is 17997566 Active 2020 Not Available [facility] 3 00:43:35 Diabetes mellitus 77333478 Active 2020 Not Available [facility] 3 00:43:35 Left foot drop 8349923289668 05 Active 2020 Not Available [facility] 3 00:43:34 Blister of foot 129962900 Active 2020 Not Available [facility] 3 00:43:35 Neuropathy 710544893 Active 2023 Lexi greene, [facility] 4 14:36:46 Pain in left foot 5363456046140 07 Active 2023 Quinn Robles DPM [address], [place], [address] , [facility] 4 15:16:28 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 2023 Quinn Robles DPM [address], [place], [address] , [facility] 4 15:16:34 Metatarsal cici of left foot 8749549850422 06 Active 2023 Quinn Robles DPM [address], [place], [address] , [facility] 4 15:16:41 Foot callus 674074198 Active 2023 Quinn Robles DPM [address], [place], [address] , [facility] 4 15:16:45 Right foot drop 9084921315418 06 Active 2023 Quinn Robles DPM [address], [place], [address] , [facility] 4 15:17:11 Dystrophia unguium 14206289 Active 2023 Quinn Robles DPM [address], [place], [address] , [facility] 4 15:18:02 Acquired right mallet toe 5834640248393 9109 Active 2024 Quinn Robles DPM [address], [place], [address] , [employer] [facility] 5 14:35:09 Pain of toe of right foot 0563378414844 Active 2024 Quinn Robles DPM [address], [place], [address] , [employer] [facility] 5 14:35:14 Notes:nerve disease Problem Notes None recorded. Procedures Surgical History Date Name Laterality Status Provider Name and Address Organization Details Recorded Time 07/10/19 25 Nail Debridement completed Quinn Robles DPM [address], [place], [address], [facility] [employer] [facility] 07/10/2024 14:33:59 04/10/20 24 Nail Debridement completed Quinn Robles DPM [address], [place], [address], [facility] [employer] [facility] 04/10/2024 13:11:10 12/06/19 24 Nail Debridement completed Quinn Robles DPM [address] [facility], [facility] [address], [place], [address], [facility] [employer] [facility] 12/06/2023 15:13:28 Knee Replacement completed Lexi Arias [facility] [employer] [facility] 12/06/2023 14:38:19 Imaging Results None recorded. Procedure Notes None recorded. Medical Equipment None Reported. Allergies No known drug allergies Medications Name Sig Start Date Stop Date Status Note LastModified by Organization Details LastModified Time medroxyproge sterone 2.5 mg tablet 12/05 completed Not Available Not Available Not Available gabapentin 300 mg capsule 12/05 completed Not Available Not Available Not Available cyclobenzapr ine 5 mg tablet TAKE 1 TABLET BY MOUTH THREE TIMES DAILY FOR 7 DAYS NEEDED active Not Available Not Available No t Available nitrofuranto in monohydrate/ macrocrystal s 100 mg capsule TAKE 1 CAPSULE BY MOUTH TWICE DAILY FOR 7 DAYS active Not Available Not Available No t Available Suprep Bowel Prep Kit 17.5 gram-3.13 gram-1.6 gram oral solution 12/05 completed Not Available Not Available Not Available Vitals Date Recorded Body height Heart rate Respiratory rate Oxygen saturation Oxygen saturation in Arterial blood by Pulse oximetry Systolic And Diastolic Provider Name and Address Organization Details Last Updated DateTime 5 162.56 cm 69 /min 14 /min 98 % 98 % 162/85 mm[Hg] Irma Simental [facility] [employer] [facility] 14:22:31 Date Recorded Body height Heart rate Respiratory rate Oxygen saturation Oxygen saturation in Arterial blood by Pulse oximetry Systolic And Diastolic Provider Name and Address Organization Details Last Updated DateTime 162.56 cm 68 /min 14 /min 98 % 98 % 149/82 mm[Hg] Irma Simental [facility] [employer] [facility] 16:37:35 Date Recorded Body height Provider Name an d Address Organization Details Last Updated DateTime 12/06/2023 162.56 cm Lexi Arias [facility] 12/06/2023 14:36:07 Date Recorded Body height Heart rate Respiratory rate Oxygen saturation Oxygen saturation in Arterial blood by Pulse oximetry Systolic And Diastolic Provider Name and Address Organization Details Last Updated DateTime 4 162.56 cm 69 /min 14 /min 98 % 98 % 137/75 mm[Hg] Irma LOPEZ - [facility] [employer] [facility] 12:15:15 Social History None recorded. Functional Status Question Answer Note LastModified by Organization D etails LastModified Time What is your level of alcohol consumption? None [email or web address] Information not available 12/06/2023 Mental Status None recorded. Family History Nothing Reported Notes:ADOPTED Medical History Condition Response NEUROPATHY Y ARTHRITIS Y DIABETES, TYPE Y OSTEOPOROSIS Y OBESITY Y HEPATITIS / LIVER DISEASE Y Gynecological HistoryNo gynecological history recorded. Obstetrics History GPAL:G 0 P 0 0 0 0 Past Encounters Encounter ID Performer Location Encounter Start Date Encounter Closed Date Diagnosis/Indication Diagnosis SNOMED-CT Code Diagnosis ICD10 Code Diagnosis IMO Codes Diagnosis Note [id number] Quinn Robles DPM [facility] [place] [address] [address] 12/06/2023 14:27:49 12/07/2023 12:37:43 Pain in left foot 0149236968 90589 M79.672 secondary to below Fat pad syndrome 5415776 03 E65 left foot- fat pad atrophy forefootdi scussed multi-laye red density options for insoles to offload the 5th metatarsal headpatien t will obtain bring to the office for cut-out under the sub 5th metatarsal head left foot Metatarsal cici of left foot 0269689663 22143 M77.42 sub 5th met head secondary to fat pad atrophyrec ommend supportive shoe gear- new balance, [facility] Foot callus 866599360 L8 4 sub 5th met headas above Right foot drop 54302120 01 72873 M21.371 continue AFO Dystrophia unguium 96954 009 L60.3 nails debrided without incident [id number] Quinn Robles DPM [facility] [place] [address] [address] 04/10/2024 12:11:47 06/08/2024 10:19:09 Diabetes mellitus 22051115 E11.9 Continue diabetic control per PCP recommenda tions Dystrophia unguium 61821 009 L60.3 nails debrided without incident Metatarsal cici of left foot 9338458865 69117 M77.42 sub 5th met head secondary to fat pad atrophyrec ommend supportive shoe gear- Devyn collazo [id number] Quinn Robles DPM [facility] [place] [address] [facility] [address] [place] [address] 07/10/2024 14:14:25 07/11/2024 16:46:10 Acquired right mallet toe 4126941035 1322928 M20.5X1 educated on treatment optionscon servative therapy with offloading monitor for signs of infection wounds if present seek medical attention immediatel yFollow-up in 1 month if not improved will plan surgery possible partial phalangect sharon with pinning of the toe Pain of to e of right foot 6780298311 58394 M79.674 great toe secondary to mallet toe Foot callus 163729592 L8 4 sub 5th met head- leftresolv edcontinue supportive shoeMonito r for wounds daily at present seek medical attention immediatel y Dystrophia unguium 97902 009 L60.3 nails debrided without incident [id number] Quinn Robles DPM [facility] [address] [place] [address] 08/14/2024 16:14:48 08/14/2024 17:06:37 Acquired right mallet toe 9988866602 3946001 M20.5X1 pain resolved with silicone offloading and wide shoe geareducat ed on treatment optionscon servative therapy with offloading monitor for signs of infection wounds if present seek medical attention immediatel yFollow-up as needed Pain of to e of right foot 8323991349 03734 M79.674 right great toe secondary to mallet toe- as above Health Concerns Section Related Observation LastModified by Organization Detai ls LastModified Time None Recorded Concern Status LastModified by Organization Details LastModified Time None Recorded Advance Directives Directive None Recorded Payers Insurance Date Sequence Insurance Name Policy Number Policy Bland Covered Member ID Bland Member ID Guarantor Name 11/26/2024 2 [place] [id number] Justa salgado [id number] Justa Torres 11/26/2024 1 [place] Justa salgado [id number] Justa Trores 08/14/2024 2 [facility] (MEDICARE SUPPLEMENT) Justa salgado [id number] Justa Torres Notes Date Note Type Note Provider Name and Address Organization Details Recorded Time 12/06/2023 text/html . Patient is an 78-year-old female diabetic who returns the office for follow-up on diabetic foot care she denies any open wounds or infection. Patient states she has pain to the left foot secondary to plantar flexed ankle with increased pressure to the forefoot and metatarsalgia with callus sub 5th metatarsal head. Patient wears an AFO to the right lower extremity. Patient states she continues to walk with a walker. Patient does have an adequate shoe gear I discussed different options with more supportive shoe gear as well as diabetic style insoles to help offload the foot. I discussed options in detail with the patient but she declines any surgical options and would like to continue with conservative therapy. Quinn Robles DPM [address], [address], [place], [address], [employer] 12/07/2023 09:24:27 04/10/2024 text/html . Patient is an 78-year-old female who returns to the office for diabetic foot care. Patient states overall she is doing well she denies any new complaints. Patient states she does have mild pain under the sub 5th metatarsal head of the left foot she denies any open wounds she has bilateral drop foot. Patient uses bracing to the left foot. Patient states she does not want to utilize bracing on the right as she has some ability to dorsiflex her foot. Patient utilizes a walker with walking. Patient states she would like her nails cut she denies any other complaints. Quinn Robles DPM [address], [place], [address], [employer] [facility] 04/14/2024 11:38:26 07/10/2024 text/html . Patient is an 79-year-old female diabetic she returns for follow-up on callus to the left foot which has resolved. Patient denies any wounds to the left foot she states that she now has pain and problems with her great toe on the right foot. Patient has a mallet toe deformity with arthritis and she is developing redness and irritation over the medial base of the distal phalanx. I did review conservative options as well as surgical options which she would like to continue with attempts at conservative therapy if this fails we may have to perform surgery such as a partial phalangectomy of the great toe. Patient denies any other complaints. Quinn Robles DPM [address], [place], [address], [employer] [facility] 07/10/2024 16:21:18 08/14/2024 text/html . Patient is a 79-year-old female who returns the office for follow-up on pain to the right great toe. Patient states that she is no longer having any pain to the mallet toe deformity she denies wanting any surgery she has been performing conservative offloading with the silicone toe cap which has worked wonders. Patient denies any other pain or signs of infection or wounds. Patient denies any other complaints. Quinn Robles DPM [address], [place], [address], [employer] [facility] 08/14/2024 16:56:54 OBGyn Episode No OBEpisode recorded.
[2025-04-25 22:01] VITALS: BP 157/65; PULSE 71; RESP 16; TEMP 36.6; O2SAT 100
--- NOTE | 2025-04-26 00:25 | ED.FALL ---
HPI - Fall General Chief Complaint: Fall Stated Complaint: fall head injury Time Seen by Provider: 04/26/25 00:10 Source: patient and family (2 brothers) History of Present Illness HPI Narrative: Patient presents after a mechanical fall. 1 of her daughter's with whom she lives notes that her shoe was not tied and the brace she wears on her foot was off and she tripped. Just recently started living with this daughter and also had a fall in the shower last week. Patient has home health services (PT, OT and speech therapy). Not on anticoagulation. No loss of consciousness. No pain meds taken prior to arrival. Had struck her head and has a hematoma but also was having R knee pain; history of arthroplasty on this extremity. Pain 4 or 5 out of 10 in severity. No nausea. No seizures after the event. Not amnestic to the event. PCP Dr Dunn (through [facility]) Related Data Allergies Allergy/AdvReac Type Severity Reaction Status Date / Time tetanus and diphtheria Allergy Intermediate Swelling Verified 04/25/25 22:03 toxoids lisinopril Allergy Mild Cough Verified 04/25/25 22:03 PMFSH Surgical History Surgical History History of arthroplasty of right knee Social History Social History Social History: 2 daughters Living arrangements: with family Additional living arrangements comments: daughter Exam Narrative: GENERAL: Well-appearing, well-nourished, and in no acute distress. HEAD: Hematoma with faint ecchymosis over left forehead, extension into left periorbital space EYES: Non injected, non icteric. Very mild edema and ecchymosis of the left medial upper eyelid. No subconjunctival hemorrhage ENT: Nares clear, no rhinorrhea or epistaxis. Gross auditory acuity intact. NECK: Supple. No meningismus. CHEST: Speaking in full sentences. No respiratory distress. HEART: Regular rate and rhythm. . ABDOMEN: Soft, nondistended. No rigidity or guarding. Not peritoneal EXTREMITIES: Faint very superficial abrasion overlying right knee which otherwise has a well healing linear surgical scar SKIN: Warm, dry, no rash. NEURO: No focal deficits. Alert and oriented. Answering questions. Following commands. Normal speech without aphasia or dysarthria. PSYCH: Normal mood and affect. Course Vital Signs Vital signs: Vital Signs Temperature 97.8 F 04/25/25 22:01 Pulse Rate 71 04/25/25 22:01 Respiratory Rate 16 04/25/25 22:01 Blood Pressure 157/65 H 04/25/25 22:01 Pulse Oximetry 100 04/25/25 22:01 Oxygen Delivery Room Air 04/25/25 22:01 Temperature 97.8 F 04/25/25 22:01 Pulse Rate 89 04/26/25 01:45 Respiratory Rate 24 H 04/26/25 01:45 Blood Pressure 143/50 H 04/26/25 01:31 Pulse Oximetry 100 04/26/25 01:31 Oxygen Delivery Room Air 04/25/25 22:01 MDM - Fall MDM Narrative Medical decision making narrative: Patient presents after a mechanical fall. Struck head and believes right knee. In the emergency department she is afebrile with vital signs notable for hypertension. Hematoma on left forehead. Imaging negative. Patient and her family appropriate. Daughter feels terrible that mother has fallen twice since moving in with her. Continuing to equip house and identify risks. Advised to take analgesic meds in the next few days and educated on natural anticipated progression/healing of her injuries. Stable for discharge. Differential Diagnosis Differential diagnosis: Likely compression fracture and other (intracranial heorrhage; hematoma; internal dereangement of knee; fracture/dislocation) Imaging Data Radiologist's impression: Impressions Knee X-Ray 04/25/25 22:18 IMPRESSION: Radiographic examination of the right knee demonstrates no acute fracture or dislocation. Head CT 04/25/25 22:22 IMPRESSION: No acute intracranial hemorrhage or extra axial fluid collections. Generalized atrophy and chronic white matter microangiopathic changes. All CT scans at this facility are performed using low dose modulation techniques as appropriate to perform exam including the following: automated exposure control; use of iterative reconstruction technique; adjustment of the mA and/or kV according to patient size (this includes techniques or standardized protocols for targeted exams where dose is matched to indication/reason for exam). Cervical Spine CT 04/25/25 22:34 IMPRESSION: No acute fracture or subluxation. All CT scans at this facility are performed using low dose modulation techniques as appropriate to perform exam including the following: automated exposure control; adjustment of the mA and/or kV according to patient size (this includes techniques or standardized protocols for targeted exams where does is matched to indication/reason for exam; i.e. extremities or head); use of iterative reconstruction technique). Discharge Plan Discharge Clinical Impression: Fall, Traumatic hematoma of forehead Knee pain, right Qualifiers: Chronicity: unspecified Qualified Code(s): M25.561 - Pain in right knee Patient Disposition: Home Condition: Stable Instructions: Antibiotic Form, Fall Prevention for Older Adults (ED), Knee Pain (ED), Hematoma (ED) Additional Instructions: As we discussed, you will likely be sore and achy over the next few days. Acetaminophen/Tylenol (maximum 4000 mg per day) is safe to take with NSAIDs (ibuprofen/Motrin) for pain relief. Follow-up with your primary care physician. Return to the emergency department any new or worsening symptoms. Patient Language: Chinese Follow-up/Referrals: Shaun,Jerome Nova MD [Primary Care Provider] Time of Disposition: 01:23
[2025-04-26 00:31] VITALS: BP 127/71; PULSE 65; RESP 14; O2SAT 100
--- OUTSIDE RECORDS SUMMARY | 2025-04-26 00:45 | XMS_ITS | Encounter Summary ---
Author Organization [facility] Address [address] [place] [address] Care Team Providers Care Drill Press Hand Name Role Phone Jerome Dnun MD Primary Care Provider Encounter Details Date Type Department Care Team (Late st Contact Info) Description 07/20/[address] [facility] Internal Medicine [facility] [address] [place] [phone] Bere arizmendi, MD Rubi Social History Tobacco Use Types Packs/Day Years Used Date Smoking Tobacco: Never Assessed Comments Unknown Sex and Gender Information Value Date Recorded Sex Assigned at Not on file Legal Sex Female 2:57 AM MASTICATOR Gender Identity Not on file Sexual Orientation Straight 04/11/2023 9: 46 PM CDT documented as of this encounter Plan of Treatment Not on file documented as of this encounter Visit Diagnoses Not on filedocumented in this encounter Care Teams Drill Press Hand Relationship Specialty Start Date End Date Jerome Dunn MD [address] [address] PCP - General Internal Medicine 10/30/20 documented as of this encounter
--- OUTSIDE RECORDS SUMMARY | 2025-04-26 00:45 | XMS_ITS | Encounter Summary ---
Author Organization [facility] Address [address] [place] [address] Care Team Providers Care Lead Clinical Research Coordinator Name Role Phone Jerome Dunn MD Primary Care Provider Encounter Details Date Type Department Care Team (Late st Contact Info) Description 07/20/2007 Outpatient [facility] Internal Medicine [facility] [address] [place] [phone] Bere arizmendi, MD Rubi Social History Tobacco Use Types Packs/Day Years Used Date Smoking Tobacco: Never Assessed Comments Unknown Sex and Gender Information Value Date Recorded Sex Assigned at Not on file Legal Sex Female 2:57 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
--- OUTSIDE RECORDS SUMMARY | 2025-04-26 00:46 | XMS_ITS | Encounter Summary ---
Author Organization [facility] Address [address] [place] [address] Care Team Providers Care Gamer Name Role Phone Jerome Dunn MD Primary Care Provider Encounter Details Date Type Department Care Team (Late st Contact Info) Description 02/04/2005 Outpatient Historical [facility] Support Serv. (Adt Cardiology-[facility]) [address] [place] [address] Ángel Concepcion MD [address] [place] [address] Social History Tobacco Use Types Packs/Day Years Used Date Smoking Tobacco: Never Assessed Comments Unknown Sex and Gender Information Value Date Recorded Sex Assigned at Not on file Legal Sex Female 2:57 AM RF TECHNICIAN Gender Identity Not on file Sexual Orientation Straight 04/11/2023 9: 46 PM CDT documented as of this encounter Plan of Treatment Not on file documented as of this encounter Visit Diagnoses Not on filedocumented in this encounter Care Teams Gamer Relationship Specialty Start Date End Date Jerome Dunn MD [address] [address] PCP - General Internal Medicine 10/30/20 documented as of this encounter
--- OUTSIDE RECORDS SUMMARY | 2025-04-26 00:46 | XMS_ITS | Encounter Summary ---
Author Organization [facility] Address [address] [place] [address] Care Team Providers Care Plant Maintenance Worker Name Role Phone Jerome Dunn MD Primary Care Provider Encounter Details Date Type Department Care Team (Latest Contact Info) Description 07/31/2007 Outpatient [facility] [address] [place] [address] Scot Morales, DPM [address] [place] [address] Achilles Bursitis or Tendinitis Social History Tobacco Use Types Packs/Day Years Used Date Smoking Tobacco: Never Assessed Comments Unknown Sex and Gender Information Value Date Recorded Sex Assigned at Not on file Legal Sex Female 2:57 AM DAILY RELEASE AND DUPE PRINTER Gender Identity Not on file Sexual Orientation Straight 04/11/2023 9: 46 PM CDT documented as of this encounter Plan of Treatment Not on file documented as of this encounter Procedures Procedure Name Priority Date/Time Associated Diagnosis Comments MRI ANKLE WO CONTRAST RIGHT Timed Study 07/31/2007 11:56 AM DAILY RELEASE AND DUPE PRINTER documented in this encounter Results * MRI ANKLE WO CONTRAST RIGHT (07/31/2007 11:56 AM DAILY RELEASE AND DUPE PRINTER) Anatomical Region Laterality Modality Ankle / Foot Other 07/31/2007 11:5 6 AM DAILY RELEASE AND DUPE PRINTER Narrative 07/31/2007 3:19 PM DAILY RELEASE AND DUPE PRINTER [facility] [address] [place], [place] [address] Admit Date: 07/31/2007 NASIR PATIÑO Sex: F Admit Prov: SCOT MORALES Date: 1945 Primary Care Prov: LYNNE CLIFTON CMRN: [id number] Room: [facility] SSN: [id number] IMAGING SERVICES Ordering Prov: N/A Accession Number: [id number] Interpretation Exam: MRI right ankle without contrast [...] AMK Procedure Note Eric Randhawa - 07/31/2007 [facility] [address] [place], [place] [address] Admit Date: 07/31/2007 NASIR PATIÑO Sex: F Admit Prov: SCOT MORALES Date:1945 Primary Care Prov: LYNNE CLIFTON CMRN: [id number] Room: [facility] SSN: [id number] IMAGING SERVICES Ordering Prov: N/A Interpretation Exam: [...] tendinitis documented in this encounter Care Teams Plant Maintenance Worker Relationship Specialty Start Date End Date Jerome Dunn MD [address] [place] [phone] PCP - General Internal Medicine 10/30/20 documented as of this encounter
--- OUTSIDE RECORDS SUMMARY | 2025-04-26 00:46 | XMS_ITS | Encounter Summary ---
Author Organization [facility] Address 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
--- OUTSIDE RECORDS SUMMARY | 2025-04-26 00:46 | XMS_ITS | Encounter Summary ---
Author Organization [facility] Address 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) Social History Tobacco Use Types Packs/Day Years Used Date Smoking Tobacco: Never Alcohol Use Standard Drinks/Week Comments Yes 0 (1 standard drink = 0.6 oz pur e alcohol) Comments No Sex and Gender Information Value Date Recorded Sex Assigned at Not on file Legal Sex Female 2:57 AM CYBER ANALYST Gender Identity Not on file Sexual Orientation Straight 04/11/2023 9: 46 PM CDT documented as of this encounter Plan of Treatment Not on file documented as of this encounter Procedures Procedure Name Priority Date/Time Associated Diagnosis Comments SEDIMENTATION RATE Routine 05/22/2008 1: 49 PM CYBER ANALYST NONA SCREEN W/REFLEX Routine 05/22/2008 1 :49 PM CYBER ANALYST TSH Routine 05/22/2008 1:49 PM CYBER ANALYST HEMOGLOBIN A1C Routine 05/22/2008 1:49 PM CYBER ANALYST VITAMIN B12 LEVEL Routine 05/22/2008 1:4 9 PM CYBER ANALYST documented in this encounter Results * NONA (05/22/2008 1:49 PM CYBER ANALYST) Pathologist [facility] NONA SCREEN NEGATIVE NEGATIVE [facility] Comment: A NEGATIVE ANACHOICE(TM) INDICATES THE ABSENCE OF DETECTABLE ANTIBODIES TO COMPONENT ANALYTES CONSISTING OF DSDNA, CHROMATIN, SCALLOP CUTTER MACHINE, SM/SCALLOP CUTTER MACHINE, SM, SSA, SSB, AQUILINO-1, CENTROMERE B, SCL-70 AND RIBOSOMAL P. A NEGATIVE ANACHOICE(TM) SHOULD BE INTERPRETED IN THE CONTEXT OF THE CLINICAL AND LABORATORY FINDINGS, AND DOES NOT RULE OUT AUTOIMMUNE DISEASE CHARACTERIZED BY OTHER AUTOANTIBODY SPECIFICITIES INCLUDING AUTOIMMUNE HEPATITIS AND PRIMARY BILIARY CIRRHOSIS. Lab test performed by: [facility] [id number] [place] [address] JACQUIE ORDONEZ MD Blood specimen (specimen) 05/22/2008 1:49 PM CYBER ANALYST 05/22/2008 2:25 PM CYBER ANALYST Omar Echols MD CHEMISTRY ORDERABLES Final Result Performing Organization Address [facility] Phone Number INTERFACE SYSTEM Refer to clinic/hospital department [facility] CLIA# [id number] [address] [place] [address] * VITAMIN B12 (05/22/2008 1:49 PM CYBER ANALYST) Pathologist [facility] VITAMIN B12 321 211 - 946 pg/mL [facility] Comment: It has been reported that between 5 to 10% of patients with values between 200 and 400 pg/mL may experience neuropsychiatric and hematologic abnormalities due to occult B12 deficiency. Less than 1% of patients with values above 400 pg/mL will have symptoms. Blood specimen (specimen) 05/22/2008 1:49 PM CYBER ANALYST 05/22/2008 2:25 PM CYBER ANALYST Omar Echols MD CHEMISTRY ORDERABLES Edited Performing Organization Address City/[facility] Co de Phone Number INTERFACE SYSTEM Refer to clinic/hospital department [facility] CLIA# [id number] [address] [place] [address] * TSH (05/22/2008 1:49 PM CYBER ANALYST) [facility] TSH 1.41 0.27 - 4.20 uU/mL [facility] Blood specimen (specimen) 05/22/2008 1:49 PM CYBER ANALYST 05/22/2008 2:25 PM CYBER ANALYST us Omar Echols MD CHEMISTRY ORDERABLES Final Result Performing Organization Address City/[facility] de Phone Number INTERFACE SYSTEM Refer to clinic/hospital department [facility] CLIA# [id number] [address] [place] [address] * SEDIMENTATION RATE (05/22/2008 1:49 PM CYBER ANALYST) [facility] ESR (SEDIMENTATION RATE) 18 0 - 30 mm/hr [facility] Blood specimen (specimen) 05/22/2008 1:49 PM CYBER ANALYST 05/22/2008 2:24 PM CYBER ANALYST us Omar Echols MD HEMATOLOGY ORDERABLES Final Result Performing Organization Address [facility] de Phone Number INTERFACE SYSTEM Refer to clinic/hospital department [facility] CLIA# [id number] [address] [place] [address] * (ABNORMAL) HEMOGLOBIN A1C (05/22/2008 1:49 PM CYBER ANALYST) 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
--- OUTSIDE RECORDS SUMMARY | 2025-04-26 00:46 | XMS_ITS | Encounter Summary ---
Author Organization [facility] Address [address] [place]: Epic Prelude [place]T [place] [address] Care Team Providers Care Stopping Builder Name Role Phone Jerome Dunn MD Primary Care Provider Encounter Details Date Type Department Care Team (Latest Contact Info) Description 11/30/2006 Orders Only Rubi Burgess MD Social History Tobacco Use Types Packs/Day Years Used Date Smoking Tobacco: Never Assessed Comments Unknown Sex and Gender Information Value Date Recorded Sex Assigned at Not on file Legal Sex Female 2:57 AM TISSUE COORDINATOR Gender Identity Not on file Sexual Orientation Straight 04/11/2023 9: 46 PM CDT documented as of this encounter Progress Notes * Interface, Mumtaz Stl Conv Transcriptions - 11/01/2007 5:03 PM CDT TIME:09:59 am PATIENT`S HOME PHONE: PATIENT`S WORK PHONE: PATIENT`S INSURANCE: [employer] [facility] WHO TOOK THE CALL: Karina Lazcano S GENERAL INFORMATION LAST VISIT: 09/30/06 PCP: joel. WHO CALLED: Pharmacy called. PHARMACY NUMBER: [phone] SECTION 1: REQUESTED ACTION dedra 11/30/06 at [...] on filedocumented in this encounter Care Teams Stopping Builder Relationship Specialty Start Date End Date Jerome Dunn MD [address] [place] [address] PCP - General Internal Medicine 10/30/20 documented as of this encounter
--- OUTSIDE RECORDS SUMMARY | 2025-04-26 00:46 | XMS_ITS | Encounter Summary ---
Author Organization [facility] Address [address] [place] [address] Care Team Providers Care Glass Forming Crew Member Name Role Phone Jerome Dunn MD Primary Care Provider Bandar Ferrera MD Unavailable [phone] Encounter Details Date Type Department Care Team (Late st Contact Info) Description 03/29/2025 Results Follow-Up [facility] [address] [place] [address] Jerome Dunn MD [address] [place] [address] [address] [place] [address] Basic metabolic panel Social History [...] on file Legal Sex Female 3:43 AM PRIMARY CLINICIAN Gender Identity Female 03/02/2021 12:42 PM CDT [...] on filedocumented in this encounter Care Teams Glass Forming Crew Member Relationship Specialty Start Date End Date Jerome Dunn MD PCP - General Internal Medicine 11/23/17 Bandar Ferrera MD Referring Physician Neurology 11/30/17 documented as of this encounter
--- OUTSIDE RECORDS SUMMARY | 2025-04-26 00:46 | XMS_ITS | Patient Health Record ---
Author Organization [facility] Address [address] [place] [address] Care Team Providers Care Bioprocessing Manufacturing Technician Name Role Phone Shaun KEANE, Jerome Primary Care Provider Unavaila ble Reason For Referral No Information Problems Problem Type SNOMED Code ICD Code Onset Dates Problem Status W/U Status Risk Notes Problem History of polyp of colon (situation) (223753238) Personal history of colonic polyps (Z86.010) Active confirmed Problem Diverticular disease of colon (769493933) Colonic diverticular disease (K57.30) Active confirmed Plan Of Treatment No Information Insurance Providers Payer Name Payer Address Payer Phone Subscriber Number Group Number Insured Name Patient Relationship to Insured Coverage Start Date Coverage End Date Medicare E2 [address] [address] [place] [address] [id number] Jayla kinseyJusta Self - patient is the insured [place] [employer] [place] Supplement F [address] [address] [id number] F Anuj-nadine kinseyJusta Self - patient is the insured 5
--- OUTSIDE RECORDS SUMMARY | 2025-04-26 00:46 | XMS_ITS | Encounter Summary ---
Author Organization [facility] Address [address] [place] [address] Care Team Providers Care Development Assistant Name Role Phone Jerome Dunn MD Primary Care Provider Encounter Details Date Type Department Care Team (Latest Contact Info) Description 10/17/2006 Outpatient [facility] Internal Medicine [facility] 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 Gender Identity Not on file Sexual Orientation [...] mg/dL INTERFACE SYSTEM 10/17/2006 9:57 AM CDT [facility] Payment SolutionsLanzaloya.comngsaOtterologybrenna CHEMISTRY ORDERABLES Edited Performing Organization Address City/[facility] de Phone Number INTERFACE SYSTEM Refer to clinic/hospital department * TSH (10/17/2006 9:57 AM CDT) TSH 1.56 0.27 - 4.20 uU/mL INTERFACE SYSTEM 10/17/2006 9:57 AM CDT us Cardicaprudolph Yippee ArtsngsaOtterologybrenna CHEMISTRY ORDERABLES Edited Performing Organization Address [facility] de Phone Number INTERFACE SYSTEM Refer to [...] and non- Americans is available on the [facility] at: [email or web address] Select: Lab Policies and Procedures Select: Reference Ranges - GFR 10/17/2006 9:57 AM CDT Pilairudolph Saemikaylasamran CHEMISTRY ORDERABLES Edited Performing Organization Address [facility] de Phone Number INTERFACE SYSTEM Refer to [...] classifications for lipids are available on the [facility] at: [email or web address] Select: Lab Policies and Procedures Select: Reference Ranges - Lipids 10/17/2006 9:57 AM CDT us Pilaipun Saengsamran CHEMISTRY ORDERABLES Edited Performing Organization Address [facility] de Phone Number INTERFACE SYSTEM Refer to clinic/hospital department documented in this encounter Visit Diagnoses Diagnosis Type II or unspecified type diabetes mellitus without mention of complication, uncontrolled- Primary documented in this encounter Care Teams Development Assistant Relationship Specialty Start Date End Date Jerome Dunn MD [address] [place] [phone] PCP - General Internal Medicine 10/30/20 documented as of this encounter
--- OUTSIDE RECORDS SUMMARY | 2025-04-26 00:46 | XMS_ITS | Encounter Summary ---
Author Organization [facility] Address 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
--- OUTSIDE RECORDS SUMMARY | 2025-04-26 00:46 | XMS_ITS | Encounter Summary ---
Author Organization [facility] Address [address] [place] [address] Care Team Providers Care Practicing Dermatologist Name Role Phone Jerome Dunn MD Primary [...] on file Legal Sex Female 2:57 AM PADDOCK JUDGE Gender Identity Not on file Sexual Orientation Straight 04/11/2023 9: 46 PM CDT documented as of this encounter Plan of Treatment Not on file documented as of this encounter Visit Diagnoses Diagnosis Pain in limb documented in this encounter Care Teams Practicing Dermatologist Relationship Specialty Start Date End Date Jerome Dunn MD [address] [place] [address] PCP - General Internal Medicine 10/30/20 documented as of this encounter
--- OUTSIDE RECORDS SUMMARY | 2025-04-26 00:46 | XMS_ITS | Encounter Summary ---
Author Organization [facility] Address [address] [place] [address] Care Team Providers Care Milling Machine Operator Gear Name Role Phone Jerome Dunn MD Primary Care Provider Encounter Details Date Type Department Care Team (Latest Contact Info) Description 12/03/2005 Outpatient [facility] Internal Medicine [facility] [address] [place] [address] Jairon Blankenship MD [address] [place] [address] DM w/o Complication Type II, Uncontrolled (Primary Dx) Social History Tobacco Use Types Packs/Day Years Used Date Smoking Tobacco: Never Assessed Comments Unknown Sex and Gender Information Value Date Recorded Sex Assigned at Not on file Legal Sex Female 2:57 AM COLLAR STARCHER Gender Identity Not on file Sexual Orientation [...] URINE ORDERABLES Final Result Performing Organization Address [facility] Phone Number INTERFACE SYSTEM Refer to clinic/hospital department * (ABNORMAL) HEMOGLOBIN A1C (12/03/2005 10:01 AM CDT) HEMOGLOBIN A1C 6.4(H) 3.9 - 6.1 % of Hgb INTERFACE SYSTEM GLUCOSE, MEAN BLOOD 127 mg/dL INTERFACE SYSTEM 12/03/2005 10:0 1 AM CDT Jairon Blankenship MD CHEMISTRY ORDERABLES Final Res ult Performing Organization Address [facility] Number INTERFACE SYSTEM Refer to clinic/hospital department * TSH (12/03/2005 10:01 AM CDT) TSH 2.02 0.27 - 4.20 uU/mL INTERFACE SYSTEM 12/03/2005 10:0 1 AM CDT Jairon Blankenship MD CHEMISTRY ORDERABLES Final Res ult Performing Organization Address [facility] de Phone Number INTERFACE SYSTEM Refer to clinic/hospital department * ALT (12/03/2005 10:01 AM CDT) ALT 22 0 - 31 U/L INTERFACE SYSTEM 12/03/2005 10:0 1 AM CDT Jairon Blankenship MD CHEMISTRY ORDERABLES Final Res ult Performing Organization Address [facility]/ZIP Co de Phone Number INTERFACE SYSTEM Refer [...] classifications for lipids are available on the [facility] Intranet at: [email or web address] Select: Lab Policies and Procedures Select: Reference Ranges - Lipids 12/03/2005 10:0 1 AM CDT us Jairon Blankenship MD CHEMISTRY ORDERABLES Final Res ult Performing Organization Address [facility] de Phone Number INTERFACE SYSTEM Refer to clinic/hospital department documented in this encounter Visit Diagnoses Diagnosis Type II or unspecified type diabetes mellitus without mention of complication, uncontrolled- Primary documented in this encounter Care Teams Milling Machine Operator Gear Relationship Specialty Start Date End Date Jerome Dunn MD [address] [address] PCP - General Internal Medicine 10/30/20 documented as of this encounter
--- OUTSIDE RECORDS SUMMARY | 2025-04-26 00:46 | XMS_ITS | Encounter Summary ---
Author Organization [facility] Address [address] [place] [address] Care Team Providers Care Parts Inspector Name Role Phone Jerome Dunn MD Primary [...] on file Legal Sex Female 2:57 AM ACCESSIONER Gender Identity Not on file Sexual Orientation Straight 04/11/2023 9: 46 PM CDT documented as of this encounter Plan of Treatment Not on file documented as of this encounter Procedures Procedure Name Priority Date/Time Associated Diagnosis Comments POC GLUCOSE Routine 08/10/2006 7:46 AM ACCESSIONER HEMOGLOBIN AND HEMATOCRIT Routine 08/09/2006 9:22 AM ACCESSIONER BASIC METABOLIC PANEL Routine 08/09/2006 9:22 AM ACCESSIONER documented in this encounter Results * (ABNORMAL) POC GLUCOSE (08/10/2006 7:46 AM ACCESSIONER) GLUCOSE POC 174(H) 65 - 99 mg/dL INTERFACE SYSTEM 08/10/2006 7:46 AM ACCESSIONER us Susu Oxigenelaura POINT OF CARE TESTING Edited Performing Organization Address [facility] de Phone Number INTERFACE SYSTEM Refer to clinic/hospital department * HEMOGLOBIN AND HEMATOCRIT (08/09/2006 9:22 AM ACCESSIONER) HEMOGLOBIN 13.3 11.8 - 14.8 g/dL INTERFACE SYSTEM HEMATOCRIT 39.0 35.5 - 44.0 % INTERFACE SYSTEM 08/09/2006 9:22 AM ACCESSIONER us Susu Felder HEMATOLOGY ORDERABLES Edited Performing Organization Address [facility] Phone Number INTERFACE SYSTEM Refer to clinic/hospital department * (ABNORMAL) BASIC METABOLIC PANEL (08/09/2006 9:22 AM ACCESSIONER) GLUCOSE 170(H) 65 - 99 mg/dL INTERFACE [...] the [facility] Intranet at: [email or web address] Select: Lab Policies and Procedures Select: Reference Ranges - GFR 08/09/2006 9:22 AM ACCESSIONER Susu Felder CHEMISTRY ORDERABLES Edited Performing Organization Address [facility] Co de Phone Number INTERFACE SYSTEM Refer to clinic/hospital department documented in this encounter Visit Diagnoses Diagnosis Postmenopausal bleeding- Primary documented in this encounter Care Teams Parts Inspector Relationship Specialty Start Date End Date Jerome Dunn MD [address] [address] PCP - General Internal Medicine 10/30/20 documented as of this encounter
--- OUTSIDE RECORDS SUMMARY | 2025-04-26 00:46 | XMS_ITS | Encounter Summary ---
Author Organization [facility] Address [address] [place] [address] Care Team Providers Care Manager Call Center Name Role Phone Jerome Dunn MD Primary Care Provider Bandar Ferrera MD Unavailable [phone] Reason for Visit * Reason Onset Date Comments request for orders 04/25/2025 Encounter Details Date Type Department Care Team (Late st Contact Info) Description 04/25/2025 Telephone [facility] [address] [address] Jerome Dunn MD [address] [place] [address] [address] [place] [address] request for orders Social History [...] on file Legal Sex Female 3:43 AM AQUATICS INSTRUCTOR Gender Identity Female 03/02/2021 12:42 PM CDT Sexual Orientation Straight 11/20/2018 1: 02 AM CDT documented as of this encounter Functional Status * BP Location Answer Date of Assessment Author Left arm 04/25/2025 10:32 AM AQUATICS INSTRUCTOR Suzi Bellamy OT * BP Location Answer Date of Assessment Author Left arm 04/25/2025 10:32 AM AQUATICS INSTRUCTOR Suzi Bellamy OT documented as of this encounter Miscellaneous Notes * Telephone Encounter - Gianna Gallego CMA - 04/25/2025 11:09 AM CST Ot and hh aide visit 2 times a week for 3 weeks. Verbal was given Lily [facility] TICS INSTRUCTOR documented in this encounter Plan of Treatment Not on file documented as of this encounter Visit Diagnoses Not on filedocumented in this encounter Care Teams Manager Call Center Relationship Specialty Start Date End Date Jerome Dunn MD PCP - General Internal Medicine 11/23/17 Bandar Ferrera MD Referring Physician Neurology 11/30/17 documented as of this encounter
--- OUTSIDE RECORDS SUMMARY | 2025-04-26 00:46 | XMS_ITS | Encounter Summary ---
Author Organization [facility] Address [address] [place] [address] Care Team Providers Care District Resource Officer Name Role Phone Jerome Dunn MD Primary Care Provider Encounter Details Date Type Department Care Team (Late st Contact Info) Description 09/17/2005 Outpatient [facility] Internal Medicine [facility] [address] [place] [address] Jairon Blankenship MD [address] [place] [address] Social History Tobacco Use Types Packs/Day Years Used Date Smoking Tobacco: Never Assessed Comments Unknown Sex and Gender Information Value Date Recorded Sex Assigned at Not on file Legal Sex Female 2:57 AM CAR HOP Gender Identity Not on file Sexual Orientation [...] on filedocumented in this encounter Care Teams District Resource Officer Relationship Specialty Start Date End Date Jerome Dunn MD [address] [address] PCP - General Internal Medicine 10/30/20 documented as of this encounter
--- OUTSIDE RECORDS SUMMARY | 2025-04-26 00:46 | XMS_ITS | Encounter Summary ---
Author Organization [facility] Address [address] [place] [address] Care Team Providers Care Impregnator Helper Name Role Phone Jerome Dunn MD Primary [...] on file Legal Sex Female 2:57 AM ACCOUNTS RECEIVABLE SPECIALIST Gender Identity Not on file Sexual Orientation Straight 04/11/2023 9: 46 PM CDT documented as of this encounter Plan of Treatment Not on file documented as of this encounter Visit Diagnoses Diagnosis Lumbago documented in this encounter Care Teams Impregnator Helper Relationship Specialty Start Date End Date Jerome Dunn MD [address] [place] [address] PCP - General Internal Medicine 10/30/20 documented as of this encounter
--- OUTSIDE RECORDS SUMMARY | 2025-04-26 00:46 | XMS_ITS | Encounter Summary ---
Author Organization [facility] Address [address] [place] [address] Care Team Providers Care Treating Plant Supervisor Name Role Phone Jerome Dunn MD Primary Care Provider Encounter Details Date Type Department Care Team (Late st Contact Info) Description 01/03/2007 Outpatient [facility] Internal Medicine [facility] [address] [place] [address] Bere arizmendi, MD Rubi Social History Tobacco Use Types Packs/Day Years Used Date Smoking Tobacco: Never Assessed Comments Unknown Sex and Gender Information Value Date Recorded Sex Assigned at Not on file Legal Sex Female 2:57 AM SEAFOOD FARMER Gender Identity Not on file Sexual Orientation [...] on filedocumented in this encounter Care Teams Treating Plant Supervisor Relationship Specialty Start Date End Date Jerome Dunn MD [address] [place] [address] PCP - General Internal Medicine 10/30/20 documented as of this encounter
--- OUTSIDE RECORDS SUMMARY | 2025-04-26 00:46 | XMS_ITS | Clinical Summary ---
Author Organization [facility] [employer] Address [address] [place] [address] Care Team Providers Care Candle Wrapper Name Role Phone Tammy Lambert MD Primary Care Provider [phone] Source Comments [facility] [employer],non-[facility] Affiliates and Associated Physician Practices is amultiple site organization consisting of ambulatory clinics and hospital sitesin [place], [place], [place] and [place]. This disclosure is being madepursuant to the Care Everywhere program and may not contain all information available regarding this patient. Last updated 18.[facility] [employer] Allergies Active Allergy Reactions Criticality Noted Date [...] on file Legal Sex Female 4:25 AM FIELD SALES ENGINEER Gender Identity Not on file Sexual Orientation [...] patient's age to complete this topic Insurance [facility] [place] [address] MEDICARE Care Teams Candle Wrapper Relationship Specialty Start Date End Date Tammy Lambert MD [address] [place] [address] PCP - General Internal Medicine 11/09/16
--- OUTSIDE RECORDS SUMMARY | 2025-04-26 00:46 | XMS_ITS | Encounter Summary ---
Author Organization [facility] Address [address] [place] [address] Care Team Providers Care Contracts Director Name Role Phone Jerome Dunn MD Primary Care Provider Encounter Details Date Type Department Care Team (Late st Contact Info) Description 08/09/2006 Outpatient Historical [facility] Support Serv. (Adt Cardiology-[facility]) [address] [place] [address] Tamra New MD Social History Tobacco Use Types Packs/Day Years Used Date Smoking Tobacco: Never Assessed Comments Unknown Sex and Gender Information Value Date Recorded Sex Assigned at Not on file Legal Sex Female 2:57 AM MECHANICAL ENGINEERING ADVISOR Gender Identity Not on file Sexual Orientation Straight 04/11/2023 9: 46 PM CDT documented as of this encounter Plan of Treatment Not on file documented as of this encounter Visit Diagnoses Not on filedocumented in this encounter Care Teams Contracts Director Relationship Specialty Start Date End Date Jerome Dunn MD [address] [place] [address] PCP - General Internal Medicine 10/30/20 documented as of this encounter
--- OUTSIDE RECORDS SUMMARY | 2025-04-26 00:46 | XMS_ITS | Encounter Summary ---
Author Organization [facility] Address [address] [place] [address] Care Team Providers Care Metallurgical Technician Name Role Phone Jerome Dunn MD Primary Care Provider Encounter Details Date Type Department Care Team (Late st Contact Info) Description 01/03/2006 Outpatient [facility] Internal Medicine [facility] [address] [place] [address] Bere arizmendi, MD Rubi Social History Tobacco Use Types Packs/Day Years Used Date Smoking Tobacco: Never Assessed Comments Unknown Sex and Gender Information Value Date Recorded Sex Assigned at Not on file Legal Sex Female 2:57 AM DIETARY CLERK Gender Identity Not on file Sexual [...] on filedocumented in this encounter Care Teams Metallurgical Technician Relationship Specialty Start Date End Date Jerome Dunn MD [address] [place] [address] PCP - General Internal Medicine 10/30/20 documented as of this encounter
--- OUTSIDE RECORDS SUMMARY | 2025-04-26 00:46 | XMS_ITS | Clinical Summary ---
Author Organization [facility] Address [address] [place] [address] Phone Care Team Providers Care Impregnator Helper Name [...] on file Legal Sex Female 2:57 AM FLOOR INSTALLATION MECHANIC Gender Identity Not on file Sexual Orientation Straight 04/11/2023 9: 46 PM CDT Occupation Industry Job Start Date Job End Date Not on file Not on file Not on file Not on file Last Filed Vital Signs Vital Sign Reading Time Taken Comments Blood Pressure 142/73 04/28/2022 10:14 AM FLOOR INSTALLATION MECHANIC Pulse 65 04/28/2022 9:41 AM FLOOR INSTALLATION MECHANIC Temperature 36.7 C (98.1 F) 03/08/2014 9:52 AM CDT Respiratory Rate 16 03/08/2014 9:52 AM CDT Oxygen Saturation 98% 01/05/2013 1:53 PM CDT Inhaled Oxygen Concentration - - Weight 74.8 kg (165 lb) 06/30/2023 2:56 PM FLOOR INSTALLATION MECHANIC Height 162.6 cm (5' 4) 06/30/2023 2:56 PM FLOOR INSTALLATION MECHANIC Body Mass Index 28.32 06/30/2023 2:56 PM FLOOR INSTALLATION MECHANIC Plan of Treatment Health Maintenance Due Date [...] years Discontinued Medical Devices Implanted Type Area Manager Decision Support Device Identifier Shelf Expiration Date Model / Serial / Lot Log [id number] - Cement - 1 - Cement Yoakum G-Hv 40g [id number] Implanted:Qty: 1 on 07/27/2011 at [facility] Cement Right: Knee [employer] 03/13/2013 [id number] / / [id number] Fem Vanguard Distal Peg [id number] Implanted:Qty: 1 on 07/27/2011 at [facility] K[place] Right: Knee [employer] 04/13/2021 [id number] / / [id number] Patella 3peg Series A [id number] Implanted:Qty: 1 on 07/27/2011 at [facility] K[place] Right: Knee [employer] 06/13/2016 [id number] / / [id number] Plate Tib Cocr Finned 71mm [id number] Implanted:Qty: 1 on 07/27/2011 at [facility] Knee Right: Knee [employer] 04/13/2021 [id number] / / [id number] Comp Fem Vng Ps Sz65 Rt [id number] Implanted:Qty: 1 on 07/27/2011 at [facility] Knee Right: Knee [employer] 05/13/2021 [id number] / / [id number] Bearing Tib Vng 10mm 71/75mm [id number] Implanted:Qty: 1 on 07/27/2011 at [facility] Knee Right: Knee [employer] 01/12/2016 [id number] / / [id number] Procedures Procedure Name Priority Date/Time Associated Diagnosis Comments POC HEMOGLOBIN A1C Routine 03/08/2014 12 :37 PM CDT DM (diabetes mellitus) type II controlled, neurological manifestation (CMS/HCC) MICROALBUMIN/CREATI NINE RATIO, RANDOM UR Routine 08/08/2013 3:26 PM FLOOR INSTALLATION MECHANIC DM (diabetes mellitus) type II controlled, neurological manifestation (CMS/HCC) LIPID PANEL Routine 05/16/2013 11:14 AM FLOOR INSTALLATION MECHANIC XR DEXA BONE DENSITY AXIAL 1 OR MORE SITES Routine 11/11/2010 11:31 AM CDT Loss of height ENDOSCOPY, COLON, SCREENING Routine 10/01/2009 from Last 3 Months or Most Recently Relevant to Health Maintenance Results * POC HEMOGLOBIN A1C (03/08/2014 12:37 PM CDT) Pathologist [facility] HGB A1C POC 5.7 4.0 - 6.0 % [facility] Capillary blood specimen (specimen) 03/08/2014 12:37 PM CDT Tammy Lambert MD POINT OF CARE TESTING Final Result [facility] * MICROALBUMIN/CREATININE RATIO, RANDOM UR (08/08/2013 3:26 PM FLOOR INSTALLATION MECHANIC) Pathologist [facility] MICROALBUMIN/C REAT RATIO, UR 28 0 - 29 mg/g creatinine [facility] Urine specimen (specimen) 08/08/2013 3:26 PM FLOOR INSTALLATION MECHANIC 08/08/2013 7:38 PM FLOOR INSTALLATION MECHANIC Comment:URINE Tammy Lambert MD URINE ORDERABLES Mahi l Result [facility] CLIA# [id number] [address] [place] [id number] * LIPID PANEL (05/16/2013 11:14 AM FLOOR INSTALLATION MECHANIC) Pathologist [facility] CHOLESTEROL 161 125 - 200 mg/dL [facility] Comment: Test Performed at: [employer] [facility] [address] [place] [address] JACQUIE GURROLA DO,MPH HDL 58 > OR = 46 mg/dL [facility] TRIGLYCERIDE 122 <150 mg/dL [employer] [facility] LDL CALCULATED 79 <130 mg/dL (calc) [facility] Comment: Desirable range <100 mg/dL for patients with CHD or diabetes and <70 mg/dL for diabetic patients with known heart disease. CHOL/HDL RATIO 2.8 < OR = 5.0 (calc) [employer] [facility] TOTAL NON-HDL CHOL(LDL+VLDL) 103 mg/dL (calc) [employer] [facility] Comment: Target for non-HDL cholesterol is 30 mg/dL higher than LDL cholesterol target. 05/16/2013 11:1 4 AM FLOOR INSTALLATION MECHANIC Tammy Lambert MD CHEMISTRY ORDERABLES Final Result INTERFACE SYSTEM Refer to clinic/hospital department [facility] [address] [address] * XR DEXA BONE DENSITY AXIAL 1 [...] Maintenance Insurance MEDICARE PART A AND B [facility] Advance Directives For more information, please contact: [phone] * Full Code (Latest Code Status on File) Date Activated Date Inactivated Comments 07/27/2011 11:24 AM 07/30/2011 2:48 PM * Full Code Date Activated Date Inactivated Comments 07/27/2011 5:32 AM 07/27/2011 11:24 AM Care Teams Impregnator Helper Relationship Specialty Start Date End Date Jerome Dunn MD [address] [place] [address] PCP - General Internal Medicine 10/30/20
--- OUTSIDE RECORDS SUMMARY | 2025-04-26 00:46 | XMS_ITS | Encounter Summary ---
Author Organization [facility] Address [address] [place] [address] Care Team Providers Care Museum Specialist Name Role Phone Jerome Dunn MD Primary Care Provider Encounter Details Date Type Department Care Team (Latest Contact Info) Description 07/24/2008 Outpatient Historical [facility] [facility] Usama Hodge MD [address] [place] [address] [address] [place] [address] Abn Findings-Lung Field Social History Tobacco Use Types Packs/Day Years Used Date Smoking Tobacco: Never Alcohol Use Standard Drinks/Week Comments Yes 0 (1 standard drink = 0.6 oz pur e alcohol) Comments No Sex and Gender Information Value Date Recorded Sex Assigned at Not on file Legal Sex Female 2:57 AM PARKING REGULATION ENFORCEMENT OFFICER Gender Identity Not on file Sexual Orientation Straight 04/11/2023 9: 46 PM CDT documented as of this encounter Plan of Treatment Not on file documented as of this encounter Procedures Procedure Name Priority Date/Time Associated Diagnosis Comments CT CHEST WO CONTRAST Timed Study 07/24/2008 9:27 AM PARKING REGULATION ENFORCEMENT OFFICER documented in this encounter Results * CT CHEST WO CONTRAST (07/24/2008 9:27 AM PARKING REGULATION ENFORCEMENT OFFICER) Anatomical Region Laterality Modality Chest Other 07/24/2008 9:27 AM PARKING REGULATION ENFORCEMENT OFFICER Narrative 07/24/2008 2:59 PM PARKING REGULATION ENFORCEMENT OFFICER [address] [place], [place] [address] Admit Date: 07/24/2008 NASIR PATIÑO Sex: F Admit Prov: USAMA HODGE Date: 1945 Primary Care Prov: SARAH ROMO CMRN: [id number] Room: [facility] SSN: [address] [place] [address] IMAGING SERVICES Ordering Prov: N/A Accession Number: [id number] Interpretation CT CHEST WITHOUT CONTRAST, 07/24/08 History: [...] LE Procedure Note Casey Martinez - 07/24/2008 [facility] [address] [place], [place] [address] Admit Date: 07/24/2008 NASIR PATIÑO Sex: F Admit Prov: USAMA HODGE Date:1945 Primary Care Prov: SARAH ROMO CMRN: [id number] Room: [facility] SSN: [id number] IMAGING SERVICES Ordering Prov: N/A Interpretation CT [...] field documented in this encounter Care Teams Museum Specialist Relationship Specialty Start Date End Date Jerome Dunn MD [address] [place] [address] PCP - General Internal Medicine 10/30/20 documented as of this encounter
--- OUTSIDE RECORDS SUMMARY | 2025-04-26 00:46 | XMS_ITS | Encounter Summary ---
Author Organization [facility] Address [address] [place] [address] Care Team Providers Care Faculty Research Physician Name Role Phone Jerome Dunn MD Primary Care Provider Encounter Details Date Type Department Care Team (Late st Contact Info) Description 11/26/2005 Outpatient [facility] Internal Medicine [facility] [address] [place] [address] Jairon Blankenship MD [address] [place] [address] Social History Tobacco Use Types Packs/Day Years Used Date Smoking Tobacco: Never Assessed Comments Unknown Sex and Gender Information Value Date Recorded Sex Assigned at Not on file Legal Sex Female 2:57 AM INTERVENTION ANALYST Gender Identity Not on file Sexual [...] on filedocumented in this encounter Care Teams Faculty Research Physician Relationship Specialty Start Date End Date Jerome Dunn MD [address] [place] [address] PCP - General Internal Medicine 10/30/20 documented as of this encounter
--- OUTSIDE RECORDS SUMMARY | 2025-04-26 00:46 | XMS_ITS | Encounter Summary ---
Author Organization [facility] Address [address] [place] [address] Care Team Providers Care Dial Brusher Name Role Phone Jerome Dunn MD Primary Care Provider Encounter Details Date Type Department Care Team (Latest Contact Info) Description 02/13/2008 Outpatient Historical [facility] Jairon Reyna MD [address] [place] [address] DM w/o Complication Type II, Uncontrolled Social History Tobacco Use Types Packs/Day Years Used Date Smoking Tobacco: Never Alcohol Use Standard Drinks/Week Comments Yes 0 (1 standard drink = 0.6 oz pur e alcohol) Comments No Sex and Gender Information Value Date Recorded Sex Assigned at Not on file Legal Sex Female 2:57 AM RATCHET SETTER Gender Identity Not on file Sexual Orientation Straight 04/11/2023 9: 46 PM CDT documented as of this encounter Plan of Treatment Not on file documented as of this encounter Visit Diagnoses Diagnosis Type II or unspecified type diabetes mellitus without mention of complication, uncontrolled documented in this encounter Care Teams Dial Brusher Relationship Specialty Start Date End Date Jerome Dunn MD [address] [address] PCP - General Internal Medicine 10/30/20 documented as of this encounter
--- OUTSIDE RECORDS SUMMARY | 2025-04-26 00:46 | XMS_ITS | Encounter Summary ---
Author Organization [facility] Healthcare Address [address] [place] [address] Care Team Providers Care Mold Cleaner Name Role Phone Jerome Dunn MD Primary Care Provider Bandar Ferrera MD Unavailable [phone] Reason for Visit * Auth/Cert (Routine) Specialty Diagnoses / Procedures Referred By Contac t Referred To Contact Referral ID Status Reason Start Date Expiration Date Visits Re quested Visits Authorized [id number] 1 1 Encounter Details Date Type Department Care Team (Late st Contact Info) Description 04/25/2025 Home Care Visit [facility] [address] [place] [address] Ya Carrero RN SN TRIAGE ENCOUNTER Social History Tobacco Use Types Packs/Day Years [...] on file Legal Sex Female 3:43 AM CASEWORKER INTAKE Gender Identity Female 03/02/2021 12:42 PM CDT Sexual Orientation Straight 11/20/2018 1: 02 AM CDT documented as of this encounter Functional Status * BP Location Answer Date of Assessment Author Left arm 04/25/2025 10:32 AM CASEWORKER INTAKE Suzi Bellamy OT * BP Location Answer Date of Assessment Author Left arm 04/25/2025 10:32 AM CASEWORKER INTAKE Suzi Bellamy OT documented as of this encounter Miscellaneous Notes * Triage Note - Ya Carrero RN - 04/25/2025 10:16 PM CST Patcher Wood Welder: Romy Relationship to patient: daughter Phone number of contact lens technician: [phone] Return call time: 10:17pm Communication details: RE: P/T BELA IS SUPPOSED TO BE HERE TOMORROW, BUT WE NEED TO CANCEL. MY MOMFELL AND I HAVE HER AT [facility]. ONCE I KNOW MORE I WILL CALL TO RESCHEDULE. Returned call to Romy who states patient fell and has a big bump on her head. Took her to the ER andwould like to cancel PT visit tomorrow. Would like to request that Bela PT call to reschedule. Instructed Triage will notify Bela and the care team. Verbalized understanding. Follow Up Notified care team, Linda Hammond, LISA charge nurses, and [place] schedulers WORKER INTAKE documented in this encounter Plan of Treatment Not on file documented as of this encounter Visit Diagnoses Not on filedocumented in this encounter Home Health Visit - Care Plan Visit Details Visit Type -SN Triage Encoun ter Discipline -Longterm Problems Problem Description Start Date Status Goals Interve ntions Pressure Prevention Disciplines: Skilled Disciplines Pressure Prevention 04/03/2025 Active 1 goal linked to scheduled/docume nted intervention 1 goal intervention scheduled/documen cristy in this visit Monitor patient's vital signs every home health visit Disciplines: Skilled Disciplines, SN, PT, OT, AUTO TRANSMISSION MECHANIC, CONDUIT REAMER OPERATOR Monitor patient's vital signs every home health visit. 04/03/2025 Active 1 goal linked to scheduled/docume nted intervention 1 goal intervention scheduled/documen cristy in this visit Infection Prevention Disciplines: Skilled Disciplines Infection Prevention 04/03/2025 Active 1 goal linked to scheduled/docume nted intervention 2 goal interventions scheduled/documen cristy in this visit Fall Precautions/Safe ty Concerns Disciplines: Skilled Disciplines Fall precautions and general safety 04/03/2025 Active 1 goal linked to scheduled/docume nted intervention 1 goal intervention scheduled/documen cristy in this visit Knowledge Deficit - Other Disease Process and Management Disciplines: Skilled Disciplines Other disease process and management not already specified White Matter Disease 04/03/2025 Active 1 goal linked to scheduled/docume nted intervention 2 goal interventions scheduled/documen cristy in this visit Depression Disciplines: Skilled Disciplines Depression 04/03/2025 Active 1 goal linked to scheduled/docume nted intervention 3 goal interventions scheduled/documen cristy in this visit Learning/Teachin g Needs - Hypertension Disciplines: Longterm Lack of knowledge regarding medical regimen related to controlling/manag ing hypertension 04/03/2025 Active 1 goal linked to scheduled/docume nted intervention 4 goal interventions scheduled/documen cristy in this visit Goals Goal Associated Problem Outcome Goal Met? Visit Notes Prevent development of pressure injuries Description: FDC goal: The patient will maintain intact skin and avoid the development of pressure injuries within 1 month Short term goal: The patient/caregiver will understand and adhere to pressure prevention interventions within 2 visits Pressure Prevention No Measure vital signs during every home health visit during episode of care Description: Home hr assistant to measure vital signs during every home [...] when to report to physician. Depression No Demonstrate adequate knowledge of care related to Hypertension Description: Patient/Caregiver will demonstrate adequate knowledge as evidenced by the ability to describe disease process and effects, signs/symptoms, risk factors and lifestyle modification requirements by the end of the episode of care. Learning/Teaching Needs - Hypertension No Interventions Intervention Associated Problem/Goal Status Variance [...] depression. Problem:Depression Goal:Demonstrate knowledge of depression Scheduled Instruct on blood pressure daily log Description: Teach patient/family how to use cuff. SN to develop blood pressure diary for patient to record daily readings. Instruct patient to monitor and record blood pressure on daily log. Agency standard parameters: MD to be notified- Dr. Dunn Problem:Learning/Teaching Needs - Hypertension Goal:Demonstrate adequate knowledge of care related to Hypertension Scheduled Instruct diet Description: Instruct patient/caregiver on low salt diet. Problem:Learning/Teaching Needs - Hypertension Goal:Demonstrate adequate knowledge of care related to Hypertension Scheduled Instruct on stress reduction Description: Instruct patient/caregiver in how stress impacts health and in methods to reduce stress. Problem:Learning/Teaching Needs - Hypertension Goal:Demonstrate adequate knowledge of care related to Hypertension Scheduled Instruct on the risk factors of hypertension Description: Instruct patient/caregiver in disease process and effects of termite control servicer uncontrolled hypertension. Problem:Learning/Teaching Needs - Hypertension Goal:Demonstrate adequate knowledge of care related to Hypertension Scheduled documented in this encounter Care Teams Mold Cleaner Relationship Specialty Start Date End Date Jerome Dunn MD PCP - General Internal Medicine 11/23/17 Bandar Ferrera MD Referring Physician Neurology 11/30/17 documented as of this encounter
--- OUTSIDE RECORDS SUMMARY | 2025-04-26 00:46 | XMS_ITS | Encounter Summary ---
Author Organization [facility] Address [address] [place] [address] Care Team Providers Care Extrusion Operator Name Role Phone Jerome Dunn MD [...] on file Legal Sex Female 2:57 AM HOME HEALTH CARE SOCIAL WORKER Gender Identity Not on file Sexual Orientation Straight 04/11/2023 9: 46 PM CDT documented as of this encounter Plan of Treatment Not on file documented as of this encounter Visit Diagnoses Diagnosis Type II or unspecified type diabetes mellitus without mention of complication, not stated as uncontrolled documented in this encounter Care Teams Extrusion Operator Relationship Specialty Start Date End Date Jerome Dunn MD [address] [place] [address] PCP - General Internal Medicine 10/30/20 documented as of this encounter
--- OUTSIDE RECORDS SUMMARY | 2025-04-26 00:46 | XMS_ITS | Encounter Summary ---
Author Organization [facility] Address [address] [place] [address] Care Team Providers Care Translator And Interpreter Name Role Phone Jerome Dunn MD Primary Care Provider Encounter Details Date Type Department Care Team (Latest Contact Info) Description 11/04/2004 Outpatient Historical [facility] Susu Stringer SCREENING MAMM-MAILG NEOPL-OTHER (Primary Dx) Social History Tobacco Use Types Packs/Day Years Used Date Smoking Tobacco: Never Assessed Comments Unknown Sex and Gender Information Value Date Recorded Sex Assigned at Not on file Legal Sex Female 2:57 AM CARE SERVICES MANAGER Gender Identity Not on file Sexual Orientation Straight 04/11/2023 9: 46 PM CDT documented as of this encounter Plan of Treatment Not on file documented as of this encounter Visit Diagnoses Diagnosis Other screening mammogram- Primary documented in this encounter Care Teams Translator And Interpreter Relationship Specialty Start Date End Date Jerome Dunn MD [address] [id number] PCP - General Internal Medicine 10/30/20 documented as of this encounter
--- OUTSIDE RECORDS SUMMARY | 2025-04-26 00:46 | XMS_ITS | Encounter Summary ---
Author Organization [facility] Address [address] [place] [address] Care Team Providers Care Agency Recruiter Name Role Phone Jerome Dunn MD Primary Care Provider Encounter Details Date Type Department Care Team (Late st Contact Info) Description 12/22/2005 Outpatient [facility] Internal Medicine 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
--- OUTSIDE RECORDS SUMMARY | 2025-04-26 00:46 | XMS_ITS | Encounter Summary ---
Author Organization [facility] Address 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 Gender Identity Not on file Sexual Orientation [...] AM CDT Narrative 11/13/2007 9:37 AM CDT [address] [address] Admit Date: 11/10/2007 KAYLYN NASIR Sex: F Admit Prov: SUSU MULLINS Date: 1945 Primary Care Prov: SARAH ROMO CMRN: [id number] Room: BRENDANFarhat N: [id number] IMAGING SERVICES Ordering Prov: SUSU MULLINS Accession Number: [id number] Interpretation BILATERAL DIGITAL MAMMOGRAM WITH COMPUTER-ASSISTED DIAGNOSIS [...] CO Procedure Note Yamilex Castaneda - 11/13/[address] [address] Admit Date: 11/10/2007 NASIR PATIÑO Sex: F Admit Prov: SUSU MULLINS Date:1945 Primary Care Prov: SARAH ROMO CMRN: [id number] Room: Farhat N: [id number] IMAGING SERVICES Ordering Prov: SUSU MULLINS Interpretation [...] mammogram documented in this encounter Care Teams Caustic Preparer Relationship Specialty Start Date End Date Jerome Dunn MD [address] [place] [address] PCP - General Internal Medicine 10/30/20 documented as of this encounter
--- OUTSIDE RECORDS SUMMARY | 2025-04-26 00:46 | XMS_ITS | Encounter Summary ---
Author Organization [facility] Address 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
--- OUTSIDE RECORDS SUMMARY | 2025-04-26 00:46 | XMS_ITS | Clinical Summary ---
Author Organization [facility] Address [address] [place] [address] Phone Care Team Providers Care Geospatial Program Management Officer Name Role Phone Unavailable Primary Care Provider Unavailabl e Allergies No known active allergies Medications OTHERIndications :Acute low back pain Take 5 mg by mouth daily at bedtime. medprox Active GLUCOPHAGE 1,000 mg Oral TabIndications:A cute low back pain Take 1,000 mg by mouth 2 times daily with meals. Active VITAMIN B COMPLEX POIndications:Ac [place] low back pain Take 1 Tab by [...] on file Legal Sex Female 7:11 AM JACK SETTER Gender Identity Not on file Sexual Orientation Not on file Last Filed Vital Signs Vital Sign Reading Time Taken Comments Blood Pressure 138/88 06/20/2008 7:14 PM JACK SETTER Pulse 106 06/20/2008 5:53 PM JACK SETTER Temperature 36.8 C (98.2 F) 06/20/2008 5:53 PM JACK SETTER Respiratory Rate 18 06/20/2008 5:53 PM JACK SETTER Oxygen Saturation 96% 06/20/2008 5:53 PM JACK SETTER Inhaled Oxygen Concentration - - Weight 97.5 kg (215 lb) 06/20/2008 5:53 PM JACK SETTER Height - - Body Mass Index - - Plan of Treatment Health Maintenance Due Date Last Done Comments DTAP/TDAP/TD VACCINES (1 - Tdap) 1962 PNEUMOCOCCAL VACCINE 50+ YEARS (1 of 1 - PCV) 04/26/19 93 ZOSTER VACCINE (1 of 2) 1993 OSTEOPOROSIS SCREENING 2008 RSV VACCINE (60+ or ) (1 - 1-dose 75+ series) 2018 INFLUENZA VACCINE (#1) 2025 Insurance [employer]
--- OUTSIDE RECORDS SUMMARY | 2025-04-26 00:46 | XMS_ITS | Clinical Summary ---
Author Organization [facility] Address [address] [place] [address] Care Team Providers Care Sr. Manager Marketing Name Role Phone Jerome Dunn MD Primary Care Provider Bandar Ferrera MD Unavailable [phone] Allergies Active Allergy Reactions Criticality Noted Date [...] (04/16/2019): Added automatically from request for surgery [id number] Foot drop, left 04/03/2019 Spinal stenosis, lumbar lisa on, with neurogenic claudication 02/15/2019 Overview (02/15/2019): Added automatically from request for surgery [id number] Lumbar radiculopathy 02/15/2019 Overview (02/15/2019): Added automatically from request for surgery [id number] Primary osteoarthritis of left knee 12/21/2018 Overview (12/21/2018): Added automatically from request for surgery [id number] Pure hypercholesterolemia 09/06/2018 B12 deficiency 09/06/2018 Vitamin [...] (diabetes mellitus) type II controlled, neurological manifestation ([facility]) 09/29/201102/2022 Encounters Date Type Department Care Team Description 04/25/2025 10:00 AM FUR OPERATOR Home Care Visit [address] [place] [address] Suzi Bellamy, OT OT REASSESSMENT 04/25/2025 Home Care Visit [address] [place] [address] Ya Carrero RN SN TRIAGE ENCOUNTER 04/25/2025 Telephone [facility] [address] [place] [address] [address] [place] [address] Jerome Dunn MD request for orders 04/24/2025 1:15 PM FUR OPERATOR Home Care Visit [address] [place] [address] Nancie Naranjo, LEAH FLIGHT INSPECTOR HOME VISIT 04/23/2025 3:00 PM FUR OPERATOR Home Care Visit [address] [place] [address] Julia Barillas COTA OT HOME VISIT 04/23/2025 2:33 PM FUR OPERATOR - 04/23/2025 11:59 PM FUR OPERATOR Hospital Encounter [facility] [address] [place] [address] Discharge Disposition: Discharge to home or self care 04/23/2025 12:00 PM FUR OPERATOR Home Care Visit [address] [place] [address] Janet No, ARMAAN SN DISCIPLINE DISCHARGE 04/23/2025 11:00 AM FUR OPERATOR Home Care Visit [address] [place] [address] Ayse Daugherty, PT PT HOME VISIT 04/23/2025 Telephone [facility] [address] [facility] [address] [place] [address] Jerome Dunn MD Request For Order(s) 04/22/2025 Home Care Visit [address] [place] [address] Winifred Wiley, ARMAAN SN TRIAGE ENCOUNTER 04/19/2025 3:00 PM FUR OPERATOR Home Care Visit [address] [place] [address] Ayse Daugherty, PT PT HOME VISIT 04/19/2025 1:00 PM FUR OPERATOR Home Care Visit [address] [place] [address] Julia Barillas COTA OT HOME VISIT 04/18/2025 3:30 PM FUR OPERATOR Home Care Visit [address] [place] [address] Janet No, ARMAAN SN HOME VISIT 04/17/2025 2:30 PM FUR OPERATOR Home Care Visit [address] [place] [address] Nancie Naranjo, FLIGHT INSPECTOR FLIGHT INSPECTOR HOME VISIT 04/17/2025 1:45 PM FUR OPERATOR Home Care Visit [address] [place] [address] Julia Barillas COTA OT HOME VISIT 04/16/2025 12:30 PM FUR OPERATOR Home Care Visit [address] [place] [address] Ayse Daugherty, PT PT HOME VISIT 04/15/2025 Home Care Visit [address] [place] [address] Winifred Wiley, ARMAAN SN TRIAGE ENCOUNTER 04/12/2025 3:00 PM CDT Home Care Visit [address] [place] [address] Jenise Moreno, PT PT HOME VISIT 04/11/2025 3:00 PM CDT Home Care Visit [address] [place] [address] Julia Barillas COTA OT HOME VISIT 04/10/2025 1:30 PM CDT Home Care Visit [address] [place] [address] Janet No, ARMAAN SN HOME VISIT 04/10/2025 11:30 AM CDT Home Care Visit [address] [place] [address] Nancie Naranjo, FLIGHT INSPECTOR FLIGHT INSPECTOR INITIAL EVALUATION 04/10/2025 Telephone [facility] [address] [place] [address] [place] [address] Jerome Dunn MD Spoke With Home Health Provider 04/09/2025 10:30 AM CDT Home Care Visit [address] [place] [address] Ayse Daugherty, PT PT INITIAL EVALUATION 04/08/2025 2:00 PM CDT Home Care Visit [address] [place] [address] Suzi Bellamy, OT OT HOME VISIT 04/08/2025 Home Care Visit [address] [place] [address] Janet No, RN CASE COMMUNICATION 04/08/2025 Home Care Visit [address] [place] [address] Ayse Daugherty, PT TELEPHONE ENCOUNTER 04/04/2025 2:00 PM CDT Home Care Visit [address] [place] [address] Suzi Bellamy, OT OT INITIAL EVALUATION 04/03/2025 1:00 PM CDT Home Care Visit [address] [place] [address] Janet No, ARMAAN SN OASIS START OF CARE 04/03/2025 Plan of Care Documentation [address] [place] [address] 04/02/2025 Telephone [facility] [address] [place] [address] [place] [phone] Dulce Vickers, ARMAAN 04/02/2025 Telephone [facility] [address] [place] [address] [place] [phone] Dulce Vickers, ARMAAN 03/29/2025 2:35 PM CDT - 03/29/2025 11:59 PM CDT Hospital Encounter [facility] [address] [place] [address] [place] (nonalcoholic steatohepatitis) Discharge Disposition: Discharge to home or self care 03/29/2025 1:40 PM CDT Office Visit [facility] [address] [place] [address] [address] [place] [address] Jerome Dunn MD Immunization due (Primary Dx); Essential hypertension, benign; Leg weakness, bilateral; Other polyneuropathy; Spinal stenosis, lumbar region, with neurogenic claudication; [place] (nonalcoholic steatohepatitis); Hepatic fibrosis, unspecified 03/29/2025 Results Follow-Up [facility] [facility] [address] [place] [address] Jerome Dunn MD Basic metabolic panel [...] on file Legal Sex Female 3:43 AM FUR OPERATOR Gender Identity Female 03/02/2021 12:42 PM CDT Sexual Orientation Straight 11/20/2018 1: 02 AM CDT Last Filed Vital Signs Vital Sign Reading Time Taken Comments Blood Pressure 132/68 04/25/2025 10:32 AM FUR OPERATOR Pulse 73 04/25/2025 10:32 AM FUR OPERATOR Temperature 36.4 C (97.5 F) 04/25/2025 10:32 AM FUR OPERATOR Respiratory Rate 18 04/25/2025 10:32 AM FUR OPERATOR Oxygen Saturation 96% 04/25/2025 10:32 AM FUR OPERATOR Inhaled Oxygen Concentration - - Weight 78 [...] history exists Well Visit 65+ 11/14/2025 11/14/2024, 0610/2023, 11/16/2023, Additional history exists Pneumococcal vaccine 65+ Completed 10/20/2016, 10/11 Influenza Vaccine Discontinued 03/29/2025, , 05/31/2022, Additional history exists DTaP/Tdap/Td Vaccine Discontinued Medical Devices Implanted Type Area Clinic Clerk Device Identifier Shelf Expiration Date Model / Serial / Lot Rt Total Knee Athroplasty Knee Procedures Procedure Name Priority Date/Time Associated Diagnosis Comments URINALYSIS AND REFLEX TO MICROSCOPIC AND CULTURE Routine 04/23/2025 12:30 PM FUR OPERATOR HEPATIC FUNCTION PANEL Routine 03/29/2025 2:35 PM CDT [place] (nonalcoholic steatohepatitis) BASIC METABOLIC PANEL Routine 03/29/2025 2:06 PM CDT Essential hypertension, benign [place] (nonalcoholic steatohepatitis) from Last 3 Months Results * Urinalysis reflex to microscopic and culture Urine (04/23/2025 12:30 PM FUR OPERATOR) Color, ur Straw Yellow Clarity, ur Clear Clear [facility] Specific gravity, ur 1.011 1.003 - 1.030 [facility] pH, urine 5.5 [facility] Comment: Interpretive Data U rine pH is affected by diet, medications, systemic acid-base disturbances, and renal tubular function. pH may affect urinary stone formation. For example, urine pH below 6.0 may help reduce the tendency for calcium phosphate stones and pH greater than 6.0 may reduce the tendency for uric acid stone formation. Source: [facility] [employer] Current Interpretive Data was last revised on 2017 Protein, ur ql Negative Negative [facility] Glucose, ur ql Negative Negative [facility] Ketones, ur Negative Negative [facility] Bilirubin, ur Negative Negative [facility] Blood, ur Negative Negative [facility] Urobilinogen, ur <2.0 <2.0 mg/dL [facility] Nitrite, ur Negative Negative [facility] Leukocyte esterase, ur Negative Negative [facility] UA reflex comment Reflex conditions for microscopic UA and culture not met. [facility] Urine 04/23/2025 12:3 0 PM FUR OPERATOR 04/23/2025 4:27 PM FUR OPERATOR Jerome Dunn MD LAB MICROBIOLOGY - GEN ERAL ORDERABLES Final Result Performing Organization Address [facility] Phone Number [facility] [place] [address] * Hepatic function panel (03/29/2025 2:35 PM CDT) Bilirubin, total 0.6 0.1 - 1.2 mg/dL Bilirubin, direct 0.2 0.1 - 0.3 mg/dL [facility] Protein, pl 7.7 6.5 - 8.5 g/dL [facility] Albumin 4.7 3.5 - 5.0 g/dL [facility] Alk phos 66 40 - 130 Units/L [facility] ALT 14 7 - 45 Units/L [facility] AST 22 10 - 45 Units/L [facility] Blood 03/29/2025 2:35 PM CDT 03/29/2025 7:55 PM CDT Jerome Dunn MD LAB BLOOD ORDERABLES F inal Result Performing Organization Address [facility] de Phone Number [facility] [place] [address] * (ABNORMAL) Basic metabolic panel (03/29/2025 2:06 PM CDT) Glucose 93 74 - 200 mg/dL [facility] [...] ORDERABLES F inal Result [facility] [address] [address], [facility] from Last 3 Months Insurance MEDICARE [facility] MEDICARE SUPPLEMENT [facility]IC[facility] MEDICARE SUPPLEMENT [facility] MEDICARE [facility] MEDICARE [employer] MEDICARE SUPPLEMENT [facility]ICARE [facility] [place] MEDICARE SUPPLEMENT Member Subscriber Plan / Payer (Ef fective 2020-Present) Name:Justa Grewal Relation to Subscriber:Self Name:Justa Grewal Payer ID:[id number] Group ID:[id number] Type:COMMERCIAL Address: [address] [place] [id number] Care Teams Sr. Manager Marketing Relationship Specialty Start Date End Date Jerome Dunn MD PCP - General Internal Medicine 11/23/17 Bandar Ferrera MD Referring Physician Neurology 11/30/17
--- OUTSIDE RECORDS SUMMARY | 2025-04-26 00:46 | XMS_ITS | Encounter Summary ---
Author Organization [facility] Address [address] [place] [address] Care Team Providers Care Greenkeeper Name Role Phone Jerome Dunn MD Primary Care Provider Encounter Details Date Type Department Care Team (Latest Contact Info) Description 01/19/2008 Outpatient [facility] Internal Medicine [facility] [address] [facility] [address] [place] [phone] Rubi Guzman MD NO ADDRESS ON FILE DM w/o Complication Type II, Uncontrolled Social History Tobacco Use Types Packs/Day Years Used Date Smoking Tobacco: Never Alcohol Use Standard Drinks/Week Comments Yes 0 (1 standard drink = 0.6 oz pur e alcohol) Comments No Sex and Gender Information Value Date Recorded Sex Assigned at Not on file 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 Gender Identity Not on file Sexual [...] CDT) HDL 47 40 - 59 mg/dL [facility] CHOLESTEROL 226(H) 100 - 199 mg/dL [facility] CHOL/HDL RATIO 4.8 2.0 - 5.0 [facility] TRIGLYCERIDE 164(H) 10 - 149 mg/dL [facility] LDL CALCULATED 146(H) <=99 mg/dL [facility] LIPID PANEL COMMENT See Below [facility] Comment: The adult ATP and pediatric NCEP classifications for lipids are available on the [facility] Intranet at: [email or web address] Select: Lab Policies and Procedures,Current Select: Lipid Panel Interpretation Blood specimen (specimen) 01/19/2008 9:35 AM CDT 01/19/2008 12:37 PM CDT Rubi Guzman MD CHEMISTRY ORDERABLES Edit ed Performing Organization Address [facility] Co de Phone Number [facility] CLIA# [id number] [address] [place] [address] * (ABNORMAL) HEMOGLOBIN A1C (01/19/2008 9:35 AM CDT) HEMOGLOBIN A1C 10.4(H) 4.1 - 6.1 % of Hgb [facility] GLUCOSE, MEAN BLOOD 293 mg/dL [facility] Blood specimen (specimen) 01/19/2008 9:35 AM CDT 01/19/2008 12:37 PM CDT Rubi Guzman MD CHEMISTRY ORDERABLES Mahi l Result Performing Organization Address City/[facility] Co de Phone Number [facility] CLIA# [id number] [address] [place] [address] * TSH (01/19/2008 9:35 AM CDT) TSH 1.59 0.27 - 4.20 uU/mL [facility] Blood specimen (specimen) 01/19/2008 9:35 AM CDT 01/19/2008 12:37 PM CDT Rubi Guzman MD CHEMISTRY ORDERABLES Mahi tolbert Result [facility] CLIA# [id number] [address] [place] [address] * (ABNORMAL) COMPREHENSIVE METABOLIC PANEL (01/19/2008 9:35 AM CDT) Pathologist [facility] CALCIUM 10.0 8.6 - 10.2 mg/dL [facility] Comment:Otto mejia ce range effective 01/11/08 ALT 20 0 - 31 U/L [facility] SODIUM 140 135 - 145 mmol/L [facility] GLUCOSE 239(H) 65 - 99 mg/dL [facility] CO2 26 22 - 30 mmol/L [facility] BILIRUBIN TOTAL 0.5 0.2 - 1.0 mg/dL [facility] CREATININE 0.63 0.51 - 0.95 mg/dL [facility] POTASSIUM 4.7 3.5 - 4.9 mmol/L [facility] TOTAL PROTEIN 7.6 6.3 - 8.6 g/dL [facility] AST 20 12 - 32 U/L [facility] BUN 13 6 - 20 mg/dL [facility] ALKALINE PHOSPHATASE 86 35 - 104 U/L [facility] ALBUMIN 4.5 3.4 - 4.8 g/dL [facility] CHLORIDE 103 96 - 108 mmol/L [facility] GFR, >60 >=60 mL/min/1. 7 sq meter [facility] GFR >60 >=60 mL/min/1. 7 sq meter [facility] Comment: Modification of Diet in Renal Disease (MDRD) study formula. Estimated GFR rate interpretative information for both Americans and non- Americans is available on the [facility] Intranet at: [email or web address] Select: Lab Policies and Procedures Select: Reference Ranges - GFR Blood specimen (specimen) 01/19/2008 9:35 AM CDT 01/19/2008 12:37 PM CDT Rubi Guzman MD CHEMISTRY ORDERABLES Edit ed [facility] CLIA# [id number] [address] [place] [address] documented in this encounter Visit Diagnoses Diagnosis Type II or unspecified type diabetes mellitus without mention of complication, uncontrolled documented in this encounter Care Teams Greenkeeper Relationship Specialty Start Date End Date Jerome Dunn MD [address] [place] [address] PCP - General Internal Medicine 10/30/20 documented as of this encounter
--- OUTSIDE RECORDS SUMMARY | 2025-04-26 00:46 | XMS_ITS | Encounter Summary ---
Author Organization [facility] Address [address] [place] [address] Care Team Providers Care Cooperer Name Role Phone Jerome Dunn MD Primary [...] on file Legal Sex Female 2:57 AM APPLICATION MANAGER Gender Identity Not on file Sexual Orientation Straight 04/11/2023 9: 46 PM CDT documented as of this encounter Plan of Treatment Not on file documented as of this encounter Visit Diagnoses Diagnosis Lumbago documented in this encounter Care Teams Cooperer Relationship Specialty Start Date End Date Jerome Dunn MD [address] [place] [address] PCP - General Internal Medicine 10/30/20 documented as of this encounter
--- OUTSIDE RECORDS SUMMARY | 2025-04-26 00:46 | XMS_ITS | Encounter Summary ---
Author Organization [facility] Address 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
--- OUTSIDE RECORDS SUMMARY | 2025-04-26 00:46 | XMS_ITS | Encounter Summary ---
Author Organization [facility] Address [address] [place] [address] Care Team Providers Care Acting Section Chief Name Role Phone Jerome Dunn MD Primary Care Provider Encounter Details Date Type Department Care Team (Latest Contact Info) Description 02/26/2008 Outpatient Historical [facility] Heart and Vascular - [facility] [address] [place] [address] [address] [place] [address] Jairon Blankenship MD [address] [place] [address] Essential Hypertension, Benign Social History Tobacco Use Types Packs/Day Years Used Date Smoking Tobacco: Never Alcohol Use Standard Drinks/Week Comments Yes 0 (1 standard drink = 0.6 oz pur e alcohol) Comments No Sex and Gender Information Value Date Recorded Sex Assigned at Not on file 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
--- OUTSIDE RECORDS SUMMARY | 2025-04-26 00:46 | XMS_ITS | Encounter Summary ---
Author Organization [facility] Address 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 Gender Identity Not on file Sexual Orientation [...] ORDERABLES Final Res ult Performing Organization Address City/[facility]/ZIP Co de Phone Number INTERFACE SYSTEM Refer [...] ORDERABLES Final Resu lt Performing Organization Address [facility] Co de Phone Number INTERFACE SYSTEM Refer to clinic/hospital department documented in this encounter Visit Diagnoses Diagnosis Postmenopausal bleeding- Primary documented in this encounter Care Teams Fountain Helper Relationship Specialty Start Date End Date Jerome Dunn MD [address] [place] [phone] PCP - General Internal Medicine 10/30/20 documented as of this encounter
--- OUTSIDE RECORDS SUMMARY | 2025-04-26 00:46 | XMS_ITS | Encounter Summary ---
Author Organization [facility] Address [address] [place] [address] Care Team Providers Care Metalizing Machine Operator Automatic Name Role Phone Jerome Dunn MD Primary Care Provider Encounter Details Date Type Department Care Team (Late st Contact Info) Description 04/08/2008 Outpatient [facility] Betzaida Hodge MD [address] [facility] [address] [place] [address] Cough Social History Tobacco Use Types Packs/Day Years Used Date Smoking Tobacco: Never Alcohol Use Standard Drinks/Week Comments Yes 0 (1 standard drink = 0.6 oz pur e alcohol) Comments No Sex and Gender Information Value Date Recorded Sex Assigned at Not on file 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 Gender Identity Not on file Sexual [...] AM CDT Narrative 04/09/2008 8:57 AM CDT [place] [address] [place], [place] [address] Admit Date: 04/08/2008 JUSTA PATIÑO Sex: F Admit Prov: BETZAIDA HODGE Date: 1945 Primary Care Prov: LYNNE CLIFTON CMRN: [id number] [facility] SSN: [id number] IMAGING SERVICES Ordering Prov: N/A Accession Number: [id number] Interpretation CT CHEST WITH IV CONTRAST, 04/08/08 [...] Procedure Note Bairon Lui MD - 04/09/2008 [facility] [address] [place], [place] [address] Admit Date: 04/08/2008 JUSTA PATIÑO Sex: F Admit Prov: BETZAIDA HODGE Date:1945 Primary Care Prov: LYNNE CLIFTON CMRN: [id number] [id number] [facility] Ordering Prov: N/A Interpretation CT [...] AM CDT Narrative 04/09/2008 7:29 AM CDT [facility] [address] [place], [place] [address] Admit Date: 04/08/2008 LAMARTRUDYJUSTA BOND Sex: F Admit Prov: BETZAIDA HODGE Date: 1945 Primary Care Prov: LYNNE CLIFTON CMRN: [id number] [facility] SSN: [id number] IMAGING SERVICES Ordering Prov: N/A Accession Number: [id number] Interpretation FLUOROSCOPY OF THE CHEST FOR ASSESSMENT OF DIAPHRAGMATIC MOTION, 04/08/2008 Clinical History: Prior neck injury, elevated diaphragm, 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 A preliminary personal injury attorney radiograph of the chest demonstrates aprominently elevated [...] Cough documented in this encounter Care Teams Metalizing Machine Operator Automatic Relationship Specialty Start Date End Date Jerome Dunn MD [address] [address] PCP - General Internal Medicine 10/30/20 documented as of this encounter
--- OUTSIDE RECORDS SUMMARY | 2025-04-26 00:46 | XMS_ITS | Encounter Summary ---
Author Organization [facility] Address 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) Social History Tobacco Use Types Packs/Day Years Used Date Smoking Tobacco: Never Assessed Comments Unknown Sex and Gender Information Value Date Recorded Sex Assigned at Not on file 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 Gender Identity Not on file Sexual [...] creatinine INTERFACE SYSTEM 03/17/2007 8:58 AM CDT PayMinsrudolph BEW GlobalblueConnectedbrenna URINE ORDERABLES Edited Performing Organization Address [facility] Phone Number INTERFACE SYSTEM Refer to clinic/hospital department * (ABNORMAL) HEMOGLOBIN A1C (03/17/2007 8:58 AM CDT) HEMOGLOBIN A1C 7.7(H) 4.1 - 6.1 % of Hgb INTERFACE SYSTEM GLUCOSE, MEAN BLOOD 197 mg/dL INTERFACE SYSTEM 03/17/2007 8:58 AM CDT MyWobileadrian McdanielConnectedbrenna CHEMISTRY ORDERABLES Edited Performing Organization Address [facility] Phone Number INTERFACE SYSTEM Refer to clinic/hospital department * TSH (03/17/2007 8:58 AM CDT) Pathologist [facility] TSH 1.57 0.27 - 4.20 uU/mL INTERFACE SYSTEM 03/17/2007 8:58 AM CDT MyWobileadrian BEW [employer]brenna CHEMISTRY ORDERABLES Edited Performing Organization Address [facility] Phone Number INTERFACE SYSTEM Refer to clinic/hospital [...] and non- Americans is available on the [facility] Intranet at: [email or web address] Proof Select: Lab Policies and Procedures Select: Reference Ranges - GFR 03/17/2007 8:58 AM CDT ttwick CHEMISTRY ORDERABLES Edited Performing Organization Address [facility] de Phone Number INTERFACE SYSTEM [...] classifications for lipids are available on the [facility] Intranet at: [email or web address] Select: Lab Policies and Procedures,Current Select: Lipid Panel Interpretation 03/17/2007 8:58 AM CDT [place] Saengsamran CHEMISTRY ORDERABLES Edited Performing Organization Address City/[facility]/ZIP Co de Phone Number INTERFACE SYSTEM Refer to clinic/hospital department documented in this encounter Visit Diagnoses Diagnosis Type II or unspecified type diabetes mellitus without mention of complication, not stated as uncontrolled- Primary documented in this encounter Care Teams Trade Marker Relationship Specialty Start Date End Date Jerome Dunn MD [address] [place] [address] PCP - General Internal Medicine 10/30/20 documented as of this encounter
--- OUTSIDE RECORDS SUMMARY | 2025-04-26 00:46 | XMS_ITS | Encounter Summary ---
Author Organization [facility] Address [address] [place] [address] Care Team Providers Care Senior Hardware Engineer Name Role Phone Jerome Dunn MD Primary Care Provider Encounter Details Date Type Department Care Team (Late st Contact Info) Description 08/20/2005 Outpatient [facility] Internal Medicine [facility] [address] [place] [address] Jairon Blankenship MD [address] [place] [address] Social History Tobacco Use Types Packs/Day Years Used Date Smoking Tobacco: Never Assessed Comments Unknown Sex and Gender Information Value Date Recorded Sex Assigned at Not on file Legal Sex Female 2:57 AM CLINICAL 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 Gender Identity Not on file Sexual Orientation Straight 04/11/2023 9: 46 PM CDT documented as of this encounter Last Filed Vital Signs Vital Sign Reading Time Taken Comments Blood Pressure 174/100 08/20/2005 1:00 PM CLINICAL 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 Pulse 84 08/20/2005 1:00 PM CLINICAL 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 Temperature 37.2 C (98.9 F) 08/20/2005 1:00 PM CLINICAL 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 Respiratory Rate 20 08/20/2005 1:00 PM CLINICAL 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 Oxygen Saturation - - Inhaled Oxygen Concentration - - Weight 107.5 kg (237 lb) 08/20/2005 1:00 PM CLINICAL 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 Height 166.4 cm (5' 5.5) 08/20/2005 1:00 PM CLINICAL 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 Body Mass Index 38.84 08/20/2005 1:00 PM CLINICAL 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 documented in this encounter Plan of Treatment Not on file documented as of this encounter Visit Diagnoses Not on filedocumented in this encounter Care Teams Senior Hardware Engineer Relationship Specialty Start Date End Date Jerome Dunn MD [address] [place] [address] PCP - General Internal Medicine 10/30/20 documented as of this encounter
--- OUTSIDE RECORDS SUMMARY | 2025-04-26 00:46 | XMS_ITS | Encounter Summary ---
Author Organization [facility] Address 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 Ángel Mckenna MD NO ADDRESS ON FILE Other Nonspecific Abnormal Cardiovascular System Function Study Social History Tobacco Use Types Packs/Day Years Used Date Smoking Tobacco: Never Alcohol Use Standard Drinks/Week Comments Yes 0 (1 standard drink = 0.6 oz pur e alcohol) Comments No Sex and Gender Information Value Date Recorded Sex Assigned at Not on file 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 Gender Identity Not on file Sexual [...] CDT) MCV 83.3 82.0 - 99.0 fL [facility] RBC 4.91(H) 3.90 - 4.90 M/uL [facility] PLATELETS 207 140 - 350 K/uL [facility] RDW 14.1 11.5 - 14.5 % [facility] MCH 28.1 27.2 - 32.6 pg [facility] MPV 10.8 9.3 - 12.4 fL [facility] HEMOGLOBIN 13.8 11.8 - 14.8 g/dL [facility] HEMATOCRIT 40.9 35.5 - 44.0 % [facility] RDW-STDEV 42.5 37.1 - 48.7 fL [facility] WBC 9.2 4.0 - 9.8 K/uL [facility] MCHC 33.7 31.5 - 35.5 % [facility] NEUTROPHIL ABSOLUTE 6.10 1.90 - 7.00 K/uL [facility] EOSINOPHILS 2 0 - 7 % [facility] EOSINOPHIL ABSOLUTE 0.15 0.00 - 0.70 K/uL [facility] LYMPHOCYTES 25 16 - 45 % [facility] LYMPHOCYTE ABSOLUTE 2.27 0.70 - 4.50 K/uL [facility] BASOPHILS 0 0 - 2 % [facility] BASOPHILS ABSOLUTE 0.02 0.00 - 0.20 K/uL [facility] MONOCYTES 7 3 - 13 % [facility] MONOCYTE ABSOLUTE 0.66 0.10 - 1.30 K/uL [facility] NEUTROPHILS 66 45 - 70 % [facility] Blood specimen (specimen) 02/28/2008 7:04 AM CDT 02/28/2008 7:12 AM CDT us Ángel Mckenna MD HEMATOLOGY ORDERABLES Edited Performing Organization Address City/State/[facility] de Phone Number INTERFACE SYSTEM Refer to clinic/hospital department [facility] CLIA# [id number] [address] [place] [address] * (ABNORMAL) BASIC METABOLIC PANEL (02/28/2008 7:04 AM CDT) CALCIUM 9.3 8.6 - 10.2 mg/dL [facility] CO2 22 22 - 30 mmol/L [facility] CREATININE 0.68 0.51 - 0.95 mg/dL [facility] POTASSIUM 3.8 3.5 - 4.9 mmol/L [facility] BUN 12 6 - 20 mg/dL [facility] CHLORIDE 105 96 - 108 mmol/L [facility] GLUCOSE 153(H) 65 - 99 mg/dL [facility] SODIUM 139 135 - 145 mmol/L [facility] GFR, >60 >=60 mL/min/1. 7 sq meter [facility] GFR >60 >=60 mL/min/1. 7 sq meter [facility] Comment: Modification of Diet in Renal Disease (MDRD) study formula. Estimated GFR rate interpretative information for both Americans and non- Americans is available on the [facility] Intranet at: [email or web address] [email or web address] [email or web address] [email or web address] Select: Lab Policies and Procedures Select: Reference Ranges - GFR Blood specimen (specimen) 02/28/2008 7:04 AM CDT 02/28/2008 7:12 AM CDT Ángel Mckenna MD CHEMISTRY ORDERABLES Edited Performing Organization Address [facility] Co de Phone Number INTERFACE SYSTEM Refer to clinic/hospital department [facility] CLIA# [id number] [address] [place] [address] * PROTIME-INR (02/28/2008 7:04 AM CDT) PROTIME 14.3 12.7 - 15.1 Seconds [facility] INR 1.1 0.9 - 1.1 [facility] Comment: INR Therapeutic Range: Adult: 2.0 - 3.0 for pulmonary embolism or prophylaxis against venous thrombosis or systemic embolization. 2.0 - 3.0 for patients with tissue heart valves. 2.5 - 3.5 for patients with mechanical heart valves or post SC. Pediatric (12 years and under): 1.5 - 3.0 Although the target range in children is not well established, INR values of 1.5 - 3.0 are recommended for most patients. Higher values have been used in children with prosthetic cardiac valves and hereditary clotting disorders. Midnight (<3 days) therapeutic ranges have not been established. Blood specimen (specimen) 02/28/2008 7:04 AM CDT 02/28/2008 7:12 AM CDT us Ángel Mckenna MD HEMATOLOGY ORDERABLES Final Resu lt INTERFACE SYSTEM Refer to clinic/hospital department [facility] CLIA# [id number] [address] [place] [address] documented in this encounter Visit Diagnoses Diagnosis Other nonspecific abnormal cardiovascular system function study documented in this encounter Care Teams Gaming Floor Supervisor Relationship Specialty Start Date End Date Jerome Dunn MD [address] [place] [address] PCP - General Internal Medicine 10/30/20 documented as of this encounter
[2025-04-26 00:47] VITALS: BP 137/78; PULSE 66; RESP 15; O2SAT 100
[2025-04-26 01:01] VITALS: BP 122/61; PULSE 65; RESP 14; O2SAT 100
[2025-04-26 01:16] VITALS: BP 111/66; PULSE 68; RESP 19; O2SAT 99
[2025-04-26 01:31] VITALS: BP 143/50; PULSE 71; RESP 17; O2SAT 100
[2025-04-26] MEDS: ACETAMINOPHEN 500 MG TABLET 1000 MG PO (01:43)
[2025-04-26 01:45] VITALS: PULSE 89; RESP 24
== END 2025-04-26 02:01 | disposition home or self-care (01) ==
PROVIDERS: Emergency Provider Student in an Organized Health Care Education/Training Program; PCP Internal Medicine
DX: S00.83XA Contusion of other part of head, initial encounter (principal); M25.561 Pain in right knee; W18.30XA Fall on same level, unspecified, initial encounter; Z96.651 Presence of right artificial knee joint
CPT/HCPCS: 70450; 72125; 73562; 99284; A9270